=== PATIENT | female | born 1935 | race Two or more races ===

== ENCOUNTER 2019-09-11 13:28 | Outpatient (CLI) | payer OTHER, SELFPAY ==
--- NOTE | ~2019-09-11 | XR_ITS ---
XR ribs LT 2V DATE: 09/11/2019 15:04 INDICATION: Lateral left rib pain. History of left breast cancer. TECHNIQUE: 3 views of left ribs COMPARISON: None FINDINGS: Diffuse osteopenia. No rib fracture or bone destruction is noted on the left. No left pulmonary infiltrate or consolidation or pneumothorax or pleural effusion. There is aortic calcification, ectasia and tortuosity. There is scoliosis and degenerative change of the thoracic and lumbar spine. IMPRESSION: Osteopenia; no evidence of left rib fracture Reviewed, dictated and finalized at location A.
--- NOTE | ~2019-09-11 | MMUS_ITS ---
EXAMINATION: MM diagnostic javi LT w lamonte, US breast LT limited HISTORY: Patient with biopsy-proven left breast cancer undergoing chemotherapy only therapy. TECHNIQUE: Craniocaudal, mediolateral, and mediolateral oblique 3-D tomosynthesis images of the left breast were performed and synthetic 2-D images were generated. An exaggerated lateral left craniocaud al image is also obtained. CAD analysis was submitted and interpreted. High resolution limited left b reast ultrasound was performed. COMPARISON: 01/02/2018 BREAST PARENCHYMAL COMPOSITION: The breasts are heterogeneously dense, which may obscure small masses . FINDINGS: MAMMOGRAPHIC FINDINGS: A biopsy marker is present in the posterior third of the upper outer quadrant of the breast at the 1: 00 location 9 cm from the nipple. Just posterior to this, there is a 2.6 x 1.5 cm irregular high dens ity spiculated mass with associated architectural distortion 10 cm from the nipple. ULTRASOUND: There is an approximately 2.5 x 1.1 cm irregular, parallel, hypoechoic mass with microlobulated borde r, internal vascularity, and mixed posterior features at the 1:00 location 6 cm from the nipple corre sponding to the mammographic finding in question. The mass has not significantly changed since the pr ior comparison ultrasound examination. IMPRESSION: 1. Stable left breast mass apparently consistent with known malignancy. 2. Recommend imaging follow-up as directed by clinical findings and desire for treatment. BI-RADS category 6, known, biopsy-proven malignancy. Reviewed, dictated and finalized at location A. IMPRESSION: 1. Stable left breast mass apparently consistent with known malignancy. 2. Recommend imaging follow-up as directed by clinical findings and desire for treatment. BI-RADS category 6, known, biopsy-proven malignancy.
== END 2019-09-11 13:29 | disposition home or self-care (01) ==
PROVIDERS: PCP Internal Medicine Medical Oncology; Visit Provider Internal Medicine Medical Oncology
DX: C50.411 Malignant neoplasm of upper-outer quadrant of right female breast (principal); Z17.0 Estrogen receptor positive status [ER+]; M85.88 Other specified disorders of bone density and structure, other site
CPT/HCPCS: 71100; 76642; 77061; 77065; G0279

== ENCOUNTER 2023-09-23 10:24 | Outpatient (CLI) | payer OTHER, SELFPAY ==
--- NOTE | ~2023-09-23 | MR_ITS ---
EXAMINATION: MR brain/brain stem wo con DATE: 09/23/2023 11:44 INDICATION: Dizziness. TECHNIQUE: Magnetic resonance imaging (MRI) of the brain and brainstem was performed without intraven ous contrast. COMPARISON: Brain MRI 10/22/2018, head CT 07/17/2012 FINDINGS: There are scattered areas of nonspecific increased T2-weighted signal intensity in the cere bral white matter. There is no intracranial hemorrhage, acute infarction, or abnormal intracranial ma ss lesion. The ventricles are normal in size. There is mucosal thickening in the paranasal sinuses. T here are likely changes of ocular lens replacement surgeries. The mastoid air cells are normal. IMPRESSION: 1. Moderate nonspecific cerebral white matter disease, which likely represents chronic small vessel i schemic disease, stable from 10/22/2018. Reviewed, dictated and finalized at location E. IMPRESSION: 1. Moderate nonspecific cerebral white matter disease, which likely represents chronic small vessel ischemic disease, stable from 10/22/2018.
== END 2023-09-23 10:25 ==
LOC: MICIMG 10:25
PROVIDERS: PCP Nurse Practitioner Family; Visit Provider Nurse Practitioner Family
DX: R42 Dizziness and giddiness (principal); R29.90 Unspecified symptoms and signs involving the nervous system
CPT/HCPCS: 70551

== ENCOUNTER 2024-04-29 09:58 | Inpatient (IN) | payer OTHER, SELFPAY ==
[2024-04-29] VITALS (7 sets, daily range): BP systolic 113–162; BP diastolic 53–99; PULSE 98–108; RESP 18–20; TEMP 36.8–38.1; O2SAT 94–100; BMI 22.2
--- NOTE | ~2024-04-29 | XR_ITS ---
EXAMINATION: XR knee LT 3V DATE: 04/29/2024 14:08 INDICATION: Left knee pain TECHNIQUE: Anteroposterior, oblique and crosstable lateral views of the left knee were obtained COMPARISON: None. FINDINGS: Alignment is normal. No fracture. Chondral calcinosis in the medial lateral compartments of the knee s. Joint spaces appear normal in all 3 compartments although this could be underestimated on nonweigh tbearing imaging. There are small marginal osteophytes in all 3 compartments. There is also a central subchondral osteophyte at the apical ridge of the patella suggesting overlying high-grade chondromal acia. Moderate-sized left knee joint effusion without layering lipohemarthrosis. Soft tissues are oth erwise unremarkable. IMPRESSION: 1. Moderate-sized left knee joint effusion. No acute osseous abnormality. 2. Chondrocalcinosis and least mild tricompartmental osteoarthritis with likely high-grade chondromal acia along the patellar apical ridge. Reviewed, dictated and finalized at location B. H STRIPPER IMPRESSION: 1. Moderate-sized left knee joint effusion. No acute osseous abnormality. 2. Chondrocalcinosis and least mild tricompartmental osteoarthritis with likely high-grade chondromalacia along the patellar apical ridge.
--- NOTE | ~2024-04-29 | XR_ITS ---
XR chest 1V portable Ordering provider: Shirley Dumont MD History: 88 years Female with . WEAKNESS . Comparison: None. FINDINGS: MEDIASTINUM: The cardiac silhouette is not enlarged. LUNGS: No infiltrates, effusions or pneumothorax. OTHER: No free air under the diaphragm. Degenerative changes of the spine. IMPRESSION: No acute cardiopulmonary pathology. Reviewed, dictated and finalized at location A. NESS REPORTER
--- NOTE | ~2024-04-29 | MR_ITS ---
EXAMINATION: MR knee RT wo con DATE: 05/01/2024 12:39 INDICATION: Locked right knee TECHNIQUE: Magnetic resonance imaging (MRI) of the right knee was performed without intravenous contr ast. Sequences included coronal PD-weighted FSE, coronal PD-weighted FS FSE, sagittal T2-weighted FS E, sagittal PD-weighted FS FSE and axial PD weighted fat saturated FSE. COMPARISON: Right knee radiographs dated 04/29/2024 FINDINGS: Evaluation mild to moderately limited by motion artifact on the sagittal and coronal images. Medial compartment: Medial meniscus is normal. There are some partial-thickness chondral fissuring with tiny central subc hondral osteophytes at the posterior weightbearing medial femoral condyle. Small marginal osteophytes are present. Lateral compartment: Complex tear with macerated appearance of the body of the lateral meniscus. The anterior horn is not identified with either secondary degeneration or displacement of the meniscal tissue. Deep chondral ulceration without degenerative subchondral changes along the central to posterior weightbearing late ral femoral condyle. Additional deep chondral ulceration also without degenerative subchondral change s at the posterior aspect of the lateral tibial plateau. Moderate size marginal osteophytes are prese nt. Patellofemoral compartment: Deep chondral ulceration with underlying subarticular cystlike changes at the inferior third of the l ateral patellar facet. Less severe partial thickness chondral fissuring at the patellar apical ridge. There is deep chondral fissuring without degenerative subchondral changes at the inferior aspect of the trochlear groove. Full-thickness chondral ulceration with surface irregularity and small central subchondral osteophytes along the inferior aspect of the medial lateral trochlea. Ligaments and tendons: Anterior and posterior cruciate ligaments are normal. The medial collateral ligament is normal. There is thickening and mild increased signal without surrounding edema at the proximal fibular collateral ligament consistent with scarring related to chronic sprain. Mild tendinopathy without tear at the p opliteal tendon. Patellar tendon is normal. Mild distal quadriceps tendinopathy without discrete tear . The visualized medial and lateral hamstring tendons as well as the iliotibial band are normal. Fluid: Moderate-sized right knee joint effusion with mild sclerosis at the suprapatellar pouch. No loose ost eochondral bodies identified. Osseous/other: No fracture or pathologic marrow replacing process. Subcutaneous edema about the right knee. IMPRESSION: 1. Complex lateral meniscal tear with macerated appearance of the meniscal body and no discernible an terior horn suggesting significant secondary displacement or degeneration of the meniscal tissue. 2. 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 3. Scarring consistent with chronic sprain of the proximal fibular collateral ligament. 4. Mild tendinopathy without tears at the quadriceps and popliteal tendons. 5. Likely reactive moderate sized right knee joint effusion. Reviewed, dictated and finalized at location B. TATION MECHANIC IMPRESSION: 1. Complex lateral meniscal tear with macerated appearance of the meniscal body and no discernible anterior horn suggesting significant secondary displacement or degeneration of the meniscal tissue. 2. 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 3. Scarring consistent with chronic sprain of the proximal fibular collateral l igament. 4. Mild tendinopathy without tears at the quadriceps and popliteal tendons. 5. Likely reactive moderate sized right knee joint effusion.
--- NOTE | ~2024-04-29 | XR_ITS ---
EXAMINATION: XR hip LT 2V w AP pelvis DATE: 04/29/2024 14:08 INDICATION: Left hip pain. TECHNIQUE: An anteroposterior view of the pelvis and 3 views of left hip were obtained. COMPARISON: None. FINDINGS: There is thoracolumbar dextroscoliosis and mild spondylosis. No fracture. There is mild ost eoarthritis of the hips. IMPRESSION: 1. Mild osteoarthritis of the hips. Reviewed, dictated and finalized at location A. OR WEB DEVELOPER
--- NOTE | ~2024-04-29 | XR_ITS ---
XR knee RT 3V Ordering provider: Josh Mensah MD History: . pain . Comparison: None. FINDINGS: BONES: No acute fracture or dislocation. JOINT SPACES: Narrowing of the lateral compartment. Chondrocalcinosis. Marginal osteophytes in the pa tella. SOFT TISSUES: Fluid seen in the suprapatellar bursa. IMPRESSION: No acute osseous abnormality right knee. Chondrocalcinosis. Mild to moderate osteoarthritic changes. Reviewed, dictated and finalized at location A. FIRST
--- NOTE | ~2024-04-29 | XR_ITS ---
HISTORY: fall, pain COMPARISON: None TECHNIQUE: 3 views of the left ankle were performed FINDINGS: No acute fracture or dislocation. No significant soft tissue swelling. The ankle mortise is preserved. Diffuse bony demineralization. Moderate calcaneal spur is demonstrated. IMPRESSION: Trace degenerative disease and diffuse bony demineralization without acute fracture. Reviewed, dictated and finalized at location A. GY PROJECT ENGINEER IMPRESSION: Trace degenerative disease and diffuse bony demineralization witho ut acute fracture.
--- NOTE | ~2024-04-29 | XR_ITS ---
HISTORY: fall, pain COMPARISON: None TECHNIQUE: 3 views of the right ankle were performed FINDINGS: No acute fracture or dislocation. No significant soft tissue swelling. The ankle mortise is preserved. Diffuse bony demineralization. Prominent calcaneal spur. Significant medial tibiotalar joint space narrowing with osteophyte formation. IMPRESSION: Degenerative disease and diffuse bony demineralization without acute fracture. Reviewed, dictated and finalized at location A. HER OF THE DEAF IMPRESSION: Degenerative disease and diffuse bony demineralization without acu te fracture.
--- OUTSIDE RECORDS SUMMARY | 2024-04-29 11:04 | XMS_ITS | Clinical Summary ---
Author Organization [facility] Address [address] [place] [address] Phone Care Team Providers Care Baker Bread Name Role Phone Leora Bullock MD Unavailable [phone] Brigitte Michael MD PhD Unavaila ble Shira Gold NP Unavailable [phone] Allergies Active Allergy Reactions Criticality Noted Date Comments Lisinopril Swelling Medium 01/13/2020 Medications anastrozole (ARIMIDEX) 1 mg tabletIndications: Hormone Receptor Positive Breast Cancer Take 1 tablet (1 mg total) by mouth daily 30 tablet 3 Active pimecrolimus (ELIDEL) 1 % cream 4 Active ibandronate (BONIVA) 150 mg tablet Take 1 tablet (150 mg total) by mouth every 30 (thirty) days Take in AM with glass of water prior to food, don't lie down for 30 minutes. 1 tablet 11 4 01/03/20 25 Active levothyroxine (SYNTHROID) 50 mcg tabletIndications: Acquired hypothyroidism TAKE 1 TABLET BY MOUTH ONCE DAILY IN THE MORNING BEFORE BREAKFAST 30 tablet 5 Active Active Problems Problem Noted Date Diagnosed Date Medicare annual wellness visit, subsequent 03/21 Assessment & Plan (03/21/2023 1:02 PM BRANCH LENDING MANAGER): A yearly Medicare Annual Wellness Visit has been performed today. Liz Harp is up to date on screening tests. She is in need of None- no screening indicated at this time- these have been ordered. She is not up to date on needed preventative vaccinations; She is in need of Covid-19 (booster). These have been ordered/arranged unless otherwise indicated. Hair loss 05/18/2021 Assessment & Plan (05/18/2021 10:29 PM CDT): In talking with patient concern that she is losing a lot of hair all over her scalp. Note at this time she has her hair tightly pulled back into a bun. She is wearing her hair this way due to hair loss. Does not know that if it is from chemotherapy or other treatment that she had for her cancer in 2018. Note no new medication at this time. With evaluation of scalp it appears that she is breaking off her hair do to the hair style she is doing. Suggested she let her hair down while in house are where hair in a more relaxed style. Suggested using shampoo Nioxin #3 same livestock commission agent in his scalp treatment. Told her it would take about 3 months for this to start working and she should see new hair growth. Also suggested seen a mechanical operator in regards to this problem. History of breast cancer 01/19/2021 Personal history of radiation therapy 11/25/2020 History of 2019 novel coronavirus disease (COVID -19) 02/23/2020 Bilateral hearing loss 01/22/2020 Assessment & Plan (02/07/2021 5:21 PM BRANCH LENDING MANAGER): Monitor hearing for change. Let provider know if change. Assessment & Plan (01/22/2020 3:39 PM BRANCH LENDING MANAGER): Have Eye Evaluation Hearing test and [facility] BMI 21.0-21.9, adult 01/06/2020 Assessment & Plan (02/07/2021 5:20 PM BRANCH LENDING MANAGER): Watch diet, eat 3 meals a day or 6 small meals a day. Use fortified cereals or shakes. Weight weekly. Make sure you are drinking adequate fluids. Age-related osteoporosis wit hout current pathological fracture 01/06/2020 Assessment & Plan (01/06/2020 1:34 PM BRANCH LENDING MANAGER): On Fosamax, will refill. Patient due for another bone density study. Order placed. Arthralgia of multiple joints 01/06/2020 Assessment & Plan (03/21/2023 1:01 PM BRANCH LENDING MANAGER): Continues topical Voltaren prn. Discussed oral medications but want to check labs first. Also suggested Collagen Peptides. Assessment & Plan (02/07/2021 5:26 PM BRANCH LENDING MANAGER): Talked about bilateral knee pain and options to care. Encouraged not to do keep knee bends, squatting, kneeling on knees. Exercise gently not to injur knees more. Topical OTC meds discussed for joint pain. Also talked about shoes and avoiding wearing high heels. Assessment & Plan (01/06/2020 1:34 PM BRANCH LENDING MANAGER): [id number]-inx-sawomqx pain relievers or choice recommended. Lgdvp-lk-oczqky exercises encouraged. Essential hypertension 01/06/2020 Assessment & Plan (09/19/2023 1:44 PM CDT): BP in good shape. Updated labs ordered. Assessment & Plan (03/21/2023 1:01 PM BRANCH LENDING MANAGER): BP in good shape. Updated labs ordered. Assessment & Plan (05/18/2021 10:31 PM CDT): Continue with high blood pressure medication as ordered. Watch diet for added salt or salty food. Exercise for 30 minutes 3 times a week as tolerated Suggested doing some long bone exercises. Assessment & Plan (02/07/2021 5:19 PM BRANCH LENDING MANAGER): Continue medications as directed. Watch diet for salt, avoid adding salt. Monitor BP at home daily, minimum of 3 times a week. Exercise as tolerated 3 times a week. Assessment & Plan (01/06/2020 11:13 AM BRANCH LENDING MANAGER): Trial of lisinopril 2.5 mg once a day. Low-sodium diet recommended. Aromatase inhibitor use 05/24/2018 Malignant neoplasm of upper- outer quadrant of left breast in female, estrogen receptor positive 01/30/2018 Cancer Staging:Clinical stage from 03/01/2018:Stage IB(cT1c, cN1, cM0, G2, ER: Positive, AZ: Positive, HER2: Negative, Oncotype DX score: 6) - Unsigned Pathologic stage from 07/14/2020:No Stage Recommended(ypT2, pN1, cM0, G2, ER+, AZ+, HER2-) - Signed by Brigitte Michael MD PhD on 07/14/2020 Assessment & Plan (02/07/2021 5:23 PM BRANCH LENDING MANAGER): Continue with oncology as advised by specialty. Continue with meds as directed. Assessment & Plan (01/12/2020 7:59 PM BRANCH LENDING MANAGER): On Arimidex. Managed by oncology Resolved Problems Problem Noted Date Diagnosed Date Resolved Date Dizziness and giddiness 01/06/202007/29 Assessment & Plan (01/22/2020 3:39 PM BRANCH LENDING MANAGER): Have Eye Evaluation Hearing test and [facility] Assessment & Plan (01/06/2020 1:33 PM BRANCH LENDING MANAGER): No dizziness today. Referred to ENT for further evaluation and management. Encounters Date Type Department Care Team Description 02/05/2024 [facility] Medical Office Building 2 Radiation Oncology [address] [place] [id number] Indigo Patterson PA from Last 3 Months Immunizations Immunization Administration Dates Next Due Influenza, Quadrivalent, Delores l Culture-based MDCK, Preservative Free, Antibiotic Free, Intramuscular 01/14/2021,03/01/2018 Influenza, Quadrivalent, Hig h Dose, Preservative Free, Intrr 01/06/2020 Influenza, Trivalent, IM (MDV) 02/01/2012 Influenza, Unspecified 03/21/2023(Deferr ed: Patient Refused),02/27/2022(Deferred: Patient Refused) Alberto (J&J) SARS-CoV-2 Vaccination 05/07/2020 Surgical History Surgery Date Site/Laterality Comments COLONOSCOPY BREAST LUMPECTOMY 02/27/2017 - 02/26/2018 Left BREAST LUMPECTOMY 06/27/2020 - 07/27/2020 Left BREAST BIOPSY Medical History Medical History Date Comments Breast cancer (HCC) 2018 History of radiation therapy 09/2020 Family History Medical History Relation Name Comments Breast cancer Neg Hx Endometrial cancer Neg Hx Ovarian cancer Neg Hx Thyroid cancer Neg Hx Relation Name Status Comments Father Mother Social History Tobacco Use Types Packs/Day Years Used Date Smoking Tobacco: Never Smokeless Tobacco: Never Tobacco Cessation:Counseling Given: Not Answered Alcohol Use Standard Drinks/Week Comments No 0 (1 standard drink = 0.6 oz pur e alcohol) AUDIT-C Answer Date Recorded Frequency of Alcohol Consumption Not on file 08/15/2022 Q2: How many drinks containi ng alcohol do you have on a typical day when you are drinking? Patient does not drink Frequency of Binge Drinking Not on file 07/28 PHQ-2 Answer Date Recorded PHQ-2 Total Score (If total score is 3 or more points, staff should administer the PHQ-9) 0 09/19/2023 Comments No Sex and Gender Information Value Date Recorded Sex Assigned at Not on file Legal Sex Female 4:52 AM BRANCH LENDING MANAGER Gender Identity Not on file Sexual Orientation Not on file Obstetrics History Para Term AB IAB SAB Ectopic Multiple Livin g Live Births 1 1 Date Outcome GA Total Labor Labor/2nd/3rd Weight Sex Type Anes PTL Nicole A1 A5 Name Clin Term Last Filed Vital Signs Vital Sign Reading Time Taken Comments Blood Pressure 130/80 09/19/2023 12:33 PM CDT Pulse 74 09/19/2023 12:33 PM CDT Temperature 36.7 C (98.1 F) 09/19/2023 12:33 PM CDT Respiratory Rate 18 05/09/2023 6:50 PM CDT Oxygen Saturation 98% 09/19/2023 12:33 PM CDT Inhaled Oxygen Concentration - - Weight 53.1 kg (117 lb) 09/19/2023 12:33 PM CDT Height 157.5 cm (5' 2 ) 09/19/2023 12:33 PM CDT Body Mass Index 21.4 09/19/2023 12:33 PM CDT Plan of Treatment Health Maintenance Due Date Last Done Comments DTaP/Tdap/Td Vaccine (1 - Tdap) 06/02/1946 Hepatitis B Screening 1953 Pneumococcal vaccine 65+ (1 of 2 - PCV) 06/02/1955 Zoster Vaccine (1 of 2) 06/02/1954 Covid-19 Vaccine (2 - Jansse n risk series) 06/04/2020 05/07/2020 Influenza Vaccine (#1) 2023 , 01/06/2020, 03/01/2018, Additional history exists Well Visit 65+ 03/21/2024 03/21/2023 Depression Screening 09/18/2024 09/19/2023, 03/21/2023, 05/07/2021, Additional history exists Fall Risk Assessment 09/18/2024 09/19/2023, 03/21/2023, 02/05/2021, Additional history exists Insurance [facility] backstitch [facility] Care Teams Baker Bread Relationship Specialty Start Date End Date Leora Bullock MD Radiation Oncologist Radiation Oncology 08/25/20 Brigitte Michael MD PhD [address] [place] [address] [place] [address] Surgeon Surgical Oncology 08/27/20 Shira Gold NP [address] [place] [id number] Nurse Practitioner Medical Oncology 02/15/23
--- OUTSIDE RECORDS SUMMARY | 2024-04-29 11:04 | XMS_ITS | Patient Health Summary ---
Author Organization [facility] Address [address] [place] [address] Care Team Providers Care Hand Wood Sander Name Role Phone Germain Jewell MD Primary Care Provider [phone] Note from [facility],non-owned Affiliates and Associated Physician Practices is amultiple site organization consisting of ambulatory clinics and hospital sitesin [place], [place], [place] and [place]. This disclosure is being madepursuant to the Care Everywhere program and may not contain all information available regarding this patient. Last updated 17.[facility] Social History Tobacco Use Types Packs/Day Years Used Date Smoking Tobacco: Never Assessed Sex and Gender Information Value Date Recorded Sex Assigned at Not on file Gender Identity Not on file Sexual Orientation Not on file Procedures * MRI BREAST BILAT [facility]WO CONTRAST(Performed 02/13/2018) Performed for Malignant neoplasm of upper-outer quadrant of left breast in female, estrogen receptor positive (HCC), Estrogen receptor positive * CREATININE BLOOD - POCT (IP) [facility](Performed 02/13/2018) Performed for Estrogen receptor positive Results * (ABNORMAL) MRI BREAST BILAT WWO CONTRAST (02/13/2018 8:15 PM FRONT DESK AGENT) Anatomical Region Laterality Modality Breast Bilateral Magnetic Resonan ce 02/14/2018 9:57 AM FRONT DESK AGENT Impressions 02/14/2018 2:13 PM FRONT DESK AGENT IMPRESSION: Right breast: No MR evidence of malignancy. Left breast: Irregular enhancing mass in the upper-outer quadrant of the left breast measuring 3.3 cm, consistent with patient's biopsy-proven malignant neoplasm. Enlarged left axillary lymph node is concerning for henrik involvement disease. ASSESSMENT: BI-RADS category 6: Known biopsy-proven cancer. RECOMMENDATION: Management per the patient's breast surgeon is recommended. I, Dr. CJ SHARMA M.D. have personally reviewed and interpreted this examination/study. This report was electronically signed by CJ SHARMA M.D. on 02/14/2018 2:13 PM . Narrative 02/14/2018 2:13 PM FRONT DESK AGENT BILATERAL BREAST MRI HISTORY: 82-year-old female with malignant neoplasm of the upper outer quadrant of the left breast, evaluate extent of disease COMPARISON: Comparison was made to previous breast ultrasound dated 01/02/2018. No pre or post biopsy mammograms are available for review at this time. TECHNIQUE: Multiplanar multisequence MR imaging of both breasts before and following the administration of 5.5 cc of Gadavist. Dynamic phase imaging was performed in the axial plane. Exam was processed by and interpreted on a POI dining room server including 3-D volume rendering, subtraction image processing and contrast kinetic analysis. FINDINGS: Background tissue pattern: Heterogeneous fibroglandular tissue. Degree of background parenchymal enhancement: mild. RIGHT BREAST: There is no suspicious mass or area of abnormal enhancement in the left breast. There is no abnormality of the right axilla, chest wall, or nipple areolar complex. LEFT BREAST: There is an irregular, spiculated enhancing mass in the upper outer quadrant of the left breast measuring 3.3 x 1.6 cm (series 6, image 79), consistent with the patient's biopsy-proven malignant neoplasm. There is an enlarged left axillary lymph node measuring 1.8 cm short axis (series 5, image 52), concerning for henrik involvement of disease. Although this mass is in close proximity to the left chest wall, no abnormal enhancement of the left chest wall or nipple areolar complex is seen. Inna Block DO ORDERABLES * (ABNORMAL) CREATININE BLOOD - POCT (IP) [facility] (02/13/2018 7:17 PM FRONT DESK AGENT) Creatinine POCT 1.40(A) 0.3 - 1.3 mg/dL [facility] POCT TESTING eGFR POCT 43(A) 60 ml/min [facility] POCT TESTING Blood BLOOD SPECIMEN / Unknown 02/13/2018 7:17 PM FRONT DESK AGENT Inna Block DO LAB - POINT OF CARE ORDERABLES [facility] POCT TESTING [id number] [phone] Care Teams Hand Wood Sander Relationship Specialty Start Date End Date Germain Jewell MD [address] [place] [address] PCP - General Family Medicine 02/13/18
--- OUTSIDE RECORDS SUMMARY | 2024-04-29 11:04 | XMS_ITS | Clinical Summary ---
Author Organization [facility] Address [address] [place] [address] Care Team Providers Care Architecture Analyst Name Role Phone Tahmina Retana DO Primary Care Provider [phone] Allergies No known active allergies Medications anastrozole (ARIMIDEX) 1 mg tablet 03/01/2018 Active Active Problems Problem Noted Date Diagnosed Date Aromatase inhibitor use 05/24/2018 Malignant neoplasm of upper- outer quadrant of left breast in female, estrogen receptor positive 01/30/2018 Resolved Problems Problem Noted Date Diagnosed Date Resolved Date Abnormal MRI, breast 02/16/2018 019 Lump of left breast 01/17/2018 05/25/19 19 Abnormal ultrasound of breast 01/17/2018 05/24/2018 Family History Medical History Relation Name Comments Diabetes Daughter Healthy Daughter Relation Name Status Comments Brother Alive Daughter Alive Father Maternal Grandfather Maternal Grandmother Mother Paternal Grandfather Paternal Grandmother Social History Tobacco Use Types Packs/Day Years Used Date Smoking Tobacco: Former Cigarettes 2 50 0 [birth year]1945 - 07/29/1995 Smokeless Tobacco: Never Tobacco Cessation:Counseling Given: Yes Alcohol Use Standard Drinks/Week Comments No 0 (1 standard drink = 0.6 oz pur e alcohol) Comments No Sex and Gender Information Value Date Recorded Sex Assigned at Not on file Legal Sex Female 8:20 AM SALES AGENT PROTECTIVE SERVICE Gender Identity Not on file Sexual Orientation Not on file 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 Not on file Not on file Not on file Last Filed Vital Signs Vital Sign Reading Time Taken Comments Blood Pressure 118/70 10/02/2019 10:58 AM CDT Pulse 68 08/29/2018 1:37 PM CDT Temperature 36.4 C (97.6 F) 04/16/2019 12:24 PM SALES AGENT PROTECTIVE SERVICE Respiratory Rate - - Oxygen Saturation 99% 08/29/2018 1:37 PM CDT Inhaled Oxygen Concentration - - Weight 55.3 kg (122 lb) 10/02/2019 10:58 AM CDT Height 162.6 cm (5' 4 ) 10/02/2019 10:58 AM CDT Body Mass Index 20.94 10/02/2019 10:58 AM CDT Plan of Treatment Health Maintenance Due Date Last Done Comments DTAP/TDAP/TD VACCINES (1 - Tdap) 06/02/1954 PNEUMOCOCCAL VACCINE 50+ YEA RS (1 of 1 - PCV) 1986 ZOSTER VACCINE (1 of 2) 1986 OSTEOPOROSIS SCREENING 2001 RSV VACCINE (60+ or ) (1 - 1-dose 75+ series) 06/02/2011 INFLUENZA VACCINE (#1) 2023 03/01/2018, 2011 Insurance [facility] [employer] Care Teams Architecture Analyst Relationship Specialty Start Date End Date Tahmina Retana DO PCP - General Family Practice 05/12/20
--- OUTSIDE RECORDS SUMMARY | 2024-04-29 11:04 | XMS_ITS | Referral Summary ---
Author Organization [facility] Address [address] [place] [address] Care Team Providers Care Fur Feeder Name Role Phone Germain Jewell MD Primary Care Provider [phone] Source Comments [facility],non-owned Affiliates and Associated Physician Practices is amultiple site organization consisting of ambulatory clinics and hospital sitesin [place], [place], [place] and [place]. This disclosure is being madepursuant to the Care Everywhere program and may not contain all information available regarding this patient. Last updated 17.[facility] [employer] Social History Tobacco Use Types Packs/Day Years Used Date Smoking Tobacco: Never Assessed Sex and Gender Information Value Date Recorded Sex Assigned at Not on file Gender Identity Not on file Sexual Orientation Not on file Plan of Treatment Not on file Care Teams Fur Feeder Relationship Specialty Start Date End Date Germain Jewell MD [address] [place] [address] PCP - General Family Medicine 02/13/18
--- OUTSIDE RECORDS SUMMARY | 2024-04-29 11:04 | XMS_ITS | Referral Summary ---
Author Organization [facility] Address [address] [place] [address] Phone Care Team Providers Care Production Sound Mixer Name Role Phone Leora Bullock MD Unavailable [phone] Brigitte Michael MD PhD Unavaila ble Shira Gold NP Unavailable [phone] Encounters Date Type Department Care Team Description 02/05/2024 Telephone [facility] Medical Office Building 2 Radiation Oncology [address] [place] [id number] Indigo Patterson PA from Last 3 Months Allergies Active Allergy Reactions Criticality Noted Date [...] 03/21 Assessment & Plan (03/21/2023 1:02 PM COMPUTER SCIENCES PROFESSOR): A yearly Medicare Annual Wellness Visit has [...] style. Suggested using shampoo Nioxin #3 same nuclear fuels research engineer in his scalp treatment. Told her it would take about 3 months for this to start working and she should see new hair growth. Also suggested seen a clinical engineering manager in regards to this problem. History of breast cancer 01/19/2021 Personal history of radiation therapy 11/25/2020 History of 2019 novel coronavirus disease (COVID -19) 02/23/2020 Bilateral hearing loss 01/22/2020 Assessment & Plan (02/07/2021 5:21 PM COMPUTER SCIENCES PROFESSOR): Monitor hearing for change. Let provider know if change. Assessment & Plan (01/22/2020 3:39 PM COMPUTER SCIENCES PROFESSOR): Have Eye Evaluation Hearing test and [facility] - [facility] BMI 21.0-21.9, adult 01/06/2020 Assessment & Plan (02/07/2021 5:20 PM COMPUTER SCIENCES PROFESSOR): Watch diet, eat 3 meals a day or 6 small meals a day. Use fortified cereals or shakes. Weight weekly. Make sure you are drinking adequate fluids. Age-related osteoporosis wit hout current pathological fracture 01/06/2020 Assessment & Plan (01/06/2020 1:34 PM COMPUTER SCIENCES PROFESSOR): On Fosamax, will refill. Patient due for another bone density study. Order placed. Arthralgia of multiple joints 01/06/2020 Assessment & Plan (03/21/2023 1:01 PM COMPUTER SCIENCES PROFESSOR): Continues topical Voltaren prn. Discussed oral medications but want to check labs first. Also suggested Collagen Peptides. Assessment & Plan (02/07/2021 5:26 PM COMPUTER SCIENCES PROFESSOR): Talked about bilateral knee pain and options to care. Encouraged not to do keep knee bends, squatting, kneeling on knees. Exercise gently not to injur knees more. Topical OTC meds discussed for joint pain. Also talked about shoes and avoiding wearing high heels. Assessment & Plan (01/06/2020 1:34 PM COMPUTER SCIENCES PROFESSOR): Gwmt-ckh-kvqdwnr pain relievers or choice recommended. Usnui-tk-amwcvw exercises encouraged. Essential hypertension 01/06/2020 Assessment & Plan (09/19/2023 1:44 PM CDT): BP in good shape. Updated labs ordered. Assessment & Plan (03/21/2023 1:01 PM COMPUTER SCIENCES PROFESSOR): BP in good shape. Updated labs ordered. Assessment & Plan (05/18/2021 10:31 PM CDT): Continue with high blood pressure medication as ordered. Watch diet for added salt or salty food. Exercise for 30 minutes 3 times a week as tolerated Suggested doing some long bone exercises. Assessment & Plan (02/07/2021 5:19 PM COMPUTER SCIENCES PROFESSOR): Continue medications as directed. Watch diet for salt, avoid adding salt. Monitor BP at home daily, minimum of 3 times a week. Exercise as tolerated 3 times a week. Assessment & Plan (01/06/2020 11:13 AM COMPUTER SCIENCES PROFESSOR): Trial of lisinopril 2.5 mg once a day. Low-sodium diet recommended. Aromatase inhibitor use 05/24/2018 Malignant neoplasm of upper- outer quadrant of left breast in female, estrogen receptor positive 01/30/2018 Cancer Staging:Clinical stage from 03/01/2018:Stage IB(cT1c, cN1, cM0, G2, ER: Positive, KS: Positive, HER2: Negative, Oncotype DX score: 6) - Unsigned Pathologic stage from 07/14/2020:No Stage Recommended(ypT2, pN1, cM0, G2, ER+, KS+, HER2-) - Signed by Brigitte Michael MD PhD on 07/14/2020 Assessment & Plan (02/07/2021 5:23 PM COMPUTER SCIENCES PROFESSOR): Continue with oncology as advised by specialty. Continue with meds as directed. Assessment & Plan (01/12/2020 7:59 PM COMPUTER SCIENCES PROFESSOR): On Arimidex. Managed by oncology Resolved Problems Problem Noted Date Diagnosed Date Resolved Date Dizziness and giddiness 01/06/2020/03/2020 Assessment & Plan (01/22/2020 3:39 PM COMPUTER SCIENCES PROFESSOR): Have Eye Evaluation Hearing test and [facility] - [facility] Assessment & Plan (01/06/2020 1:33 PM COMPUTER SCIENCES PROFESSOR): No dizziness today. Referred to ENT for further evaluation and management. Immunizations Immunization Administration Dates Next Due Influenza, Quadrivalent, Delores l Culture-based MDCK, Preservative Free, Antibiotic Free, Intramuscular 01/14/2021,03/01/2018 Influenza, Quadrivalent, Hig h Dose, Preservative Free, Intrr 01/06/2020 Influenza, Trivalent, IM (MDV) 02/01/2012 Influenza, Unspecified 03/21/2023(Deferr ed: Patient Refused),02/27/2022(Deferred: Patient Refused) [employer] ([employer]) SARS-CoV-2 Vaccination 05/07/2020 Social History Tobacco Use Types Packs/Day Years [...] on file Legal Sex Female 4:52 AM COMPUTER SCIENCES PROFESSOR Gender Identity Not on file Sexual Orientation Not on file Last Filed Vital Signs [...] 09/19/2023 12:33 PM CDT Plan of Treatment Not on file Insurance [facility] Member Subscriber Plan / Payer (Ef fective 2017-Present) Name:Liz Harp Relation to Subscriber:Self Name:Liz Harp Payer ID:[id number] (NAIC) Type:MEDICARE RISK OTHER Address: [place] [id number] FOR LIFE [facility] FOR LIFE [facility]ALTH[facility]ARE [facility] Care Teams Production Sound Mixer Relationship Specialty Start Date End Date Leora Bullock MD Radiation Oncologist Radiation Oncology 08/25/20 Brigitte Michael MD PhD [address] [facility] [place] [address] Surgeon Surgical Oncology 08/27/20 Shira Gold NP [address] [address] Nurse Practitioner Medical Oncology 02/15/23
--- OUTSIDE RECORDS SUMMARY | 2024-04-29 11:04 | XMS_ITS ---
Author Organization [facility] Address [address] [place] [address] Phone Care Team Providers Care Account Officer Name Role Phone Leora Bullock MD Unavailable [phone] Brigitte Michael MD PhD Unavaila ble Shira Gold NP Unavailable [phone] Active Problems Problem Noted Date Diagnosed Date Medicare annual wellness visit, subsequent 03/21 Assessment & Plan (03/21/2023 1:02 PM KNOT TIER): A yearly Medicare Annual Wellness Visit has [...] style. Suggested using shampoo Nioxin #3 same payroll and benefits manager in his scalp treatment. Told her it would take about 3 months for this to start working and she should see new hair growth. Also suggested seen a benzene worker in regards to this problem. History of breast cancer 01/19/2021 Personal history of radiation therapy 11/25/2020 History of 2019 novel coronavirus disease (COVID -19) 02/23/2020 Bilateral hearing loss 01/22/2020 Assessment & Plan (02/07/2021 5:21 PM KNOT TIER): Monitor hearing for change. Let provider know if change. Assessment & Plan (01/22/2020 3:39 PM KNOT TIER): Have Eye Evaluation Hearing test and [facility] - [facility] BMI 21.0-21.9, adult 01/06/2020 Assessment & Plan (02/07/2021 5:20 PM KNOT TIER): Watch diet, eat 3 meals a day or 6 small meals a day. Use fortified cereals or shakes. Weight weekly. Make sure you are drinking adequate fluids. Age-related osteoporosis wit hout current pathological fracture 01/06/2020 Assessment & Plan (01/06/2020 1:34 PM KNOT TIER): On Fosamax, will refill. Patient due for another bone density study. Order placed. Arthralgia of multiple joints 01/06/2020 Assessment & Plan (03/21/2023 1:01 PM KNOT TIER): Continues topical Voltaren prn. Discussed oral medications but want to check labs first. Also suggested Collagen Peptides. Assessment & Plan (02/07/2021 5:26 PM KNOT TIER): Talked about bilateral knee pain and options to care. Encouraged not to do keep knee bends, squatting, kneeling on knees. Exercise gently not to injur knees more. Topical OTC meds discussed for joint pain. Also talked about shoes and avoiding wearing high heels. Assessment & Plan (01/06/2020 1:34 PM KNOT TIER): Qzwk-xpo-prgmddu pain relievers or choice recommended. Lsjtn-tq-xmaphb exercises encouraged. Essential hypertension 01/06/2020 Assessment & Plan (09/19/2023 1:44 PM CDT): BP in good shape. Updated labs ordered. Assessment & Plan (03/21/2023 1:01 PM KNOT TIER): BP in good shape. Updated labs ordered. Assessment & Plan (05/18/2021 10:31 PM CDT): Continue with high blood pressure medication as ordered. Watch diet for added salt or salty food. Exercise for 30 minutes 3 times a week as tolerated Suggested doing some long bone exercises. Assessment & Plan (02/07/2021 5:19 PM KNOT TIER): Continue medications as directed. Watch diet for salt, avoid adding salt. Monitor BP at home daily, minimum of 3 times a week. Exercise as tolerated 3 times a week. Assessment & Plan (01/06/2020 11:13 AM KNOT TIER): Trial of lisinopril 2.5 mg once a day. Low-sodium diet recommended. Aromatase inhibitor use 05/24/2018 Malignant neoplasm of upper- outer quadrant of left breast in female, estrogen receptor positive 01/30/2018 Cancer Staging:Clinical stage from 03/01/2018:Stage IB(cT1c, cN1, cM0, G2, ER: Positive, WI: Positive, HER2: Negative, Oncotype DX score: 6) - Unsigned Pathologic stage from 07/14/2020:No Stage Recommended(ypT2, pN1, cM0, G2, ER+, WI+, HER2-) - Signed by Brigitte Michael MD PhD on 07/14/2020 Assessment & Plan (02/07/2021 5:23 PM KNOT TIER): Continue with oncology as advised by specialty. Continue with meds as directed. Assessment & Plan (01/12/2020 7:59 PM KNOT TIER): On Arimidex. Managed by oncology Current Treatment and Therapy Plans No current plan information found. Past Treatment and Therapy Plans No past plan information found. Radiation Treatments * Course C1 LTMULBRS 202009/07/2020 - 10/16/2020 Treatment Period Energy Fraction Dose Fractions Total Dose Plans Planned LEFT BREAST 09/07/2020 - 10/16/2020 200 25 / 5,000 LEFT SCV 09/07/2020 - 10/16/2020 200 25 / 5,000 LT BRS BOOST 10/12/2020 - 10/16/2020 250 5 / 1,250 Reference Points Delivered LT BREAST 09/07/2020 - 10/16/2020 5,000 LT BREAST BST 10/12/2020 - 10/16/2020 1,250 LT SCV 09/07/2020 - 10/16/2020 5,000 Resolved Problems Problem Noted Date Diagnosed Date Resolved Date Dizziness and giddiness 01/06/2020 06/2 03/2020 Assessment & Plan (01/22/2020 3:39 PM KNOT TIER): Have Eye Evaluation Hearing test and [facility] - [facility] Assessment & Plan (01/06/2020 1:33 PM KNOT TIER): No dizziness today. Referred to ENT for further evaluation and management.
--- OUTSIDE RECORDS SUMMARY | 2024-04-29 11:04 | XMS_ITS | Continuity of Care Document ---
Author Name [facility] Organization [facility] Care Team Providers Care Roller Billet Mill Name Role Phone [facility] Unavailable Unavailable Problems Combined list of problems from Department of Defense and Veterans Affairs facilities. It does not include entries that were removed or entered in error. Problem Status Onset Date Problem Type Date of Resolution Comments Source visit for: administrative purpose Inactive Condition [facility] HEPATIC CYST Active Condition [facility] joint pain, localized in the knee Active Condition [facility] pain in the leg (below the knee) Active Condition [facility] Allergies, Adverse Reactions, Alerts Combined list of allergies from Department of Defense and Veterans Affairs facilities. It does not include entries that were removed or entered in error. Substance Category Reaction Severity Reaction type Status Date Reported Comments Source No Known Allergies Drug allergy (disorder) active [address] [place] [address] Fredo Alec [facility]) Encounters Combined list of: 1) Encounters from Department of Veterans Affairs facilities going backup to the last 18 months, not all [place] inpatient encounters are included; 2) Encounters from the Department of Defense facilities going backup to 280 months. Location Location Details Encounter Type Encounter Number Reason For Visit Attending Provider ADM Date DC Date Status Disposition Source [address] [place] [address] Fredo ALONZO [facility] Internal Medicine ) OUTPATIENT [id number] swollen knee INDIRA SADLER CIV 05/31 Released w/o Limitations [address] [place] [address] Fredo ALONZO [facility] [place])(S cott Interna l Medicin e Tm) [address] [place] [address] Fredo ALONZO [facility] Internal Medicine ) TELE CONSULT [id number] Normal Duplex study right leg St. [facility] 06/01/11 INDIRA SADLER CIV 06/[address] [place] [address] Fredo ALONZO [facility]S cott Interna l Medicin e Tm) [address] [place] [address] Fredo ALONZO [facility] [place])([facility] Internal Medicine ) TELE CONSULT [id number] pls call pt FINN ROBERTS 06/[address] [place] [address] Fredo ALONZO [facility] [place])(S cott Interna l Medicin e Tm) [address] [place] [address] Fredo ALONZO [facility] [place]Sco tt Internal Medicine Tm) TELE CONSULT [id number] hepatic cyst f/u INDIRA SADLER CIV 06/[address] [place] [address] Group Fredo [facility] cott Interna l Medicin e Tm) Procedures Combined list of: 1) Procedures from Department of Veterans Affairs facilities going back up to thelast 18 months, not all [place] non-surgical procedures are included; 2) All procedures from the Department of Defense facilities. Procedure Procedure Type Code Date Perfomer Comments Sourc e Non-Physician Phone Call To Patient/Provide r Brief (5-10min) Non-Physician Phone Call To Patient/Provide r Brief (5-10min) [id number] 06/09/2011 FINN ROBERTS [facility] TELE ASSESS & MGT SRV PROV QUAL NONPHYS HLTH CARE PRO TO EST PAT,PARENT,GUAR D NOT ORIG REL ASSESS & MGT SRV PROV W/IN PREV 7 DAYS NOR LEAD ASSESS & MGT SRV/PX W/IN NXT 24 HR/SOON APT;5-10 MIN MED DIS 06/08/2011 [facility]D No data available for this section Ambulatory Pharmacy Social History Combined list of available smoking, tobacco, and other social history from Department of Defense and Veterans Affairs facilities. Social History Type Response Date Comment Sourc e This section is an empty social history section. [facility] Assessment and Plan Combined list of future care activities from Department of Defense and Veterans Affairs facilities (e.g., assessment and plan notes, appointments, orders, and referrals). Additional future care activities may be listed in the Plan of Care section. Result Assessment and Plan Date Source Assessment and Plan No data available for this section 04/29/2024 Ambulatory Pharmacy Functional Status Combined list of recent functional and cognitive assessments recorded at Department of Defense and Veterans Affairs ([place] Functional [place] Measurement (FIM) Scale: 1 = Total Assistance (Subject = 0% +), 2 = Maximal Assistance (Subject = 25% +), 3 = Moderate Assistance (Subject = 50% +), 4 = Minimal Assistance (Subject = 75% +), 5 = Supervision, 6 = Modified [place] (Device), 7 = Complete [place] (Timely, Safely). Assessment Date/Time Source Assessment Type Assessment Skill Assessment Score Assessment Details No data available for this section
--- OUTSIDE RECORDS SUMMARY | 2024-04-29 11:04 | XMS_ITS | Clinical Summary ---
Author Organization [facility] Address [address] [place] [address] Care Team Providers Care Dog Track Kennel Manager Name Role Phone Bradford Alcantara MD Primary Care Provider Unavailabl e Social History Tobacco Use Types Packs/Day Years Used Date Smoking Tobacco: Never Assessed Comments Unknown Sex and Gender Information Value Date Recorded Sex Assigned at Not on file Legal Sex Female 5:44 PM CDT Gender Identity Not on file Sexual Orientation Not on file Plan of Treatment Health Maintenance Due Date Last Done Comments DTaP, Tdap and Td Vaccines ( 1 - Tdap) 06/02/1954 Zoster Vaccines (1 of 2) 1986 Pneumococcal Vaccine: 65+ Ye ars (1 of 1 - PCV) 2001 RSV Immunization or 60+ Years (1 - 1-dose 75+ series) 06/02/2011 COVID-19 Vaccine ( - 2023-2 5 season) 2023 Influenza Adult (#1) 2023 Meningococcal B Vaccine Aged Out No l onger eligible based on patient's age to complete this topic Meningococcal Vaccine Aged Out No eh alfa eligible based on patient's age to complete this topic RSV Immunizations Under 20 Months Aged Out No longer eligible based on patient's age to complete this topic Care Teams Dog Track Kennel Manager Relationship Specialty Start Date End Date Bradford Alcantara MD PCP - General 06/01/11
--- OUTSIDE RECORDS SUMMARY | 2024-04-29 11:04 | XMS_ITS | Clinical Summary ---
Author Organization [facility] Address [address] [place] [address] Care Team Providers Care Help Aid Name Role Phone Germain Jewell MD Primary Care Provider [phone] Source Comments [facility],non-owned Affiliates and Associated Physician Practices is amultiple site organization consisting of ambulatory clinics and hospital sitesin [place], [place], [place] and [place]. This disclosure is being madepursuant to the Care Everywhere program and may not contain all information available regarding this patient. Last updated 17.[facility] Social History Tobacco Use Types Packs/Day Years Used Date Smoking Tobacco: Never Assessed Sex and Gender Information Value Date Recorded Sex Assigned at Not on file Gender Identity Not on file Sexual Orientation Not on file Plan of Treatment Health Maintenance Due Date Last Done Comments BONE DENSITY TESTING 1936 DTAP/TDAP/TD VACCINES (1 - Tdap) 06/02/1955 PNEUMOCOCCAL VACCINE 50+ (1 of 1 - PCV) 1986 ZOSTER VACCINE (1 of 2) 1986 Respiratory Syncytial Virus (RSV) Vaccine Pt: or over 60 yrs (1 - 1-dose 75+ series) 06/02/2011 COVID-19 VACCINE ( - 2023-2 5 season) 2023 INFLUENZA VACCINE (#1) 2023 DEPRESSION SCREENING 02/28/2024 MEDICARE AWV CALENDAR YEAR 2024 HEPATITIS B VACCINE Aged Out No longe r eligible based on patient's age to complete this topic HIB VACCINE Aged Out No longer eligi ble based on patient's age to complete this topic HPV VACCINE Aged Out No longer eligi ble based on patient's age to complete this topic MENINGOCOCCAL (Group B) VACCINE Aged Out No longer eligible based on patient's age to complete this topic MENINGOCOCCAL VACCINE Aged Out No eh alfa eligible based on patient's age to complete this topic Care Teams Help Aid Relationship Specialty Start Date End Date Germain Jewell MD [address] [place] [address] PCP - General Family Medicine 02/13/18
--- NOTE | 2024-04-29 12:38 | ECG_ITS ---
Test Date: 2024-04-29 12:42:36 Measurements Intervals Waterfall Rate: 106 P: 65 RI: 178 QRS: 36 QRSD: 61 T: 44 QT: 328 QTc: 437 Interpretive Statements SINUS TACHYCARDIA MODERATE ST DEPRESSION [0.05+ mV ST DEPRESSION] No previous ECG available for comparison Electronically Signed On 04-30-2024 16:05:01 BEHAVIORAL SPECIALIST by Elise Jerry M.D.
[2024-04-29 13:03] LABS: Alanine Aminotransferase 29 U/L (6-35); Albumin Level 4.1 g/dL (3.5-5.1); Alkaline Phosphatase 85 U/L (38-126); Anion Gap 14 mmol/L (4-12); Aspartate Amino Transferase 57 U/L (14-36); Bilirubin,Total 1.5 mg/dL (0.2-1.3); Blood Urea Nitrogen 19 mg/dL (7-17); Calcium 9.2 mg/dL (8.4-10.2); Carbon Dioxide 24 mmol/L (22-30); Chloride 103 mmol/L (98-107); Estimated CRCL calculation 40 ml/min; Estimated Glomerular Filt Rate > 60; Glucose 139 mg/dL (65-110); Sodium 141 mmol/L (137-145)
[2024-04-29 13:27] LABS: Basophils Percent Auto 0.2 % (0.2-1.2); Hematocrit 41.9 % (37.0-47.0); Hemoglobin 13.8 g/dL (12.0-15.0); Immature Granulocyte Absolute 0.03 K/mm3 (0.00-0.031); Immature Granulocyte Percent A 0.3 % (0-0.5); Lymphocytes Absolute Auto 0.97 K/mm3 (0.9-3.2); Mean Corpuscular HGB Conc 32.9 g/dl (32-36); Mean Corpuscular Hemoglobin 32.5 pg (26-34); Mean Corpuscular Volume 98.8 fl (80-100); Mean Platelet Volume 9.1 fl (7.4-10.4); Monocytes Absolute Auto 0.9 K/mm3 (0.1-0.6); Monocytes Percent Auto 9.2 % (2.6-8.5); Neutrophils Absolute Auto 7.8 K/mm3 (1.3-6.7); Neutrophils Percent Auto 80.3 % (45.5-73.1); Platelet Count Result 279 k/mm3 (150-375); Red Blood Count 4.24 M/mm3 (4.2-5.4); Red Cell Distribution Width 12.1 % (11.5-14.5); White Blood Count 9.7 K/mm3 (4.5-10.0)
--- NOTE | 2024-04-29 13:27 | ED.GENADULT ---
HPI - General Adult General Chief complaint: Weakness Stated complaint: weakness Time Seen by Provider: 04/29/24 12:47 History of Present Illness HPI narrative: Patient is an 88-year-old female who presents ER with weakness. Chronic over last 18 months. Was last able to walk 1 week ago. Now she cannot bend her knees due to pain. She is being dragged around her home on a bed sheet because she cannot walk. No fevers or chills or sweats. Has been felt to right knee was more swollen red the other day. Related Data Allergies Allergy/AdvReac Type Severity Reaction Status Date / Time No Known Allergies Allergy Mild Verified 04/29/24 12:44 Review of Systems Review of Systems: All systems reviewed & are unremarkable except as noted in HPI and below Constitutional: Constitutional: Reports no additional constitutional complaints ENT: Reports system reviewed and no additional complaints, except as documented Cardiovascular: Cardiovascular: Reports no additional cardiovascular complaints Respiratory: Respiratory: Reports no additional respiratory complaints Genitourinary: Genitourinary: Reports no additional female genitourinary complaints [facility] Past Medical History Medical History (Updated 04/29/24 @ 18:58 by Josh Mensah MD) Osteoporosis Breast cancer Atopic dermatitis Family History Family History (Updated 09/25/15 @ 23:19 by DOCTOR UNKNOWN) Mother Family history of arthritis Sibling Family history of diabetes mellitus in first degree relative Social History Social History Smoking status: Former smoker Second hand tobacco smoke exposure: No Smoking end date: 02/28/96 Alcohol intake: never Exam Narrative: GENERAL: Well-appearing, well-nourished, and in no acute distress. HEAD: Normocephalic, atraumatic. ENT: Mucous membranes moist. CHEST: Clear to auscultation. No respiratory distress. HEART: Regular rate and rhythm. Normal peripheral pulses. ABDOMEN: Soft, nontender, nondistended. EXTREMITIES: Tender palpation to the knees bilaterally without significant effusion or erythema. Unable to bend the knees due to severe pain. No discomfort to the hips or ankles bilaterally. Normal upper extremities. SKIN: Warm, dry, no rash. NEURO: Alert and oriented x3. PSYCH: Normal mood and affect. Course Course Emergency Course: Orthopedic surgery consulted. They do not feel strongly that patient has septic arthritis at this time but will follow cultures and round on the patient. Patient was started on ceftriaxone for UTI. IV fluids for rhabdomyolysis. Accepted by the hospitalist service. Vital Signs Vital signs: Vital Signs Temperature 98.3 F 04/29/24 10:04 Pulse Rate 103 H 04/29/24 10:04 Respiratory Rate 18 04/29/24 10:04 Blood Pressure 147/63 H 04/29/24 10:04 Pulse Oximetry 100 04/29/24 10:04 Oxygen Delivery Room Air 04/29/24 10:04 Temperature 99.9 F H 04/29/24 15:47 Pulse Rate 105 H 04/29/24 18:17 Respiratory Rate 20 04/29/24 18:17 Blood Pressure 153/64 H 04/29/24 18:17 Pulse Oximetry 97 04/29/24 18:17 Oxygen Delivery Room Air 04/29/24 10:04 Procedures Joint Aspiration/Injection Joint Asp./Inject. 1: Time Out Performed: No Side of body: right Joint Aspirated: knee Ultrasound Guidance: No Skin Prep: Chlorhexidine Local Anesthetic: lidocaine 1% and with epi Amount of anesthesia used (mL): 3 Needle Size Used: 18G Fluid Obtained: turbid Total fluid obtained (mL): 50 Patient Tolerated Procedure: well Complications: none Medical Decision Making Vital Signs Vital Signs: Vital Signs Temperature 98.3 F 04/29/24 10:04 Pulse Rate 103 H 04/29/24 10:04 Respiratory Rate 18 04/29/24 10:04 Blood Pressure 147/63 H 04/29/24 10:04 Pulse Oximetry 100 04/29/24 10:04 Oxygen Delivery Room Air 04/29/24 10:04 Temperature 99.9 F H 04/29/24 15:47 Pulse Rate 105 H 04/29/24 18:17 Respiratory Rate 20 04/29/24 18:17 Blood Pressure 153/64 H 04/29/24 18:17 Pulse Oximetry 97 04/29/24 18:17 Oxygen Delivery Room Air 04/29/24 10:04 Lab Data 04/29/24 12:45 04/29/24 12:45 Labs: Lab Results 04/29/24 04/29/24 04/29/24 Range/Units 12:44 12:45 14:58 WBC 9.7 (4.5-10.0) K/mm3 RBC 4.24 (4.2-5.4) M/mm3 Hgb 13.8 (12.0-15.0) g/dL Hct 41.9 (37.0-47.0) % MCV 98.8 (80-100) fl MCH 32.5 (26-34) pg MCHC 32.9 (32-36) g/dl RDW 12.1 (11.5-14.5) % Plt Count 279 (150-375) k/mm3 MPV 9.1 (7.4-10.4) fl Immature Gran % (Auto) 0.3 (0-0.5) % Neut % (Auto) 80.3 H (45.5-73.1) % Lymph % (Auto) 10.0 L (18.3-44.2) % [place] % (Auto) 9.2 H (2.6-8.5) % Eos % (Auto) 0.0 (0-4.4) % Baso % (Auto) 0.2 (0.2-1.2) % Lymph # (Auto) 0.97 (0.9-3.2) K/mm3 [place] # (Auto) 0.9 H (0.1-0.6) K/mm3 Eos # (Auto) 0.0 (0-0.3) K/mm3 Baso # (Auto) 0.0 (0.0-0.1) K/mm3 Abs Immat Gran (auto) 0.03 (0.00-0.031) K/mm3 Absolute Neuts (auto) 7.8 H (1.3-6.7) K/mm3 Absolute Nucleated RBC 0.000 (0.0-0.012) K/mm3 Nucleated RBC % 0.0 (0.0-0.2) % ESR 77 H (0-20) mm/hr Sodium 141 (137-145) mmol/L Potassium 4.0 (3.4-5.0) mmol/L Chloride 103 (98-107) mmol/L Carbon Dioxide 24 (22-30) mmol/L Anion Gap 14 H (4-12) mmol/L BUN 19 H (7-17) mg/dL Creatinine 0.74 (0.7-1.0) mg/dL Estim Creat Clear Calc 40 ml/min Estimated GFR > 60 (59 - ) Glucose 139 H (65-110) mg/dL Calcium 9.2 (8.4-10.2) mg/dL Total Bilirubin 1.5 H (0.2-1.3) mg/dL AST 57 H (14-36) U/L ALT 29 (6-35) U/L Alkaline Phosphatase 85 (38-126) U/L Total Creatine Kinase 1052 H (30-135) U/L C-Reactive Protein 28.7 H (<1.0) mg/dL Total Protein 8.0 (6.3-8.2) g/dL Albumin 4.1 (3.5-5.1) g/dL Urine Color (Yellow) Urine Appearance (Clear) Urine pH (5.0-9.0) Ur Specific [place] (1.001-1.035) Urine Protein (Negative) mg/dL Urine Glucose (UA) (Negative) mg/dL Urine Ketones (Negative) mg/dL Ur Blood (Man) (Negative) Urine Nitrate (Negative) Urine Bilirubin (Negative) Urine Urobilinogen (<2.0) mg/dL Add Ur Microanalysis Leukocyte Esterase Rfl (Negative) LYRIC/UL Urine RBC (0-2) /hpf Urine WBC (0-3) /hpf Ur Squamous Epith Cells (Few) /hpf Urine Bacteria /hpf Urine Casts Urine Mucus /lpf Synovial Source Rt knee syn fluid Synovial Color Yellow (Colorless) Synovial Appearance Cloudy A (Clear) Synovial RBC 5000 H (0-0) /uL Synovial Nuc Cells 82109 H (0-200) /uL Synovial Neutrophils 88 H (0-25) % Synovial Lymphocytes 5 % Synovial Monocytes 7 % Synovial Crystals None seen (None Seen) Synovial Glucose Pending Synovial Total Protein Pending 04/29/24 Range/Units 15:44 WBC (4.5-10.0) K/mm3 RBC (4.2-5.4) M/mm3 Hgb (12.0-15.0) g/dL Hct (37.0-47.0) % MCV (80-100) fl MCH (26-34) pg MCHC (32-36) g/dl RDW (11.5-14.5) % Plt Count (150-375) k/mm3 MPV (7.4-10.4) fl Immature Gran % (Auto) (0-0.5) % Neut % (Auto) (45.5-73.1) % Lymph % (Auto) (18.3-44.2) % [place] % (Auto) (2.6-8.5) % Eos % (Auto) (0-4.4) % Baso % (Auto) (0.2-1.2) % Lymph # (Auto) (0.9-3.2) K/mm3 [place] # (Auto) (0.1-0.6) K/mm3 Eos # (Auto) (0-0.3) K/mm3 Baso # (Auto) (0.0-0.1) K/mm3 Abs Immat Gran (auto) (0.00-0.031) K/mm3 Absolute Neuts (auto) (1.3-6.7) K/mm3 Absolute Nucleated RBC (0.0-0.012) K/mm3 Nucleated RBC % (0.0-0.2) % ESR (0-20) mm/hr Sodium (137-145) mmol/L Potassium (3.4-5.0) mmol/L Chloride (98-107) mmol/L Carbon Dioxide (22-30) mmol/L Anion Gap (4-12) mmol/L BUN (7-17) mg/dL Creatinine (0.7-1.0) mg/dL Estim Creat Clear Calc ml/min Estimated GFR (59 - ) Glucose (65-110) mg/dL Calcium (8.4-10.2) mg/dL Total Bilirubin (0.2-1.3) mg/dL AST (14-36) U/L ALT (6-35) U/L Alkaline Phosphatase (38-126) U/L Total Creatine Kinase (30-135) U/L C-Reactive Protein (<1.0) mg/dL Total Protein (6.3-8.2) g/dL Albumin (3.5-5.1) g/dL Urine Color Dark yellow (Yellow) Urine Appearance Cloudy H (Clear) Urine pH 6.0 (5.0-9.0) Ur Specific [place] 1.027 (1.001-1.035) Urine Protein 2+ H (Negative) mg/dL Urine Glucose (UA) Negative (Negative) mg/dL Urine Ketones 3+ H (Negative) mg/dL Ur Blood (Man) 2+ H (Negative) Urine Nitrate Positive H (Negative) Urine Bilirubin 1+ H (Negative) Urine Urobilinogen 1.0 (<2.0) mg/dL Add Ur Microanalysis Reviewed Leukocyte Esterase Rfl Trace H (Negative) LYRIC/UL Urine RBC 3-5 H (0-2) /hpf Urine WBC 11-20 H (0-3) /hpf Ur Squamous Epith Cells None seen (Few) /hpf Urine Bacteria 4+ H /hpf Urine Casts 3-5 Urine Mucus Present /lpf Synovial Source Synovial Color (Colorless) Synovial Appearance (Clear) Synovial RBC (0-0) /uL Synovial Nuc Cells (0-200) /uL Synovial Neutrophils (0-25) % Synovial Lymphocytes % Synovial Monocytes % Synovial Crystals (None Seen) Synovial Glucose Synovial Total Protein Imaging Data Radiologist's impression: ITS Impressions Chest X-Ray 04/29/24 13:07 IMPRESSION: No acute cardiopulmonary pathology. Knee X-Ray 04/29/24 14:12 IMPRESSION: 1. Moderate-sized left knee joint effusion. No acute osseous abnormality. 2. Chondrocalcinosis and least mild tricompartmental osteoarthritis with likely high-grade chondromalacia along the patellar apical ridge. Hip/Pelvis X-Ray 04/29/24 14:13 IMPRESSION: 1. Mild osteoarthritis of the hips. Knee X-Ray 04/29/24 14:15 IMPRESSION: No acute osseous abnormality right knee. Chondrocalcinosis. Mild to moderate osteoarthritic changes. ECG Data EKG #1: ECG completion date: 04/29/24 ECG completion time: 12:42 EKG Interpretation: tachycardia (106), sinus rhythm, no ectopy, non-specific ST changes, normal QRS, normal QT and NL axis Critical Care Time Critical Care Time Critical Care Time: Yes Total Critical Care Time: 35 Discharge Plan Discharge Clinical Impression: Rhabdomyolysis, Acute UTI, Acute knee pain Patient Disposition: Still a Patient Condition: Stable Patient Language: Brazilian Prescriptions: No Action triamcinolone acetonide 0.025 % cream 1 applic TOPICAL BID Qty: 15 1RF Follow-up/Referrals: Frederic Regalado DO [Primary Care Provider] -
[2024-04-29] MEDS: MORPHINE SULFATE (*CRX) 4 MG/ML INJ 2 MG IV PUSH (13:37)
[2024-04-29] MEDS: SODIUM CHLORIDE 0.9% IV 1,000 ML 999 ML IV CONT (13:37)
--- OUTSIDE RECORDS SUMMARY | 2024-04-29 14:16 | XMS_ITS | Clinical Summary ---
Author Organization [facility] Address [address] [place] [address] Phone Care Team Providers Care Credit Review Officer Name Role Phone Leora Bullock MD Unavailable [phone] Brigitte Michael MD PhD Unavaila ble Shira Gold NP Unavailable [phone] Allergies Active Allergy Reactions Criticality Noted Date [...] 03/21 Assessment & Plan (03/21/2023 1:[address] PRODUCTION MANAGER): A yearly Medicare Annual Wellness Visit [...] style. Suggested using shampoo Nioxin #3 same patent prosecution attorney in his scalp treatment. Told her it would take about 3 months for this to start working and she should see new hair growth. Also suggested seen a tapping machine operator in regards to this problem. History of breast cancer 01/19/2021 Personal history of radiation therapy 11/25/2020 History of 2019 novel coronavirus disease (COVID -19) 02/23/2020 Bilateral hearing loss 01/22/2020 Assessment & Plan (02/07/2021 5:[address] PRODUCTION MANAGER): Monitor hearing for change. Let provider know if change. Assessment & Plan (01/22/2020 3:[address] PRODUCTION MANAGER): Have Eye Evaluation Hearing test and [facility] BMI 21.0-21.9, adult 01/06/2020 Assessment & Plan (02/07/2021 5:[address] PRODUCTION MANAGER): Watch diet, eat 3 meals a day or 6 small meals a day. Use fortified cereals or shakes. Weight weekly. Make sure you are drinking adequate fluids. Age-related osteoporosis wit hout current pathological fracture 01/06/2020 Assessment & Plan (01/06/2020 1:[address] PRODUCTION MANAGER): On Fosamax, will refill. Patient due for another bone density study. Order placed. Arthralgia of multiple joints 01/06/2020 Assessment & Plan (03/21/2023 1:[address] PRODUCTION MANAGER): Continues topical Voltaren prn. Discussed oral medications but want to check labs first. Also suggested Collagen Peptides. Assessment & Plan (02/07/2021 5:[address] PRODUCTION MANAGER): Talked about bilateral knee pain and options to care. Encouraged not to do keep knee bends, squatting, kneeling on knees. Exercise gently not to injur knees more. Topical OTC meds discussed for joint pain. Also talked about shoes and avoiding wearing high heels. Assessment & Plan (01/06/2020 1:[address] PRODUCTION MANAGER): [id number]-madvmad pain relievers or choice recommended. Dcxyd-ph-iotpqk exercises encouraged. Essential hypertension 01/06/2020 Assessment & Plan (09/19/2023 1:44 PM CDT): BP in good shape. Updated labs ordered. Assessment & Plan (03/21/2023 1:[address] PRODUCTION MANAGER): BP in good shape. Updated labs ordered. Assessment & Plan (05/18/2021 10:31 PM CDT): Continue with high blood pressure medication as ordered. Watch diet for added salt or salty food. Exercise for 30 minutes 3 times a week as tolerated Suggested doing some long bone exercises. Assessment & Plan (02/07/2021 5:[address] PRODUCTION MANAGER): Continue medications as directed. Watch diet for salt, avoid adding salt. Monitor BP at home daily, minimum of 3 times a week. Exercise as tolerated 3 times a week. Assessment & Plan (01/06/2020 11:[address] PRODUCTION MANAGER): Trial of lisinopril 2.5 mg once a day. Low-sodium diet recommended. Aromatase inhibitor use 05/24/2018 Malignant neoplasm of upper- outer quadrant of left breast in female, estrogen receptor positive 01/30/2018 Cancer Staging:Clinical stage from 03/01/2018:Stage IB(cT1c, cN1, cM0, G2, ER: Positive, NE: Positive, HER2: Negative, Oncotype DX score: 6) - Unsigned Pathologic stage from 07/14/2020:No Stage Recommended(ypT2, pN1, cM0, G2, ER+, NE+, HER2-) - Signed by Brigitte Michael MD PhD on 07/14/2020 Assessment & Plan (02/07/2021 5:[address] PRODUCTION MANAGER): Continue with oncology as advised by specialty. Continue with meds as directed. Assessment & Plan (01/12/2020 7:[address] PRODUCTION MANAGER): On Arimidex. Managed by oncology Resolved Problems Problem Noted Date Diagnosed Date Resolved Date Dizziness and giddiness 01/06/202007/29 Assessment & Plan (01/22/2020 3:[address] PRODUCTION MANAGER): Have Eye Evaluation Hearing test and [facility] Assessment & Plan (01/06/2020 1:[address] PRODUCTION MANAGER): No dizziness today. Referred to ENT for further evaluation and management. Encounters Date Type Department Care Team Description 02/05/2024 [facility] Medical Office Building 2 Radiation Oncology [address] [place] [id number] Indigo Patterson PA from Last 3 Months [...] on file Legal Sex Female 4:[address] PRODUCTION MANAGER Gender Identity Not on file Sexual [...] 09/19/2023, 03/21/2023, 02/05/2021, Additional history exists Insurance [facility] [employer] [facility] Care Teams Credit Review Officer Relationship Specialty Start Date End Date Leora Bullock MD Radiation Oncologist Radiation Oncology 08/25/20 Brigitte Michael MD PhD [address] [place] [address] [place] [address] Surgeon Surgical Oncology 08/27/20 Shira Gold NP [address] [place] [id number] Nurse Practitioner Medical Oncology 02/15/23
--- OUTSIDE RECORDS SUMMARY | 2024-04-29 14:16 | XMS_ITS | Referral Summary ---
Author Organization [facility] Address [address] [place] [address] Phone Care Team Providers Care Shooter'S Helper Name Role Phone Leora Bullock MD Unavailable [phone] Brigitte Michael MD PhD Unavaila ble Shira Gold NP Unavailable [phone] Encounters Date Type Department Care Team Description 02/05/2024 Telephone [facility] Medical Office Building 2 Radiation Oncology [address] [place] [phone] Indigo Patterson PA from Last 3 [...] 03/21 Assessment & Plan (03/21/2023 1:02 PM AIR TWIST OPERATOR): A yearly Medicare Annual Wellness Visit has [...] style. Suggested using shampoo Nioxin #3 same sequins winder in his scalp treatment. Told her it would take about 3 months for this to start working and she should see new hair growth. Also suggested seen a buffet attendant in regards to this problem. History of breast cancer 01/19/2021 Personal history of radiation therapy 11/25/2020 History of 2019 novel coronavirus disease (COVID -19) 02/23/2020 Bilateral hearing loss 01/22/2020 Assessment & Plan (02/07/2021 5:21 PM AIR TWIST OPERATOR): Monitor hearing for change. Let provider know if change. Assessment & Plan (01/22/2020 3:39 PM AIR TWIST OPERATOR): Have Eye Evaluation Hearing test and [facility] - [facility] BMI 21.0-21.9, adult 01/06/2020 Assessment & Plan (02/07/2021 5:20 PM AIR TWIST OPERATOR): Watch diet, eat 3 meals a day or 6 small meals a day. Use fortified cereals or shakes. Weight weekly. Make sure you are drinking adequate fluids. Age-related osteoporosis wit hout current pathological fracture 01/06/2020 Assessment & Plan (01/06/2020 1:34 PM AIR TWIST OPERATOR): On Fosamax, will refill. Patient due for another bone density study. Order placed. Arthralgia of multiple joints 01/06/2020 Assessment & Plan (03/21/2023 1:01 PM AIR TWIST OPERATOR): Continues topical Voltaren prn. Discussed oral medications but want to check labs first. Also suggested Collagen Peptides. Assessment & Plan (02/07/2021 5:26 PM AIR TWIST OPERATOR): Talked about bilateral knee pain and options to care. Encouraged not to do keep knee bends, squatting, kneeling on knees. Exercise gently not to injur knees more. Topical OTC meds discussed for joint pain. Also talked about shoes and avoiding wearing high heels. Assessment & Plan (01/06/2020 1:34 PM AIR TWIST OPERATOR): Ehtu-dks-gczwpqz pain relievers or choice recommended. Fyzan-rq-bpbezg exercises encouraged. Essential hypertension 01/06/2020 Assessment & Plan (09/19/2023 1:44 PM CDT): BP in good shape. Updated labs ordered. Assessment & Plan (03/21/2023 1:01 PM AIR TWIST OPERATOR): BP in good shape. Updated labs ordered. Assessment & Plan (05/18/2021 10:31 PM CDT): Continue with high blood pressure medication as ordered. Watch diet for added salt or salty food. Exercise for 30 minutes 3 times a week as tolerated Suggested doing some long bone exercises. Assessment & Plan (02/07/2021 5:19 PM AIR TWIST OPERATOR): Continue medications as directed. Watch diet for salt, avoid adding salt. Monitor BP at home daily, minimum of 3 times a week. Exercise as tolerated 3 times a week. Assessment & Plan (01/06/2020 11:13 AM AIR TWIST OPERATOR): Trial of lisinopril 2.5 mg once a day. Low-sodium diet recommended. Aromatase inhibitor use 05/24/2018 Malignant neoplasm of upper- outer quadrant of left breast in female, estrogen receptor positive 01/30/2018 Cancer Staging:Clinical stage from 03/01/2018:Stage IB(cT1c, cN1, cM0, G2, ER: Positive, OK: Positive, HER2: Negative, Oncotype DX score: 6) - Unsigned Pathologic stage from 07/14/2020:No Stage Recommended(ypT2, pN1, cM0, G2, ER+, OK+, HER2-) - Signed by Brigitte Michael MD PhD on 07/14/2020 Assessment & Plan (02/07/2021 5:23 PM AIR TWIST OPERATOR): Continue with oncology as advised by specialty. Continue with meds as directed. Assessment & Plan (01/12/2020 7:59 PM AIR TWIST OPERATOR): On Arimidex. Managed by oncology Resolved Problems Problem Noted Date Diagnosed Date Resolved Date Dizziness and giddiness 01/06/2020/03/2020 Assessment & Plan (01/22/2020 3:39 PM AIR TWIST OPERATOR): Have Eye Evaluation Hearing test and [facility] - [facility] Assessment & Plan (01/06/2020 1:33 PM AIR TWIST OPERATOR): No dizziness today. Referred to ENT for further evaluation and management. Immunizations Immunization Administration Dates Next Due Influenza, Quadrivalent, Delores l Culture-based MDCK, Preservative Free, Antibiotic Free, Intramuscular 01/14/2021,03/01/2018 Influenza, Quadrivalent, Hig h Dose, Preservative Free, Intrr 01/06/2020 Influenza, Trivalent, IM (MDV) 02/01/2012 Influenza, Unspecified 03/21/2023(Deferr ed: Patient Refused),02/27/2022(Deferred: Patient Refused) PhoneAndPhone (J&J) SARS-CoV-2 Vaccination 05/07/2020 Social History Tobacco [...] on file Legal Sex Female 4:52 AM AIR TWIST OPERATOR Gender Identity Not on file Sexual Orientation [...] Plan of Treatment Not on file Insurance [facility] Member Subscriber Plan / Payer (Ef fective 2017-Present) Name:Liz Harp Relation to Subscriber:Self Name:Liz Harp Payer ID:[id number] (NAIC) Type:MEDICARE RISK OTHER Address: [place] [id number] [facility] Address: [address] [place] [address] Care Teams Shooter'S Helper Relationship Specialty Start Date End Date Leora Bullock MD Radiation Oncologist Radiation Oncology 08/25/20 Brigitte Michael MD PhD [address] [facility] [place] [address] Surgeon Surgical Oncology 08/27/20 Shira Gold NP [address] [address] Nurse Practitioner Medical Oncology 02/15/23
--- OUTSIDE RECORDS SUMMARY | 2024-04-29 14:16 | XMS_ITS ---
Author Organization [facility] Address [address] [place] [address] Phone Care Team Providers Care Room Service Food Server Name Role Phone Leora Bullock MD Unavailable [phone] Brigitte Michael MD PhD Unavaila ble Shira Gold NP Unavailable [phone] Active Problems Problem Noted Date Diagnosed Date Medicare annual wellness visit, subsequent 03/21 Assessment & Plan (03/21/2023 1:02 PM BIOLOGICAL AIDE): A yearly Medicare Annual Wellness Visit has [...] style. Suggested using shampoo Nioxin #3 same anesthesiology teacher in his scalp treatment. Told her it would take about 3 months for this to start working and she should see new hair growth. Also suggested seen a textile artist in regards to this problem. History of breast cancer 01/19/2021 Personal history of radiation therapy 11/25/2020 History of 2019 novel coronavirus disease (COVID -19) 02/23/2020 Bilateral hearing loss 01/22/2020 Assessment & Plan (02/07/2021 5:21 PM BIOLOGICAL AIDE): Monitor hearing for change. Let provider know if change. Assessment & Plan (01/22/2020 3:39 PM BIOLOGICAL AIDE): Have Eye Evaluation Hearing test and [facility] - [facility] BMI 21.0-21.9, adult 01/06/2020 Assessment & Plan (02/07/2021 5:20 PM BIOLOGICAL AIDE): Watch diet, eat 3 meals a day or 6 small meals a day. Use fortified cereals or shakes. Weight weekly. Make sure you are drinking adequate fluids. Age-related osteoporosis wit hout current pathological fracture 01/06/2020 Assessment & Plan (01/06/2020 1:34 PM BIOLOGICAL AIDE): On Fosamax, will refill. Patient due for another bone density study. Order placed. Arthralgia of multiple joints 01/06/2020 Assessment & Plan (03/21/2023 1:01 PM BIOLOGICAL AIDE): Continues topical Voltaren prn. Discussed oral medications but want to check labs first. Also suggested Collagen Peptides. Assessment & Plan (02/07/2021 5:26 PM BIOLOGICAL AIDE): Talked about bilateral knee pain and options to care. Encouraged not to do keep knee bends, squatting, kneeling on knees. Exercise gently not to injur knees more. Topical OTC meds discussed for joint pain. Also talked about shoes and avoiding wearing high heels. Assessment & Plan (01/06/2020 1:34 PM BIOLOGICAL AIDE): Iwut-[id number]-[id number] pain relievers or choice recommended. Yevli-li-lbflcz exercises encouraged. Essential hypertension 01/06/2020 Assessment & Plan (09/19/2023 1:44 PM CDT): BP in good shape. Updated labs ordered. Assessment & Plan (03/21/2023 1:01 PM BIOLOGICAL AIDE): BP in good shape. Updated labs ordered. Assessment & Plan (05/18/2021 10:31 PM CDT): Continue with high blood pressure medication as ordered. Watch diet for added salt or salty food. Exercise for 30 minutes 3 times a week as tolerated Suggested doing some long bone exercises. Assessment & Plan (02/07/2021 5:19 PM BIOLOGICAL AIDE): Continue medications as directed. Watch diet for salt, avoid adding salt. Monitor BP at home daily, minimum of 3 times a week. Exercise as tolerated 3 times a week. Assessment & Plan (01/06/2020 11:13 AM BIOLOGICAL AIDE): Trial of lisinopril 2.5 mg once a day. Low-sodium diet recommended. Aromatase inhibitor use 05/24/2018 Malignant neoplasm of upper- outer quadrant of left breast in female, estrogen receptor positive 01/30/2018 Cancer Staging:Clinical stage from 03/01/2018:Stage IB(cT1c, cN1, cM0, G2, ER: Positive, UT: Positive, HER2: Negative, Oncotype DX score: 6) - Unsigned Pathologic stage from 07/14/2020:No Stage Recommended(ypT2, pN1, cM0, G2, ER+, UT+, HER2-) - Signed by Brigitte Michael MD PhD on 07/14/2020 Assessment & Plan (02/07/2021 5:23 PM BIOLOGICAL AIDE): Continue with oncology as advised by specialty. Continue with meds as directed. Assessment & Plan (01/12/2020 7:59 PM BIOLOGICAL AIDE): On Arimidex. Managed by oncology Current Treatment [...] 03/2020 Assessment & Plan (01/22/2020 3:39 PM BIOLOGICAL AIDE): Have Eye Evaluation Hearing test and [facility] - [facility] Assessment & Plan (01/06/2020 1:33 PM BIOLOGICAL AIDE): No dizziness today. Referred to ENT for further evaluation and management.
--- OUTSIDE RECORDS SUMMARY | 2024-04-29 14:16 | XMS_ITS | Clinical Summary ---
Author Organization [facility] Address [address] [place] [address] Care Team Providers Care Plastic Shaper Name Role Phone Bradford Alcantara MD Primary [...] age to complete this topic Care Teams Plastic Shaper Relationship Specialty Start Date End Date Bradford Alcantara MD PCP - General 06/01/11
--- OUTSIDE RECORDS SUMMARY | 2024-04-29 14:16 | XMS_ITS | Referral Summary ---
Author Organization [facility] Address [address] [place] [address] Care Team Providers Care Histology Assistant Name Role Phone Germain Jewell MD Primary Care Provider [phone] Source Comments [facility],non-owned Affiliates and Associated Physician Practices is amultiple site organization consisting of ambulatory clinics and hospital sitesin [place], [place], [place] and [place]. This disclosure is being madepursuant to the Care Everywhere program and may not contain all information available regarding this patient. Last updated 17.[facility] Social History Tobacco Use Types Packs/Day Years Used Date Smoking Tobacco: Never Assessed Sex and Gender Information Value Date Recorded Sex Assigned at Not on file Gender Identity Not on file Sexual Orientation Not on file Plan of Treatment Not on file Care Teams Histology Assistant Relationship Specialty Start Date End Date Germain Jewell MD [address] [place] [address] PCP - General Family Medicine 02/13/18
--- OUTSIDE RECORDS SUMMARY | 2024-04-29 14:16 | XMS_ITS | Patient Health Summary ---
Author Organization [facility] Address [address] [place] [address] Care Team Providers Care Sawmill Or Timber Yard Worker Name Role Phone Germain Jewell MD Primary Care Provider [phone] Note from [facility],non-owned Affiliates and Associated Physician Practices is amultiple site organization consisting of ambulatory clinics and hospital sitesin [place], [place], [place]. This disclosure is being madepursuant to the Care Everywhere program and may not contain all information available regarding this patient. Last updated 17.[facility] Social History Tobacco Use Types Packs/Day [...] BREAST BILAT WWO CONTRAST (02/13/2018 8:15 PM HEAD GOLF PROFESSIONAL) Anatomical Region Laterality Modality Breast Bilateral Magnetic Resonan ce 02/14/2018 9:57 AM HEAD GOLF PROFESSIONAL Impressions 02/14/2018 2:13 PM HEAD GOLF PROFESSIONAL IMPRESSION: Right breast: No MR evidence of [...] 2:13 PM . Narrative 02/14/2018 2:13 PM HEAD GOLF PROFESSIONAL BILATERAL BREAST MRI HISTORY: 82-year-old female with [...] was processed by and interpreted on a [employer] price accuracy supervisor including 3-D volume rendering, subtraction image processing [...] * (ABNORMAL) CREATININE BLOOD - POCT (IP) [facility] (02/13/2018 7:17 PM HEAD GOLF PROFESSIONAL) Creatinine POCT 1.40(A) 0.3 - 1.3 mg/dL [facility] POCT TESTING eGFR POCT 43(A) 60 ml/min [facility] Blood BLOOD SPECIMEN / Unknown 02/13/2018 7:17 PM HEAD GOLF PROFESSIONAL Inna Block DO LAB - POINT OF CARE ORDERABLES [facility] POCT TESTING [address] [phone] Care Teams Sawmill Or Timber Yard Worker Relationship Specialty Start Date End Date Germain Jewell MD [address] [place] [address] PCP - General Family Medicine 02/13/18
--- OUTSIDE RECORDS SUMMARY | 2024-04-29 14:16 | XMS_ITS | Clinical Summary ---
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
--- OUTSIDE RECORDS SUMMARY | 2024-04-29 14:16 | XMS_ITS | Clinical Summary ---
Author Organization [facility] Address [address] [place] [address] Care Team Providers Care Scrap Picker Name Role Phone Germain Jewell MD Primary Care Provider [phone] Source Comments [facility],non-owned Affiliates and Associated Physician Practices is amultiple site organization consisting of ambulatory clinics and hospital sitesin [place], [place], [place] and [place]. This disclosure is being madepursuant to the Care Everywhere program and may not contain all information available regarding this patient. Last updated 17.[facility] Social History Tobacco Use Types [...] age to complete this topic Care Teams Scrap Picker Relationship Specialty Start Date End Date Germain Jewell MD [address] [place] [address] PCP - General Family Medicine 02/13/18
[2024-04-29 15:17] LABS: Creatine Kinase 1052 U/L (30-135)
[2024-04-29 15:56] LABS: CRP 28.7 mg/dL (<1.0)
[2024-04-29 16:15] LABS: Source Synovial Fluid Rt Knee Syn Fluid
[2024-04-29 16:16] LABS: Appearance Synovial Fluid Cloudy (Clear); Color Synovial Fluid Yellow (Colorless); Lymphocytes Synovial Fluid 5 %; Monocytes Synovial Fluid 7 %; Neutrophils Synovial Fluid 88 % (0-25); Nucleated Cell Synovial Fluid 15745 /uL (0-200); RBC Synovial Fluid 5000 /uL (0-0)
[2024-04-29 16:17] LABS: Crystals Synovial Fluid None Seen (None Seen)
[2024-04-29 16:19] LABS: Add Urine Microscopic? YES; Appearance Urine Cloudy (Clear); Bacteria Urine 4+ /hpf; Bilirubin Urine 1+ (Negative); Blood Urine 2+ (Negative); Color Urine Dark Yellow (Yellow); Glucose Urine UA Negative (Negative); Ketones Urine 3+ mg/dL (Negative); Leukocyte Esterase Ur Trace LEU/UL (Negative); Mucus Urine Present /lpf; Need Manual Microscopic Reviewed; Nitrate Urine Positive (Negative); Protein Urine 2+ mg/dL (Negative); Specific Grav Ur 1.027 (1.001-1.035); Squamous Epithelial Cell Urine None Seen /hpf (Few)
[2024-04-29 16:35] LABS: Erythrocyte Sedimentation Rate 77 mm/hr (0-20)
[2024-04-29] MEDS: ACETAMINOPHEN 325 MG TABLET 650 MG PO (19:35)
[2024-04-29] MEDS: SODIUM CHLORIDE 0.9% IV 1,000 ML 150 ML IV CONT (19:35)
--- NOTE | 2024-04-29 20:34 | P.HP_ITS ---
H&P: HPI History of Present Illness Date/Time: 04/29/24 23:34 Chief Complaint: Fell last night was unable to get up Narrative: 88-year-old female with a past medical history of 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 The patient is alert orient to person, place and year. She is confused as to the month and thinks that it is June. She reports that she does have some memory difficulties that her mild. She has difficulty communicating her symptoms and is unclear if this is due to some of her confusion verses mild language barrier. The patient is originally from the [facility] nursing staff stated the patient's provided all significant information P The patient was so weak that the family had been moving the patient around the house by dragging her on a sheet. Patient has been having weakness for 18 months but has been unable to walk for 1 week. She tells me that she has intermittent upper abdominal pain that is severe when it occurs. She cannot provide any eliciting or relieving factors. He states last week or so. Still had a bowel movement. She denies any dysuria or increased urinary frequency or hematuria. She denies Melena or hematochezia. The reported the patient had been having left hip pain for 1 week but had not had a fall prior to yesterday. The patient states that she has been so weak she has not been able to remove around for the last week. She reports generalized muscle pains of her legs. She reports to me that her feet and ankles hurt. Initially she stated the pain was on the top of her foot but on exam patient has significant pain with dorsiflexion and worsened pain with active plantar flexion of bilateral feet. Pain is in the ball of the feet bilaterally. She denied any fevers or chills but in the ER was noted to have a fever of 100.5. She denies any respiratory symptoms. She reports she significant fatigue. Review of Systems 2 Review of Systems: 12 systems were reviewed with pertinent positives and negatives per HPI. Except as documented in the HPI, all other systems were reviewed and are negative. However, the patient is not the best historian [facility] Past Medical History Medical History (Updated 04/30/24 @ 01:03 by Sarika Sarmiento DO) Hyperlipidemia Vertigo Peptic ulcer disease Lumbar back pain with radiculopathy affecting left lower extremity Osteoporosis Breast cancer Diagnosed in 2019 left infiltrating ductal breast cancer T2 N1 ER positive [place] positive HER2 negative. The patient had delayed follow-up and initially had refused lumpectomy but eventually underwent lumpectomy. She did not receive chemotherapy or radiation therapy. Atopic dermatitis Surgical History Surgical History (Updated 04/30/24 @ 00:53 by Sarika Sarmiento DO) Status post left breast lumpectomy History of breast biopsy Family History Family History Mother Family history of arthritis Sibling Family history of diabetes mellitus in first degree relative Social History Social History (Updated 04/30/24 @ 00:56 by Sarika Sarmiento DO) Social History: She lives with her they were in 1968. She raised 4 children. She used to occasionally drink alcohol in moderation but has not done so in many years. She smoked 1 pack of cigarettes per day for about 25 years but quit at age 43. She denies illicit substance use. 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: Full code Surrogate decision maker: Smoking packs per day: 1 Smoking cigarettes per day: 20.0 Years smoked: 25 Smoking pack-years: 25.00 Smoking status: Former smoker Second hand tobacco smoke exposure: No Smoking end date: 02/28/96 Alcohol intake: former Substance use: never Do You Feel Safe in your Home?: Yes Lack of Transportation: No Lack of Food: Never True Current Housing: I Have Housing Concerned About Future Housing: No Difficulty Paying Gas/Electric Bills: No Difficulty Paying for Meds: No Currently Unemployed: No Education: Decline to Answer Difficulty w/ Childcare or Family Care: No Spiritual care concerns: No Meds Home Medications and Allergies Home Medications ?Medication ?Instructions ?Recorded ?Confirmed ?Type ibandronate 150 mg tablet 150 mg PO MONTHLY 04/29/24 04/29/24 History levothyroxine 50 mcg tablet 50 mcg PO DAILY 04/29/24 04/29/24 History Allergies Allergy/AdvReac Type Severity Reaction Status Date / Time No Known Allergies Allergy Mild Verified 04/29/24 12:44 Vital Signs Vital Signs - 24 hr 04/29/24 10:04 04/29/24 12:33 04/29/24 12:42 Temperature 98.3 F 98.2 F Pulse Rate 103 H 107 H 105 H Respiratory Rate 18 18 Blood Pressure 147/63 H 162/99 H Pulse Oximetry 100 99 Oxygen Delivery Room Air 04/29/24 15:47 04/29/24 18:17 04/29/24 19:34 Temperature 99.9 F H 100.5 F H Pulse Rate 108 H 105 H 102 H Respiratory Rate 19 20 18 Blood Pressure 150/69 H 153/64 H 129/53 L Pulse Oximetry 97 97 95 Oxygen Delivery Exam 2 Narrative: Weight 55.2 kg BMI 22.3 Const: Other: No acute distress, well-developed well-nourished, appears stated age HENMT: Other: Mucous membranes are tacky, no oral pharyngeal erythema, multiple missing teeth remainder of dentition in fair condition, head is normocephalic atraumatic Eyes: Other: Pupils are equal and reactive, no scleral icterus, no conjunctival pallor Neck: Other: No JVD, no lymphadenopathy, irregular thyroid Resp: Other: Clear to auscultation bilaterally, no increased work of breathing Cardio: Other: Sinus tachycardia, no murmur, no JVD GI: Other: Soft, tender in the epigastric region, the normoactive bowel sounds, nondistended, no organomegaly Skin: Other: No jaundice, no pallor, mild erythema over the bunion of the left foot but no increased warmth Neuro: Other: Alert oriented to person, place, year and current event, no facial asymmetry, extraocular movements intact, the patient generally weak but has no localizing neurologic deficits Extrem: Other: No clubbing, cyanosis edema, bandage over the right knee aspiration, arthritic changes noted to bilateral knees right greater than left, no increased warmth of either knee, mild increased erythema to the left bunion, bunion noted to the right foot as well but no associated erythema, pain on palpation bilateral balls of the foot, 1/5 strength on straight leg raise bilateral, no pain or limited range of motion of either shoulder Psych: Other: Appropriate mood and affect, pleasant and cooperative H&P: Results Labs Labs: Laboratory Tests 04/29/24 12:45 04/29/24 12:45 04/29/24 04/29/24 04/29/24 12:44 12:45 14:58 WBC 9.7 RBC 4.24 Hgb 13.8 Hct 41.9 MCV 98.8 MCH 32.5 MCHC 32.9 RDW 12.1 Plt Count 279 MPV 9.1 Immature Gran % (Auto) 0.3 Neut % (Auto) 80.3 H Lymph % (Auto) 10.0 L [place] % (Auto) 9.2 H Eos % (Auto) 0.0 Baso % (Auto) 0.2 Lymph # (Auto) 0.97 [place] # (Auto) 0.9 H Eos # (Auto) 0.0 Baso # (Auto) 0.0 Abs Immat Gran (auto) 0.03 Absolute Neuts (auto) 7.8 H Absolute Nucleated RBC 0.000 Nucleated RBC % 0.0 ESR 77 H Sodium 141 Potassium 4.0 Chloride 103 Carbon Dioxide 24 Anion Gap 14 H BUN 19 H Creatinine 0.74 Estim Creat Clear Calc 40 Estimated GFR > 60 Glucose 139 H Calcium 9.2 Total Bilirubin 1.5 H AST 57 H ALT 29 Alkaline Phosphatase 85 Total Creatine Kinase 1052 H Troponin I Pending C-Reactive Protein 28.7 H Total Protein 8.0 Albumin 4.1 Procalcitonin Pending Urine Color Urine Appearance Urine pH Ur Specific [place] Urine Protein Urine Glucose (UA) Urine Ketones Ur Blood (Man) Urine Nitrate Urine Bilirubin Urine Urobilinogen Add Ur Microanalysis Leukocyte Esterase Rfl Urine RBC Urine WBC Ur Squamous Epith Cells Urine Bacteria Urine Casts Urine Mucus Synovial Source Rt knee syn fluid Synovial Color Yellow Synovial Appearance Cloudy A Synovial RBC 5000 H Synovial Nuc Cells 01932 H Synovial Neutrophils 88 H Synovial Lymphocytes 5 Synovial Monocytes 7 Synovial Crystals None seen Synovial Glucose Pending Synovial Total Protein Pending 04/29/24 15:44 WBC RBC Hgb Hct MCV MCH MCHC RDW Plt Count MPV Immature Gran % (Auto) Neut % (Auto) Lymph % (Auto) [place] % (Auto) Eos % (Auto) Baso % (Auto) Lymph # (Auto) [place] # (Auto) Eos # (Auto) Baso # (Auto) Abs Immat Gran (auto) Absolute Neuts (auto) Absolute Nucleated RBC Nucleated RBC % ESR Sodium Potassium Chloride Carbon Dioxide Anion Gap BUN Creatinine Estim Creat Clear Calc Estimated GFR Glucose Calcium Total Bilirubin AST ALT Alkaline Phosphatase Total Creatine Kinase Troponin I C-Reactive Protein Total Protein Albumin Procalcitonin Urine Color Dark yellow Urine Appearance Cloudy H Urine pH 6.0 Ur Specific [place] 1.027 Urine Protein 2+ H Urine Glucose (UA) Negative Urine Ketones 3+ H Ur Blood (Man) 2+ H Urine Nitrate Positive H Urine Bilirubin 1+ H Urine Urobilinogen 1.0 Add Ur Microanalysis Reviewed Leukocyte Esterase Rfl Trace H Urine RBC 3-5 H Urine WBC 11-20 H Ur Squamous Epith Cells None seen Urine Bacteria 4+ H Urine Casts 3-5 Urine Mucus Present Synovial Source Synovial Color Synovial Appearance Synovial RBC Synovial Nuc Cells Synovial Neutrophils Synovial Lymphocytes Synovial Monocytes Synovial Crystals Synovial Glucose Synovial Total Protein Microbiology 04/29/24 14:58 Synovial Fluid Right Knee Gram Stain - Final Many white cells no organisms Impressions Chest X-Ray 04/29/24 13:07 IMPRESSION: No acute cardiopulmonary pathology. Knee X-Ray 04/29/24 14:12 IMPRESSION: 1. Moderate-sized left knee joint effusion. No acute osseous abnormality. 2. Chondrocalcinosis and least mild tricompartmental osteoarthritis with likely high-grade chondromalacia along the patellar apical ridge. Hip/Pelvis X-Ray 04/29/24 14:13 IMPRESSION: 1. Mild osteoarthritis of the hips. Knee X-Ray 04/29/24 14:15 IMPRESSION: No acute osseous abnormality right knee. Chondrocalcinosis. Mild to moderate osteoarthritic changes. Assessment and Plan Assessment and plan (1) Rhabdomyolysis: Qualifiers: Rhabdomyolysis type: non-traumatic Qualified Code(s): M62.82 - Rhabdomyolysis Code(s): M62.82 - Rhabdomyolysis Status: Acute (2) Effusion of right knee: Code(s): M25.461 - Effusion, right knee Status: Acute (3) Acute knee pain: Qualifiers: Laterality: right Qualified Code(s): M25.561 - Pain in right knee Code(s): M25.569 - Pain in unspecified knee Status: Acute (4) Abnormal urinalysis: Code(s): R82.90 - Unspecified abnormal findings in urine Status: Acute (5) Fever: Qualifiers: Fever type: due to other condition Qualified Code(s): R50.81 - Fever presenting with conditions classified elsewhere Code(s): R50.9 - Fever, unspecified Status: Acute Plan The patient has fever and tachycardia with multiple possible sources of infection with the UA concerning for UTI and possible infected joint effusion. However patient's fevers not high enough to qualify for sepsis and procalcitonin normal. Patient's tachycardia is resolved after IV fluid hydration of certainly a component of hypovolemia and dehydration given patient's decreased oral intake. X-rays did not demonstrate any localizing source of infection (chest x- ray knee and limb imaging). Blood cultures and urine culture have been obtained and are pending. The patient is having generalized lower extremity pain which could in part be due to her rhabdomyolysis. Will continue IV fluid hydration and repeat CK and CMP in a.m.. Repeat CBC in a.m. to monitor status of infection. And patient's joint aspiration did not demonstrate any evidence of organisms but many white cells can not elevated white cell ratio compared to RBC. Orthopedic surgery has been consulted and according there was no recommendation to start antibiotics for joint infection at this time. Will defer joint effusion to orthopedic surgery. However will check uric acid level although no crystals noted in patient's joint effusion so gouty cause for effusion less likely. The patient is having some moderate epigastric pain. Will start patient on Pepcid. If persistent symptoms/may need to consider more imaging. Will monitor total bili in and AST which were mildly elevated. The patient did have evidence of significant dehydration the +ketones in her urine. She received 1 L fluid bolus and has been continued on normal saline at 150 mL an hour. She does have a history of hypothyroidism and given her profound weakness will check TSH to ensure adequate response to therapy. Will provide the and will consult PT and OT for evaluation Patient has been admitted as observation status. Quality VTE Prophylaxis VTE prophylaxis: mechanical ordered (SCDs) Hospitalist [facility] Advance Care Plan I have confirmed that the patient's Advanced Care Plan is present, code status is documented, or surrogate decision maker is listed in patient medical record.: Yes Medication Reconciliation I have utilized all available resources to obtain, update and review the patients current medications (includes all prescriptions, OTC, herbals, cannabis, and nutritional supplements).: Yes
[2024-04-29 20:44] LABS: Troponin I 0.013 ng/mL (0.000-0.034)
[2024-04-29 20:50] LABS: Procalcitonin 0.4 ng/mL
--- NOTE | 2024-04-29 22:11 | ADMGEN ---
This patient, Liz Harp, was admitted to [address] [place] [address] Room 324-02. Patient/family oriented to hospital policies and general routines including ID bracelet, bed and alarms, visiting hours, pain management, procedures, bathroom and other care routines, personal items, smoking policy, room service/diet, and visiting hours. Information on how to activate the Rapid Response Team has been discussed. Patient/Family are encouraged to report perceived risks to care and to ask questions if they do not understand what they are told or what they should do.
[2024-04-30 01:58] LABS: Influenza A QL RT-PCR Negative (Negative); Influenza B QL RT-PCR Negative (Negative); RSV RNA, RT-PCR Negative (Negative); SARS-CoV-2 RNA PCR Negative (Negative)
[2024-04-30] MEDS: SODIUM CHLORIDE 0.9% IV 1,000 ML 150 ML IV CONT ×2 (04:45→12:52)
[2024-04-30] MEDS: LEVOTHYROXINE SODIUM 50 MCG TABLET PO (05:47)
[2024-04-30 06:00] VITALS: BP 166/76; PULSE 83; RESP 18; TEMP 36.6; O2SAT 98
--- NOTE | 2024-04-30 06:46 | PM.IMPN ---
Progress Note: A&P Assessment and Plan (1) Rhabdomyolysis: Qualifiers: Rhabdomyolysis type: non-traumatic Qualified Code(s): M62.82 - Rhabdomyolysis Code(s): M62.82 - Rhabdomyolysis Status: Acute Assessment and Plan: Patient with diffuse lower extremity bilateral pain. She was found to have a right knee effusion which was tapped. She denies back pain. She has low-grade fever and was mildly tachycardic but no elevated white count. Total CK is 1052 consistent with mild rhabdomyolysis. Repeat level trending downward. Decrease IV fluid rate. Start PT OT. (2) Acute knee pain: Qualifiers: Laterality: right Qualified Code(s): M25.561 - Pain in right knee Code(s): M25.569 - Pain in unspecified knee Status: Acute Assessment and Plan: Patient with right knee pain with imaging showing effusion. She had 5000 red cells and 15,000 white cells that were 88% neutrophils. No crystals. Gram stain showing many WBC but no MO. She is with diffuse LE symptoms but doubt disseminated gonococcal WBC <20K and no trauma so will add Vanco for MRSA coverage. Ortho consulted and appreciate their input. Narrow abx when able. Follow up on culture results. (3) Acute UTI: Code(s): N39.0 - Urinary tract infection, site not specified Status: Acute Assessment and Plan: UA is consistent with UTI. UCx collected. Rocephin started. UCx growing EColi. Follow up on UCx results. (4) Effusion of right knee: Code(s): M25.461 - Effusion, right knee Status: Acute Assessment and Plan: As above (5) Fever: Qualifiers: Fever type: due to other condition Qualified Code(s): R50.81 - Fever presenting with conditions classified elsewhere Code(s): R50.9 - Fever, unspecified Status: Acute Assessment and Plan: Related to above. Plan Hypothyroidism - TSH Normal. Macrocytosis - Check b12/folate Code status - full DVT prophylaxis - Lovenox Subjective Date/time seen: 04/30/24 06:46 Interval history: 88yo female with hx of breast CA, PUD and HLD here for a fall and knee pain. Patient developed diffuse pain with inability to move. She was very sensitive even to touch. No fall at home. She was having trouble moving her legs due to pain. She does state that the EMS dropped her in the cab and that she also fell in the ED. She had head injury and possibly LOC. No CP or SOB Exam Narrative: Tm 100.5 97.8 166/76 83 18 98% ra Gen - NARD Chest - CTA bilaterally, nml RR CV - RRR S1/S2 Abd - Soft, NT/ND, Positive BS Ext - No pedal edema. Bilateral UE strength and ROM normal without pain. 2/6 left anf 3/6 right hip flexors. Pain with passive ROM to the lower extremities. Good ROm to the ankles. Can not bend either knee. Psych - Nml mood but odd affect Skin - Warm and dry Objective Data Vital Signs Vital Signs: Vital Signs - 24 hr 04/29/24 10:04 04/29/24 12:33 04/29/24 12:42 Temperature 98.3 F 98.2 F Pulse Rate 103 H 107 H 105 H Respiratory Rate 18 18 Blood Pressure 147/63 H 162/99 H Pulse Oximetry 100 99 Oxygen Delivery Room Air 04/29/24 15:47 04/29/24 18:17 04/29/24 19:34 Temperature 99.9 F H 100.5 F H Pulse Rate 108 H 105 H 102 H Respiratory Rate 19 20 18 Blood Pressure 150/69 H 153/64 H 129/53 L Pulse Oximetry 97 97 95 Oxygen Delivery 04/29/24 22:00 04/29/24 22:25 04/30/24 06:00 Temperature 99.7 F H 97.8 F Pulse Rate 98 83 Respiratory Rate 18 18 Blood Pressure 113/86 166/76 H Pulse Oximetry 94 98 Oxygen Delivery Room Air Intake/Output Intake/Output: Intake & Output 04/27/24 04/28/24 04/29/24 04/30/24 23:59 23:59 23:59 23:59 Intake Total 1050 1200 Output Total 75 Balance 975 1200 Meds/Results Medications: Active Medications Generic Name Dose Route Start Last Admin Trade Name Freq PRN Reason Stop Dose Admin Acetaminophen 650 mg 04/29/24 18:53 04/29/24 19:35 Acetaminophen 325 Mg Tablet PO 650 mg Q4H PRN Administration Mild Pain (1-3) or Fever Hydrocodone Bitart/Acetaminophen 1 tab 04/29/24 18:53 Hydrocodone/Acetaminophen (*Crx) 5-325 Mg Tablet PO Q4H PRN Pain Rated 4-10 Famotidine 20 mg 04/30/24 09:00 Famotidine 20 Mg Tablet PO Q12HR [facility] Ceftriaxone Sodium 1 gm in 50 mls @ 100 mls/hr 04/30/24 12:00 Rocephin 1 Gm/Ns 50 Ml IVPB Q24H [facility] Sodium Chloride 1,000 mls @ 150 mls/hr 04/29/24 18:55 04/30/24 04:45 Normal Saline Iv IV CONT 150 mls/hr .[id number] MANJU Administration Levothyroxine Sodium 50 mcg 04/30/24 06:30 04/30/24 05:47 Levothyroxine Sodium 50 Mcg Tablet PO 50 mcg DAILY@0630 [facility] Administration Ondansetron HCl 4 mg 04/29/24 18:53 Ondansetron Inj 4 Mg/2 Ml Vial IV PUSH Q4H PRN Nausea Radiology Results: ITS Impressions Chest X-Ray 04/29/24 13:07 IMPRESSION: No acute cardiopulmonary pathology. Hip/Pelvis X-Ray 04/29/24 14:13 IMPRESSION: 1. Mild osteoarthritis of the hips. Knee X-Ray 04/29/24 14:15 IMPRESSION: No acute osseous abnormality right knee. Chondrocalcinosis. Mild to moderate osteoarthritic changes. Labs Labs: Laboratory Results - last 24 hr 04/29/24 04/29/24 04/29/24 12:44 12:45 14:58 WBC 9.7 RBC 4.24 Hgb 13.8 Hct 41.9 MCV 98.8 MCH 32.5 MCHC 32.9 RDW 12.1 Plt Count 279 MPV 9.1 Immature Gran % (Auto) 0.3 Neut % (Auto) 80.3 H Lymph % (Auto) 10.0 L [place] % (Auto) 9.2 H Eos % (Auto) 0.0 Baso % (Auto) 0.2 Lymph # (Auto) 0.97 [place] # (Auto) 0.9 H Eos # (Auto) 0.0 Baso # (Auto) 0.0 Abs Immat Gran (auto) 0.03 Absolute Neuts (auto) 7.8 H Absolute Nucleated RBC 0.000 Nucleated RBC % 0.0 ESR 77 H Sodium 141 Potassium 4.0 Chloride 103 Carbon Dioxide 24 Anion Gap 14 H BUN 19 H Creatinine 0.74 Estim Creat Clear Calc 40 Estimated GFR > 60 Glucose 139 H Calcium 9.2 Total Bilirubin 1.5 H AST 57 H ALT 29 Alkaline Phosphatase 85 Total Creatine Kinase 1052 H Troponin I 0.013 C-Reactive Protein 28.7 H Total Protein 8.0 Albumin 4.1 Procalcitonin 0.4 Urine Color Urine Appearance Urine pH Ur Specific [place] Urine Protein Urine Glucose (UA) Urine Ketones Ur Blood (Man) Urine Nitrate Urine Bilirubin Urine Urobilinogen Add Ur Microanalysis Leukocyte Esterase Rfl Urine RBC Urine WBC Ur Squamous Epith Cells Urine Bacteria Urine Casts Urine Mucus Synovial Source Rt knee syn fluid Synovial Color Yellow Synovial Appearance Cloudy A Synovial RBC 5000 H Synovial Nuc Cells 79668 H Synovial Neutrophils 88 H Synovial Lymphocytes 5 Synovial Monocytes 7 Synovial Crystals None seen Influenza A (RT-PCR) Influenza B (RT-PCR) RSV (RT-PCR) SARS-CoV-2 RNA (RT-PCR) 04/29/24 04/30/24 15:44 01:14 WBC RBC Hgb Hct MCV MCH MCHC RDW Plt Count MPV Immature Gran % (Auto) Neut % (Auto) Lymph % (Auto) [place] % (Auto) Eos % (Auto) Baso % (Auto) Lymph # (Auto) [place] # (Auto) Eos # (Auto) Baso # (Auto) Abs Immat Gran (auto) Absolute Neuts (auto) Absolute Nucleated RBC Nucleated RBC % ESR Sodium Potassium Chloride Carbon Dioxide Anion Gap BUN Creatinine Estim Creat Clear Calc Estimated GFR Glucose Calcium Total Bilirubin AST ALT Alkaline Phosphatase Total Creatine Kinase Troponin I C-Reactive Protein Total Protein Albumin Procalcitonin Urine Color Dark yellow Urine Appearance Cloudy H Urine pH 6.0 Ur Specific [place] 1.027 Urine Protein 2+ H Urine Glucose (UA) Negative Urine Ketones 3+ H Ur Blood (Man) 2+ H Urine Nitrate Positive H Urine Bilirubin 1+ H Urine Urobilinogen 1.0 Add Ur Microanalysis Reviewed Leukocyte Esterase Rfl Trace H Urine RBC 3-5 H Urine WBC 11-20 H Ur Squamous Epith Cells None seen Urine Bacteria 4+ H Urine Casts 3-5 Urine Mucus Present Synovial Source Synovial Color Synovial Appearance Synovial RBC Synovial Nuc Cells Synovial Neutrophils Synovial Lymphocytes Synovial Monocytes Synovial Crystals Influenza A (RT-PCR) Negative Influenza B (RT-PCR) Negative RSV (RT-PCR) Negative SARS-CoV-2 RNA (RT-PCR) Negative
[2024-04-30 07:09] LABS: Basophils Percent Auto 0.4 % (0.2-1.2); Eosinophils Percent Auto 0.3 % (0-4.4); Hematocrit 36.4 % (37.0-47.0); Hemoglobin 11.9 g/dL (12.0-15.0); Immature Granulocyte Absolute 0.02 K/mm3 (0.00-0.031); Immature Granulocyte Percent A 0.3 % (0-0.5); Lymphocytes Absolute Auto 0.68 K/mm3 (0.9-3.2); Lymphocytes Percent Auto 9.5 % (18.3-44.2); Mean Corpuscular HGB Conc 32.7 g/dl (32-36); Mean Corpuscular Hemoglobin 32.9 pg (26-34); Mean Corpuscular Volume 100.6 fl (80-100); Mean Platelet Volume 8.8 fl (7.4-10.4); Monocytes Absolute Auto 0.7 K/mm3 (0.1-0.6); Monocytes Percent Auto 9.1 % (2.6-8.5); Neutrophils Absolute Auto 5.8 K/mm3 (1.3-6.7); Neutrophils Percent Auto 80.4 % (45.5-73.1); Platelet Count Result 254 k/mm3 (150-375); Red Blood Count 3.62 M/mm3 (4.2-5.4); Red Cell Distribution Width 12.1 % (11.5-14.5); White Blood Count 7.2 K/mm3 (4.5-10.0)
--- NOTE | 2024-04-30 07:18 | P.CONOP_ITS ---
Assessment and Plan Assessment and plan (1) Knee pain, right: Code(s): M25.561 - Pain in right knee Status: Acute Assessment and Plan: Patient is knee pain right. She does have difficulty moving at all. She will need bend her knee much nor she able to bear weight on it. There has been for the last several days. Neurologically she appears to be grossly intact. Her x- rays shows degenerative change but not severe. She has had an aspiration and waiting for that. If infected she will need a washout. If not we will continue to treat symptomatic LEEP. Will begin therapy. If the cultures are negative can consider a cortisone injection later. I have discussed this with the patient in detail risks benefits limitations and alternatives. History of Present Illness HPI Consult date: 04/30/24 Chief complaint: Rhabdomyolysis, UTI, Knee pain Narrative: Patient is unable to bear weight move her knees well particularly the right knee for the last several days. No history of trauma. She does have a UTI. 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 The patient had delayed follow-up and initially had refused lumpectomy but eventually underwent lumpectomy. She did not receive chemotherapy or radiation therapy. Atopic dermatitis Surgical History Surgical History (Updated 04/30/24 @ 00:53 by Sarika Sarmiento DO) Status post left breast lumpectomy History of breast biopsy Family History Family History Mother Family history of arthritis Sibling Family history of diabetes mellitus in first degree relative Social History Social History (Updated 04/30/24 @ 00:56 by Sarika Sarmiento DO) Social History: She lives with her they were in 1968. She raised 4 children. She used to occasionally drink alcohol in moderation but has not done so in many years. She smoked 1 pack of cigarettes per day for about 25 years but quit at age 43. She denies illicit substance use. 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: Full code Surrogate decision maker: Smoking packs per day: 1 Smoking cigarettes per day: 20.0 Years smoked: 25 Smoking pack-years: 25.00 Smoking status: Former smoker Second hand tobacco smoke exposure: No Smoking end date: 02/28/96 Alcohol intake: former Substance use: never Do You Feel Safe in your Home?: Yes Lack of Transportation: No Lack of Food: Never True Current Housing: I Have Housing Concerned About Future Housing: No Difficulty Paying Gas/Electric Bills: No Difficulty Paying for Meds: No Currently Unemployed: No Education: Decline to Answer Difficulty w/ Childcare or Family Care: No Spiritual care concerns: No Meds Home Medications and Allergies Home Medications ?Medication ?Instructions ?Recorded ?Confirmed ?Type ibandronate 150 mg tablet 150 mg PO MONTHLY 04/29/24 04/29/24 History levothyroxine 50 mcg tablet 50 mcg PO DAILY 04/29/24 04/29/24 History Allergies Allergy/AdvReac Type Severity Reaction Status Date / Time No Known Allergies Allergy Mild Verified 04/29/24 12:44 Vital Signs Vital Signs - 24 hr 04/29/24 10:04 04/29/24 12:33 04/29/24 12:42 Temperature 98.3 F 98.2 F Pulse Rate 103 H 107 H 105 H Respiratory Rate 18 18 Blood Pressure 147/63 H 162/99 H Pulse Oximetry 100 99 Oxygen Delivery Room Air 04/29/24 15:47 04/29/24 18:17 04/29/24 19:34 Temperature 99.9 F H 100.5 F H Pulse Rate 108 H 105 H 102 H Respiratory Rate 19 20 18 Blood Pressure 150/69 H 153/64 H 129/53 L Pulse Oximetry 97 97 95 Oxygen Delivery 04/29/24 22:00 04/29/24 22:25 04/30/24 06:00 Temperature 99.7 F H 97.8 F Pulse Rate 98 83 Respiratory Rate 18 18 Blood Pressure 113/86 166/76 H Pulse Oximetry 94 98 Oxygen Delivery Room Air Exam 2 Narrative: Patient has painful motion of her right knee she would over left knee a bit. Neurologically she appears to be intact. She has mild swelling and erythema about the right knee. Radiology Reports: Comments: XRay Report Signed Patient: Liz Harp XR knee RT 3V Ordering provider: Josh Mensah MD History: . pain . Comparison: None. FINDINGS: BONES: No acute fracture or dislocation. JOINT SPACES: Narrowing of the lateral compartment. Chondrocalcinosis. Marginal osteophytes in the patella. SOFT TISSUES: Fluid seen in the suprapatellar bursa. IMPRESSION: No acute osseous abnormality right knee. Chondrocalcinosis. Mild to moderate osteoarthritic changes. Reviewed, dictated and finalized at location A. NGED INSTRUMENT REPAIRER Please be advised this is a medical document. It is intended for [id number] communication. It is written in medical language and may contain unfamiliar abbreviations or verbiage. Medical documents are intended to carry relevant information, facts as evident, and the clinical opinion of the practitioner at the time of the encounter. This report may have been done utilizing a voice recognition system. Attempts have been made to correct errors. However, there may be uncorrected grammatical, spelling, and recognition errors present. The file time of this note does not necessarily represent the time of service. Dictated By: Agustin Strong MD 04/29/24 1415 Signed By: <Electronically signed by Agustin Strong MD in OV> 2 Hip/Pelvis X-Ray 04/29/24 Knee X-Ray 04/29/24 Results Labs 04/29/24 12:45 04/29/24 12:45 Labs: Abnormal lab results 04/29/24 04/29/24 04/29/24 Range/Units 12:44 12:45 14:58 Neut % (Auto) 80.3 H (45.5-73.1) % Lymph % (Auto) 10.0 L (18.3-44.2) % [place] % (Auto) 9.2 H (2.6-8.5) % [place] # (Auto) 0.9 H (0.1-0.6) K/mm3 Absolute Neuts (auto) 7.8 H (1.3-6.7) K/mm3 ESR 77 H (0-20) mm/hr Anion Gap 14 H (4-12) mmol/L BUN 19 H (7-17) mg/dL Glucose 139 H (65-110) mg/dL Total Bilirubin 1.5 H (0.2-1.3) mg/dL AST 57 H (14-36) U/L Total Creatine Kinase 1052 H (30-135) U/L C-Reactive Protein 28.7 H (<1.0) mg/dL Urine Appearance (Clear) Urine Protein (Negative) mg/dL Urine Ketones (Negative) mg/dL Ur Blood (Man) (Negative) Urine Nitrate (Negative) Urine Bilirubin (Negative) Leukocyte Esterase Rfl (Negative) LYRIC/UL Urine RBC (0-2) /hpf Urine WBC (0-3) /hpf Urine Bacteria /hpf Synovial Appearance Cloudy A (Clear) Synovial RBC 5000 H (0-0) /uL Synovial Nuc Cells 30868 H (0-200) /uL Synovial Neutrophils 88 H (0-25) % 03/03/25 Range/Units 15:44 Neut % (Auto) (45.5-73.1) % Lymph % (Auto) (18.3-44.2) % [place] % (Auto) (2.6-8.5) % [place] # (Auto) (0.1-0.6) K/mm3 Absolute Neuts (auto) (1.3-6.7) K/mm3 ESR (0-20) mm/hr Anion Gap (4-12) mmol/L BUN (7-17) mg/dL Glucose (65-110) mg/dL Total Bilirubin (0.2-1.3) mg/dL AST (14-36) U/L Total Creatine Kinase (30-135) U/L C-Reactive Protein (<1.0) mg/dL Urine Appearance Cloudy H (Clear) Urine Protein 2+ H (Negative) mg/dL Urine Ketones 3+ H (Negative) mg/dL Ur Blood (Man) 2+ H (Negative) Urine Nitrate Positive H (Negative) Urine Bilirubin 1+ H (Negative) Leukocyte Esterase Rfl Trace H (Negative) LYRIC/UL Urine RBC 3-5 H (0-2) /hpf Urine WBC 11-20 H (0-3) /hpf Urine Bacteria 4+ H /hpf Synovial Appearance (Clear) Synovial RBC (0-0) /uL Synovial Nuc Cells (0-200) /uL Synovial Neutrophils (0-25) % H & H 03/05/21 Range/Units 12:45 Hgb 13.8 (12.0-15.0) g/dL Hct 41.9 (37.0-47.0) % All other labs normal.
[2024-04-30 07:28] LABS: Alanine Aminotransferase 30 U/L (6-35); Albumin Level 3.2 g/dL (3.5-5.1); Alkaline Phosphatase 73 U/L (38-126); Anion Gap 9 mmol/L (4-12); Aspartate Amino Transferase 53 U/L (14-36); Blood Urea Nitrogen 14 mg/dL (7-17); Calcium 7.9 mg/dL (8.4-10.2); Carbon Dioxide 21 mmol/L (22-30); Chloride 109 mmol/L (98-107); Creatine Kinase 634 U/L (30-135); Estimated CRCL calculation 44 ml/min; Estimated Glomerular Filt Rate > 60; Glucose 112 mg/dL (65-110); Potassium 3.7 mmol/L (3.4-5.0); Sodium 139 mmol/L (137-145); Uric Acid 3.8 mg/dL (2.5-7.5)
[2024-04-30 08:26] LABS: Thyroid Stimulating Hormone Reflex 0.555 uIU/mL (0.465-4.68)
[2024-04-30] MEDS: FAMOTIDINE 20 MG TABLET PO ×2 (08:47→21:44)
[2024-04-30] MEDS: HYDROcodone/acetaminophen (*CRX) 5-325 MG TABLET 1 TAB PO ×2 (08:53→15:42)
[2024-04-30 14:00] VITALS: BP 130/75; PULSE 86; RESP 18; TEMP 36.3; O2SAT 100
[2024-04-30 15:20] VITALS: BMI 10.0
[2024-04-30] MEDS: VANCOMYCIN 1,500 MG/NS 500 ML 1,500 MG/500 ML BAG 250 MG IVPB (21:43)
[2024-04-30] MEDS: ENOXAPARIN 40 MG/0.4 ML SYRINGE SUB-Q (21:44)
[2024-04-30 22:00] VITALS: BP 130/70; PULSE 81; RESP 18; TEMP 36.9; O2SAT 95
[2024-05-01] MEDS: SODIUM CHLORIDE 0.9% IV 1,000 ML 70 ML IV CONT (05:30)
[2024-05-01] MEDS: LEVOTHYROXINE SODIUM 50 MCG TABLET PO (05:37)
[2024-05-01 05:44] VITALS: BP 150/87; PULSE 76; RESP 18; TEMP 37.5; O2SAT 95
[2024-05-01 06:29] LABS: Hematocrit 32.8 % (37.0-47.0); Hemoglobin 10.6 g/dL (12.0-15.0); Mean Corpuscular HGB Conc 32.3 g/dl (32-36); Mean Corpuscular Hemoglobin 32.5 pg (26-34); Mean Corpuscular Volume 100.6 fl (80-100); Mean Platelet Volume 8.9 fl (7.4-10.4); Platelet Count Result 249 k/mm3 (150-375); Red Blood Count 3.26 M/mm3 (4.2-5.4); Red Cell Distribution Width 12.1 % (11.5-14.5); White Blood Count 6.2 K/mm3 (4.5-10.0)
--- NOTE | 2024-05-01 06:46 | P.PNOP_ITS ---
Progress Note: A&P Assessment and Plan (1) Knee pain, right: Code(s): M25.561 - Pain in right knee Status: Acute Assessment and Plan: White blood cells noted. No bacteria. Following. Subjective Subjective Date/Time Seen: 05/01/24 06:46 Post Op day: 2 Principal diagnosis: Knee pain. R/O sepsis Review of Systems Musculoskeletal: Musculoskeletal: Reports arthralgias, Reports joint swelling and Reports stiffness Neurologic: Reports abnormal gait Exam Narrative: Pain with any motion. Wiggles toes. Objective Data Vital Signs Vital Signs: Vital Signs - 24 hr 04/30/24 08:00 04/30/24 14:00 04/30/24 20:00 Temperature 97.4 F L Pulse Rate 86 Respiratory Rate 18 Blood Pressure 130/75 Pulse Oximetry 100 Oxygen Delivery Room Air Room Air 04/30/24 22:00 05/01/24 05:44 Temperature 98.5 F 99.5 F Pulse Rate 81 76 Respiratory Rate 18 18 Blood Pressure 130/70 150/87 H Pulse Oximetry 95 95 Oxygen Delivery Intake/Output Intake/Output: Intake & Output 04/28/24 04/29/24 04/30/24 05/01/24 23:59 23:59 23:59 23:59 Intake Total 1050 4910 100 Output Total 75 300 Balance 975 4610 100 Meds/Results Medications: Active Medications Generic Name Dose Route Start Last Admin Trade Name Freq PRN Reason Stop Dose Admin Acetaminophen 650 mg 04/29/24 18:53 04/29/24 19:35 Acetaminophen 325 Mg Tablet PO 650 mg Q4H PRN Administration Mild Pain (1-3) or Fever Hydrocodone Bitart/Acetaminophen 1 tab 04/29/24 18:53 04/30/24 15:42 Hydrocodone/Acetaminophen (*Crx) 5-325 Mg Tablet PO 1 tab Q4H PRN Administration Pain Rated 4-10 Enoxaparin Sodium 40 mg 05/01/24 18:00 Enoxaparin 40 Mg/0.4 Ml Syringe SUB-Q QPM MANJU Famotidine 20 mg 04/30/24 09:00 04/30/24 21:44 Famotidine 20 Mg Tablet PO 20 mg Q12HR MANJU Administration Ceftriaxone Sodium 1 gm in 50 mls @ 100 mls/hr 04/30/24 12:00 04/30/24 12:54 Rocephin 1 Gm/Ns 50 Ml IVPB 100 mls/hr Q24H MANJU Administration Sodium Chloride 1,000 mls @ 70 mls/hr 04/29/24 18:55 05/01/24 05:30 Normal Saline Iv IV CONT 70 mls/hr .[id number] MANJU Administration Vancomycin HCl 750 mg in 250 mls @ 250 mls/hr 05/01/24 22:00 Vancomycin 750 Mg/Ns 250 Ml IVPB Q24H MANJU Levothyroxine Sodium 50 mcg 04/30/24 06:30 05/01/24 05:37 Levothyroxine Sodium 50 Mcg Tablet PO 50 mcg DAILY@0630 MANJU Administration Ondansetron HCl 4 mg 04/29/24 18:53 Ondansetron Inj 4 Mg/2 Ml Vial IV PUSH Q4H PRN Nausea Radiology Results: ITS Impressions Chest X-Ray 04/29/24 13:07 IMPRESSION: No acute cardiopulmonary pathology. Hip/Pelvis X-Ray 04/29/24 14:13 IMPRESSION: 1. Mild osteoarthritis of the hips. Knee X-Ray 04/29/24 14:15 IMPRESSION: No acute osseous abnormality right knee. Chondrocalcinosis. Mild to moderate osteoarthritic changes. Ankle X-Ray 04/30/24 20:28 IMPRESSION: Degenerative disease and diffuse bony demineralization without acu te fracture. Labs Labs: Laboratory Results - last 24 hr 04/30/24 05/01/24 06:42 05:54 WBC 7.2 6.2 RBC 3.62 L 3.26 L Hgb 11.9 L 10.6 L Hct 36.4 L 32.8 L MCV 100.6 H 100.6 H MCH 32.9 32.5 MCHC 32.7 32.3 RDW 12.1 12.1 Plt Count 254 249 MPV 8.8 8.9 Immature Gran % (Auto) 0.3 Neut % (Auto) 80.4 H Lymph % (Auto) 9.5 L [place] % (Auto) 9.1 H Eos % (Auto) 0.3 Baso % (Auto) 0.4 Lymph # (Auto) 0.68 L [place] # (Auto) 0.7 H Eos # (Auto) 0.0 Baso # (Auto) 0.0 Abs Immat Gran (auto) 0.02 Absolute Neuts (auto) 5.8 Absolute Nucleated RBC 0.000 Nucleated RBC % 0.0 Sodium 139 Potassium 3.7 Chloride 109 H Carbon Dioxide 21 L Anion Gap 9 BUN 14 D Creatinine 0.60 L Estim Creat Clear Calc 44 Estimated GFR > 60 Glucose 112 H Uric Acid 3.8 Calcium 7.9 L Total Bilirubin 1.0 AST 53 H ALT 30 Alkaline Phosphatase 73 Total Creatine Kinase 634 H Total Protein 7.0 Albumin 3.2 L TSH (Reflex) 0.555
[2024-05-01 06:51] LABS: Anion Gap 7 mmol/L (4-12); Blood Urea Nitrogen 10 mg/dL (7-17); Calcium 7.6 mg/dL (8.4-10.2); Carbon Dioxide 23 mmol/L (22-30); Chloride 107 mmol/L (98-107); Estimated CRCL calculation 46 ml/min; Estimated Glomerular Filt Rate > 60; Glucose 108 mg/dL (65-110); Potassium 3.8 mmol/L (3.4-5.0); Sodium 137 mmol/L (137-145)
[2024-05-01 07:02] LABS: CRP 22.6 mg/dL (<1.0)
[2024-05-01 07:15] LABS: Vitamin B12 > 1000.0 pg/mL (239-931)
[2024-05-01 08:27] LABS: Folic Acid 15.4 ng/mL (2.76->20)
[2024-05-01] MEDS: HYDROcodone/acetaminophen (*CRX) 5-325 MG TABLET 1 TAB PO ×2 (09:26→13:47)
[2024-05-01] MEDS: FAMOTIDINE 20 MG TABLET PO ×2 (09:27→21:16)
--- NOTE | 2024-05-01 10:29 | P.PNIM_ITS ---
Progress Note: A&P Assessment and Plan (1) Osteoporosis: Code(s): M81.0 - Age-related osteoporosis without current pathological fracture Status: Acute (2) Abnormal urinalysis: Code(s): R82.90 - Unspecified abnormal findings in urine Status: Acute (3) Acute UTI: Code(s): N39.0 - Urinary tract infection, site not specified Status: Acute (4) Sepsis: Qualifiers: Sepsis acute organ dysfunction status: without acute organ dysfunction Sepsis type: sepsis due to unspecified organism Qualified Code(s): A41.9 - Sepsis, unspecified organism Code(s): A41.9 - Sepsis, unspecified organism Status: Acute Plan (1) Rhabdomyolysis: Qualifiers: Rhabdomyolysis type: non-traumatic Qualified Code(s): M62.82 - Rhabdomyolysis Code(s): M62.82 - Rhabdomyolysis Status: Acute Assessment and Plan: Patient with diffuse lower extremity bilateral pain. She was found to have a right knee effusion which was tapped. She denies back pain. She has low-grade fever and was mildly tachycardic but no elevated white count. Total CK is 1052 consistent with mild rhabdomyolysis. Repeat level trending downward. dc IV fluid today 3/5 Start PT OT. (2) Acute knee pain: Qualifiers: Laterality: right Qualified Code(s): M25.561 - Pain in right knee Code(s): M25.569 - Pain in unspecified knee Status: Acute Assessment and Plan: Patient with right knee pain with imaging showing effusion. She had 5000 red cells and 15,000 white cells that were 88% neutrophils. No crystals. Gram stain showing many WBC but no MO. She is with diffuse LE symptoms but doubt disseminated gonococcal WBC <20K and no trauma so will add Vanco for MRSA coverage. Ortho consulted and appreciate their input. Narrow abx when able. Follow up on culture results. Orthopedic surgeon plans arthroscopic I & D tomorrow. (3) Acute UTI: Code(s): N39.0 - Urinary tract infection, site not specified Status: Acute Assessment and Plan: UA is consistent with UTI. UCx collected. Rocephin started. UCx growing EColi. Follow up on UCx results. (4) Effusion of right knee: Code(s): M25.461 - Effusion, right knee Status: Acute Assessment and Plan: As above sepsis Fever: Qualifiers: Fever type: due to other condition Qualified Code(s): R50.81 - Fever presenting with conditions classified elsewhere Code(s): R50.9 - Fever, unspecified Status: Acute Assessment and Plan: Related to above. Plan Hypothyroidism - TSH Normal. Macrocytosis - Check b12/folate Code status - full DVT prophylaxis - Lovenox Subjective Date/time seen: 05/01/24 10:29 Interval history: I saw exam patient today, patient still has right knee pain worse with movement, no focal weakness. Feel weak, denies chest pain, shortness of breath Patient has low-grade fever 99.5 over the night lab showed no leukocytosis, hemoglobin 10.6 stable, chemistry unremarkable, CRP 22.6 Exam Narrative: GENERAL: Pleasant, in no acute distress. Well-nourished. - EYES: EOMI. Anicteric. - HENT: Moist mucous membranes. - LUNGS: Clear to auscultation bilateral ly, no wheezing, rhonchi, or rales. - CARDIOVASCULAR: Regular rate and rhyth m. No murmur. No JVD. - ABDOMEN: Soft, non-tender and non-dist ended. No palpable masses. - EXTREMITIES: Pain with passive ROM t o the lower extremities. Bilateral knee pain with passive movement. - NEUROLOGIC: No focal neurological defi cits. CN II-XII grossly intact. - PSYCHIATRIC: Awake, Alert and oriented x 3. Appropriate mood and affect. - SKIN: No rashes or lesions. Warm. - LYMPH: No cervical lymphadenopathy. Objective Data Vital Signs Vital Signs: Vital Signs - 24 hr 04/30/24 14:00 04/30/24 20:00 04/30/24 22:00 Temperature 97.4 F L 98.5 F Pulse Rate 86 81 Respiratory Rate 18 18 Blood Pressure 130/75 130/70 Pulse Oximetry 100 95 Oxygen Delivery Room Air 05/01/24 05:44 Temperature 99.5 F Pulse Rate 76 Respiratory Rate 18 Blood Pressure 150/87 H Pulse Oximetry 95 Oxygen Delivery Intake/Output Intake/Output: Intake & Output 04/28/24 04/29/24 04/30/24 05/01/24 23:59 23:59 23:59 23:59 Intake Total 1050 4910 340 Output Total 75 300 Balance 975 4610 340 Meds/Results Medications: Active Medications Generic Name Dose Route Start Last Admin Trade Name Freq PRN Reason Stop Dose Admin Acetaminophen 650 mg 04/29/24 18:53 04/29/24 19:35 Acetaminophen 325 Mg Tablet PO 650 mg Q4H PRN Administration Mild Pain (1-3) or Fever Hydrocodone Bitart/Acetaminophen 1 tab 04/29/24 18:53 05/01/24 09:26 Hydrocodone/Acetaminophen (*Crx) 5-325 Mg Tablet PO 1 tab Q4H PRN Administration Pain Rated 4-10 Enoxaparin Sodium 40 mg 05/01/24 18:00 Enoxaparin 40 Mg/0.4 Ml Syringe SUB-Q QPM MANJU Famotidine 20 mg 04/30/24 09:00 05/01/24 09:27 Famotidine 20 Mg Tablet PO 20 mg Q12HR MANJU Administration Ceftriaxone Sodium 1 gm in 50 mls @ 100 mls/hr 04/30/24 12:00 04/30/24 12:54 Rocephin 1 Gm/Ns 50 Ml IVPB 100 mls/hr Q24H MANJU Administration Sodium Chloride 1,000 mls @ 70 mls/hr 04/29/24 18:55 05/01/24 05:30 Normal Saline Iv IV CONT 70 mls/hr .[id number] MANJU Administration Vancomycin HCl 750 mg in 250 mls @ 250 mls/hr 05/01/24 22:00 Vancomycin 750 Mg/Ns 250 Ml IVPB Q24H MANJU Levothyroxine Sodium 50 mcg 04/30/24 06:30 05/01/24 05:37 Levothyroxine Sodium 50 Mcg Tablet PO 50 mcg DAILY@0630 MANJU Administration Ondansetron HCl 4 mg 04/29/24 18:53 Ondansetron Inj 4 Mg/2 Ml Vial IV PUSH Q4H PRN Nausea Radiology Results: ITS Impressions Chest X-Ray 04/29/24 13:07 IMPRESSION: No acute cardiopulmonary pathology. Hip/Pelvis X-Ray 04/29/24 14:13 IMPRESSION: 1. Mild osteoarthritis of the hips. Knee X-Ray 04/29/24 14:15 IMPRESSION: No acute osseous abnormality right knee. Chondrocalcinosis. Mild to moderate osteoarthritic changes. Ankle X-Ray 04/30/24 20:28 IMPRESSION: Degenerative disease and diffuse bony demineralization without acute fracture. Labs Labs: Laboratory Results - last 24 hr 05/01/24 05:54 WBC 6.2 RBC 3.26 L Hgb 10.6 L Hct 32.8 L MCV 100.6 H MCH 32.5 MCHC 32.3 RDW 12.1 Plt Count 249 MPV 8.9 Sodium 137 Potassium 3.8 Chloride 107 Carbon Dioxide 23 Anion Gap 7 BUN 10 Creatinine 0.58 L Estim Creat Clear Calc 46 Estimated GFR > 60 Glucose 108 Calcium 7.6 L C-Reactive Protein 22.6 H Vitamin B12 > 1000.0 H Folate 15.4
[2024-05-01 13:38] VITALS: BP 129/57; PULSE 73; RESP 16; TEMP 36.3; O2SAT 97
[2024-05-01] MEDS: ENOXAPARIN 40 MG/0.4 ML SYRINGE SUB-Q (17:52)
[2024-05-01 20:02] VITALS: BP 142/74; PULSE 64; RESP 16; TEMP 36.8; O2SAT 99
[2024-05-01] MEDS: VANCOMYCIN 750 MG/NS 250 ML 750 MG/250 ML BAG 250 MG IVPB (21:58)
[2024-05-02] VITALS (13 sets, daily range): BP systolic 134–202; BP diastolic 66–98; PULSE 64–96; RESP 10–16; TEMP 36.1–36.9; O2SAT 95–100
[2024-05-02] MEDS: SODIUM CHLORIDE 0.9% IV 1,000 ML 70 ML IV CONT (05:58)
[2024-05-02 08:02] LABS: Estimated CRCL calculation 52 ml/min; Estimated Glomerular Filt Rate > 60
--- NOTE | 2024-05-02 08:51 | PC.NURSE ---
To pre-op per [bed] at 0820. IV [22 g R FA]. Report given to [Nagi].
--- NOTE | 2024-05-02 09:13 | PCPTNOTE ---
The patient treatment was not able to be completed at this time due to patient out of room for arthroscopic washout of the R knee. Will plan to continue treatment per plan of care.
--- NOTE | 2024-05-02 09:16 | P.PNIM_ITS ---
Progress Note: A&P Assessment and Plan (1) Osteoporosis: Code(s): M81.0 - Age-related osteoporosis without current pathological fracture Status: Acute (2) Abnormal urinalysis: Code(s): R82.90 - Unspecified abnormal findings in urine Status: Acute (3) Acute UTI: Code(s): N39.0 - Urinary tract infection, site not specified Status: Acute (4) Sepsis: Qualifiers: Sepsis acute organ dysfunction status: without acute organ dysfunction Sepsis type: sepsis due to unspecified organism Qualified Code(s): A41.9 - Sepsis, unspecified organism Code(s): A41.9 - Sepsis, unspecified organism Status: Acute Plan (1) Rhabdomyolysis: Qualifiers: Rhabdomyolysis type: non-traumatic Qualified Code(s): M62.82 - Rhabdomyolysis Code(s): M62.82 - Rhabdomyolysis Status: Acute Assessment and Plan: Patient with diffuse lower extremity bilateral pain. She was found to have a right knee effusion which was tapped. She denies back pain. She has low-grade fever and was mildly tachycardic but no elevated white count. Total CK is 1052 consistent with mild rhabdomyolysis. Repeat level trending downward. dc IV fluid today 3/5 Start PT OT. (2) Acute knee pain: Qualifiers: Laterality: right Qualified Code(s): M25.561 - Pain in right knee Code(s): M25.569 - Pain in unspecified knee Status: Acute Assessment and Plan: Patient with right knee pain with imaging showing effusion. She had 5000 red cells and 15,000 white cells that were 88% neutrophils. No crystals. Gram stain showing many WBC but no MO. She is with diffuse LE symptoms but doubt disseminated gonococcal WBC <20K and no trauma so will add Vanco for MRSA coverage. Ortho consulted and appreciate their input. Narrow abx when able. Follow up on culture results. Orthopedic surgeon perform arthroscopic today (3) Acute UTI: Code(s): N39.0 - Urinary tract infection, site not specified Status: Acute Assessment and Plan: UA is consistent with UTI. UCx collected. Rocephin started. UCx growing EColi. Follow up on UCx results. Will change to oral antibiotics tomorrow per ID pharmacist recommendation (4) Effusion of right knee: Code(s): M25.461 - Effusion, right knee Status: Acute Assessment and Plan: As above sepsis Fever: Qualifiers: Fever type: due to other condition Qualified Code(s): R50.81 - Fever presenting with conditions classified elsewhere Code(s): R50.9 - Fever, unspecified Status: Acute Assessment and Plan: Related to above. Plan Hypothyroidism - TSH Normal. Macrocytosis - Check b12/folate Code status - full DVT prophylaxis - Lovenox Subjective Date/time seen: 05/02/24 09:16 Interval history: I saw exam patient today, patient is somnolent, patient underwent arthroscope today. Denies knee pain pain, chest pain abdomen pain nausea vomiting Patient afebrile blood pressure stable Exam Narrative: GENERAL: Pleasant, in no acute distress. Well-nourished. - EYES: EOMI. Anicteric. - HENT: Moist mucous membranes. - LUNGS: Clear to auscultation bilateral ly, no wheezing, rhonchi, or rales. - CARDIOVASCULAR: Regular rate and rhyth m. No murmur. No JVD. - ABDOMEN: Soft, non-tender and non-dist ended. No palpable masses. - EXTREMITIES: Pain with passive ROM t o the lower extremities. Bilateral knee pain with passive movement. - NEUROLOGIC: No focal neurological defi cits. CN II-XII grossly intact. - PSYCHIATRIC: Awake, Alert and oriented x 3. Appropriate mood and affect. - SKIN: No rashes or lesions. Warm. - LYMPH: No cervical lymphadenopathy. Objective Data Vital Signs Vital Signs: Vital Signs - 24 hr 05/01/24 13:38 05/01/24 14:15 05/01/24 20:02 Temperature 97.4 F L 98.2 F Pulse Rate 73 64 Respiratory Rate 16 16 Blood Pressure 129/57 L 142/74 H Pulse Oximetry 97 99 Oxygen Delivery Room Air 05/02/24 05:49 05/02/24 08:00 Temperature 97.5 F L Pulse Rate 76 Respiratory Rate 16 Blood Pressure 134/98 H Pulse Oximetry 97 Oxygen Delivery Room Air Intake/Output Intake/Output: Intake & Output 04/29/24 04/30/24 05/01/24 05/02/24 23:59 23:59 23:59 23:59 Intake Total 1050 4960 2060 Output Total 75 300 350 675 Balance 975 6360 1710 -675 Meds/Results Medications: Active Medications Generic Name Dose Route Start Last Admin Trade Name Freq PRN Reason Stop Dose Admin Acetaminophen 650 mg 04/29/24 18:53 04/29/24 19:35 Acetaminophen 325 Mg Tablet PO 650 mg Q4H PRN Administration Mild Pain (1-3) or Fever Hydrocodone Bitart/Acetaminophen 1 tab 04/29/24 18:53 05/01/24 13:47 Hydrocodone/Acetaminophen (*Crx) 5-325 Mg Tablet PO 1 tab Q4H PRN Administration Pain Rated 4-10 Enoxaparin Sodium 40 mg 05/01/24 18:00 05/01/24 17:52 Enoxaparin 40 Mg/0.4 Ml Syringe SUB-Q 40 mg QPM MANJU Administration Famotidine 20 mg 04/30/24 09:00 05/02/24 08:17 Famotidine 20 Mg Tablet PO Not Given Q12HR MANJU Ceftriaxone Sodium 1 gm in 50 mls @ 100 mls/hr 04/30/24 12:00 05/01/24 12:42 Rocephin 1 Gm/Ns 50 Ml IVPB 100 mls/hr Q24H MANJU Administration Sodium Chloride 1,000 mls @ 70 mls/hr 04/29/24 18:55 05/02/24 05:58 Normal Saline Iv IV CONT 70 mls/hr .[id number] MANJU Administration Vancomycin HCl 750 mg in 250 mls @ 250 mls/hr 05/01/24 22:00 05/01/24 21:58 Vancomycin 750 Mg/Ns 250 Ml IVPB 250 mls/hr Q24H MANJU Administration Levothyroxine Sodium 50 mcg 04/30/24 06:30 05/02/24 05:59 Levothyroxine Sodium 50 Mcg Tablet PO Not Given DAILY@0630 MANJU Ondansetron HCl 4 mg 04/29/24 18:53 Ondansetron Inj 4 Mg/2 Ml Vial IV PUSH Q4H PRN Nausea Radiology Results: ITS Impressions Chest X-Ray 04/29/24 13:07 IMPRESSION: No acute cardiopulmonary pathology. Hip/Pelvis X-Ray 04/29/24 14:13 IMPRESSION: 1. Mild osteoarthritis of the hips. Knee X-Ray 04/29/24 14:15 IMPRESSION: No acute osseous abnormality right knee. Chondrocalcinosis. Mild to moderate osteoarthritic changes. Ankle X-Ray 04/30/24 20:28 IMPRESSION: Degenerative disease and diffuse bony demineralization without acute fracture. Knee MRI 05/01/24 12:59 IMPRESSION: 1. Complex lateral meniscal tear with macerated appearance of the meniscal body and no discernible anterior horn suggesting significant secondary displacement or degeneration of the meniscal tissue. 2. 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 3. Scarring consistent with chronic sprain of the proximal fibular collateral ligament. 4. Mild tendinopathy without tears at the quadriceps and popliteal tendons. 5. Likely reactive moderate sized right knee joint effusion. Labs Labs: Laboratory Results - last 24 hr 05/02/24 07:28 Creatinine 0.50 L Estim Creat Clear Calc 52 Estimated GFR > 60
--- NOTE | 2024-05-02 09:53 | P.PNAN_ITS ---
Anes - Initial Pre Proc Eval Procedure: Operation Date: 05/02/24 10:00 Proposed Procedures p Arthroscopic Washout Right Knee - John Flores MD Date/Time: 05/02/24 09:53 Surgeon: Sam Jaquez MD Pre Op Diagnosis: Rhabdomyolysis, UTI, Knee pain Patient Data Age: 88 Gender: F Height: 1.57 m Weight: 56.2 kg Last Vital Signs Temp 36.9 C 05/02/24 09:14 Pulse 67 05/02/24 09:14 Resp 14 05/02/24 09:14 BP 182/70 H 05/02/24 09:14 Pulse Ox 99 05/02/24 09:14 O2 Del Method Room Air 05/02/24 09:14 Allergies Allergy/AdvReac Type Severity Reaction Status Date / Time No Known Allergies Allergy Mild Verified 05/02/24 09:24 Home Medications ?Medication ?Instructions ?Recorded ?Confirmed ?Type ibandronate 150 mg tablet 150 mg PO MONTHLY 04/29/24 04/29/24 History levothyroxine 50 mcg tablet 50 mcg PO DAILY 04/29/24 04/29/24 History Laboratory Tests 05/02/24 07:28 Creatinine 0.50 L mg/dL (0.7-1.0) Estim Creat Clear Calc 52 ml/min Estimated GFR > 60 (59 - ) Patient hx anesthesia problems: none Family hx anesthesia problems: none Results Review: All pre-operative results and documents have been reviewed as part of the pre- operative evaluation. 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 The patient had delayed follow-up and initially had refused lumpectomy but eventually underwent lumpectomy. She did not receive chemotherapy or radiation therapy. Atopic dermatitis Surgical History Surgical History Status post left breast lumpectomy History of breast biopsy Family History Family History Mother Family history of arthritis Sibling Family history of diabetes mellitus in first degree relative Social History Social History Social History: She lives with her they were in 1968. She raised 4 children. She used to occasionally drink alcohol in moderation but has not done so in many years. She smoked 1 pack of cigarettes per day for about 25 years but quit at age 43. She denies illicit substance use. 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: Full code Surrogate decision maker: Smoking packs per day: 1 Smoking cigarettes per day: 20.0 Years smoked: 25 Smoking pack-years: 25.00 Smoking status: Former smoker Second hand tobacco smoke exposure: No Smoking end date: 02/28/96 Alcohol intake: former Substance use: never Do You Feel Safe in your Home?: Yes Lack of Transportation: No Lack of Food: Never True Current Housing: I Have Housing Concerned About Future Housing: No Difficulty Paying Gas/Electric Bills: No Difficulty Paying for Meds: No Currently Unemployed: No Education: Decline to Answer Difficulty w/ Childcare or Family Care: No Spiritual care concerns: No Anes - Eval Final PreProcedure Day of Procedure 05/02/24 09:53 Patient weight: normal Lungs: clear to auscultation Airway: Mallampati scale class 1 and special considerations poor dentition (several missing teeth upper and lower. Patient states nothing is loose. ) Neurological: alert and oriented Last oral intake: >/= 8 hours ASA classification: II Emergent: no Anesthetic plan: proceed Anesthesia type and monitoring: general LMA and standard monitoring Results Review: All pre-operative results and documents have been reviewed as part of the pre- operative evaluation. Informed Consent: The patient's anesthetic plan and its attendant risks and benefits were discus sed with the patient/family/POA. Questions were solicited and answers provided to the satisfaction of the patient/family/POA.
[2024-05-02] MEDS: LACTATED RINGERS 1,000 ML 30 ML IV CONT (10:00)
--- NOTE | 2024-05-02 10:01 | WPDHPUPDATE1 ---
History and Physical Update Update Date/Time: 05/02/24 10:01 History and Physical has been reviewed, including an updated exam of the patient. There are NO changes in the patient's condition. Risks, benefits, and alternatives have been discussed and questions answered. Patient agrees to proceed with procedure.
[2024-05-02 10:55] LABS: Glucose Synovial Fluid 102 mg/dL; Total Protein Synovial Fluid 2.8 g/dL (1.0-3.0)
--- NOTE | 2024-05-02 11:12 | W.PM.PROC2 ---
Procedure Note - Detailed Date of Procedure 05/02/24 Pre-op Diagnosis Lateral meniscal tear right knee. Post-op Diagnosis Same Procedure Performed Arthroscopy, partial meniscectomy, and debridement RIGHT knee Surgeon John Flores MD Anesthesia General Description of Procedure Patient brought to operating room #3. A general anesthetic was administered. She was sterilely prepped and draped in usual manner. Superomedial portal used with the outflow cannula inferolateral portal for the scope inferomedial port for the instruments diagnostic arthroscopy performed patellofemoral joint showed grade 3 changes she had a lot of synovitis in the knee medial compartment showed fraying. Lateral compartment showed a complex tear with the grade 3 and grade 4 changes. Using baskets and Hugo the meniscal tear was trimmed back to a stable base the chin nothing further could be pulled in the joint any loose delaminated fragments of chondromalacia was gently trimmed as well. At this point the instruments removed 3 sutures placed lidocaine injected patient tolerated procedure well left the operating room satisfactory condition. Urine Output 675 Complications No immediate complications Condition Stable Disposition PACU [facility] Billing Surgery - Charge Forward: Surgery Billing ([id number] Arthroscopy, partial menisectomy)
[2024-05-02] MEDS: hydrALAZINE HCL 20 MG/ML VIAL 10 MG IV PUSH (11:36)
[2024-05-02] MEDS: ONDANSETRON INJ 4 MG/2 ML VIAL IV PUSH (11:42)
--- NOTE | 2024-05-02 11:51 | PC.NURSE ---
Surgery director recovered a [employer] card during patient surgery with around $300. Card and money given to patient's .
--- NOTE | 2024-05-02 12:14 | PC.NURSE ---
Returned from OR per [bed].
--- NOTE | 2024-05-02 12:25 | PCOTNOTE ---
Patient had a procedure performed this A.M. Patient just returned to the room recently and feeling drowsy. Therapy services will try back tomorrow
[2024-05-02] MEDS: HYDROcodone/acetaminophen (*CRX) 5-325 MG TABLET 1 TAB PO (13:35)
--- NOTE | 2024-05-02 14:14 | PC.NURSE ---
Prior to be taken to pre-op for surgery, patient was very untrustful of this RN and refusing care. Patient refusing surgery unless she could talk to the surgeon. This RN called pre-op and spoke to Nagi about patient wanting to speak to surgeon and patient refusing care from this RN at this time. Patient was assured surgeon will speak to her down in pre-op prior to surgery. At this point, patient crying in bed and calling for who was not present in the room. This RN offered to call but patient stated I do not trust you, do not call him.
[2024-05-02] MEDS: FAMOTIDINE 20 MG TABLET PO (21:31)
[2024-05-03 01:02] VITALS: BP 159/69; RESP 18; TEMP 36.4
[2024-05-03 06:02] VITALS: BP 167/81; PULSE 76; RESP 18; TEMP 36.3; O2SAT 100
--- NOTE | 2024-05-03 08:09 | PM.PNORT ---
Progress Note: A&P Assessment and Plan (1) Effusion of right knee: Code(s): M25.461 - Effusion, right knee Status: Acute Assessment and Plan: S/P knee scope. Up today. Therapy to see Subjective Subjective Date/Time Seen: 05/03/24 08:09 Post Op day: 1 Principal diagnosis: Meniscal tear, I & D Review of Systems Musculoskeletal: Musculoskeletal: Reports arthralgias, Reports joint swelling and Reports stiffness Neurologic: Reports abnormal gait Exam Narrative: wiggles toes pain with motion Objective Data Vital Signs Vital Signs: Vital Signs - 24 hr 05/02/24 09:14 05/02/24 11:00 05/02/24 11:15 Temperature 98.5 F 98.5 F Pulse Rate 67 76 74 Respiratory Rate 14 10 L 14 Blood Pressure 182/70 H 146/76 H 178/72 H Pulse Oximetry 99 98 100 Oxygen Delivery Room Air Simple Face Mask Simple Face Mask Oxygen Flow Rate 6 6 05/02/24 11:20 05/02/24 11:30 05/02/24 11:45 Temperature Pulse Rate 74 84 Respiratory Rate 14 16 Blood Pressure 190/98 H 202/92 H Pulse Oximetry 100 100 Oxygen Delivery Room Air Room Air Room Air Oxygen Flow Rate 05/02/24 12:00 05/02/24 12:15 05/02/24 12:30 Temperature 97.1 F L 97.4 F L Pulse Rate 74 84 85 Respiratory Rate 16 16 16 Blood Pressure 163/72 H 144/66 H 140/78 Pulse Oximetry 100 98 99 Oxygen Delivery Room Air Oxygen Flow Rate 05/02/24 13:00 05/02/24 13:52 05/02/24 20:56 Temperature 97.6 F 97.0 F L 98.0 F Pulse Rate 85 96 64 Respiratory Rate 16 16 16 Blood Pressure 155/72 H 138/70 151/71 H Pulse Oximetry 100 100 95 Oxygen Delivery Oxygen Flow Rate 05/02/24 21:44 05/03/24 01:02 05/03/24 06:02 Temperature 97.6 F 97.4 F L Pulse Rate 76 Respiratory Rate 18 18 Blood Pressure 159/69 H 167/81 H Pulse Oximetry 95 100 Oxygen Delivery Room Air Oxygen Flow Rate Intake/Output Intake/Output: Intake & Output 03/04/25 03/05/25 03/06/25 03/07/25 23:59 23:59 23:59 23:59 Intake Total 4960 2110 400 550 Output Total 601 771 1508 800 Balance 4660 9710 1600 -250 Meds/Results Medications: Active Medications Generic Name Dose Route Start Last Admin Trade Name Freq PRN Reason Stop Dose Admin Acetaminophen 650 mg 04/29/24 18:53 04/29/24 19:35 Acetaminophen 325 Mg Tablet PO 650 mg Q4H PRN Administration Mild Pain (1-3) or Fever Hydrocodone Bitart/Acetaminophen 1 tab 04/29/24 18:53 05/02/24 13:35 Hydrocodone/Acetaminophen (*Crx) 5-325 Mg Tablet PO 1 tab Q4H PRN Administration Pain Rated 4-10 Amoxicillin/Clavulanate Potassium 1 tablet 05/03/24 09:00 Amoxicillin/Clavulanate K 875-125 Mg Tab PO 05/05/24 21:01 Q12HR MANJU Enoxaparin Sodium 40 mg 05/01/24 18:00 05/02/24 16:59 Enoxaparin 40 Mg/0.4 Ml Syringe SUB-Q Not Given QPM MANJU Famotidine 20 mg 04/30/24 09:00 05/02/24 21:31 Famotidine 20 Mg Tablet PO 20 mg Q12HR MANJU Administration Levothyroxine Sodium 50 mcg 04/30/24 06:30 05/03/24 06:05 Levothyroxine Sodium 50 Mcg Tablet PO Not Given DAILY@0630 [facility] Ondansetron HCl 4 mg 04/29/24 18:53 Ondansetron Inj 4 Mg/2 Ml Vial IV PUSH Q4H PRN Nausea Radiology Results: ITS Impressions Chest X-Ray 04/29/24 13:07 IMPRESSION: No acute cardiopulmonary pathology. Hip/Pelvis X-Ray 04/29/24 14:13 IMPRESSION: 1. Mild osteoarthritis of the hips. Knee X-Ray 04/29/24 14:15 IMPRESSION: No acute osseous abnormality right knee. Chondrocalcinosis. Mild to moderate osteoarthritic changes. Ankle X-Ray 04/30/24 20:28 IMPRESSION: Degenerative disease and diffuse bony demineralization without acute fracture. Knee MRI 05/01/24 12:59 IMPRESSION: 1. Complex lateral meniscal tear with macerated appearance of the meniscal body and no discernible anterior horn suggesting significant secondary displacement or degeneration of the meniscal tissue. 2. 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 3. Scarring consistent with chronic sprain of the proximal fibular collateral ligament. 4. Mild tendinopathy without tears at the quadriceps and popliteal tendons. 5. Likely reactive moderate sized right knee joint effusion. Labs Labs: Laboratory Results - last 24 hr 04/29/24 14:58 Synovial Glucose 102 Synovial Total Protein 2.8
--- NOTE | 2024-05-03 08:50 | P.PNIM_ITS ---
Progress Note: A&P Assessment and Plan (1) Osteoporosis: Code(s): M81.0 - Age-related osteoporosis without current pathological fracture Status: Acute (2) Abnormal urinalysis: Code(s): R82.90 - Unspecified abnormal findings in urine Status: Acute (3) Acute UTI: Code(s): N39.0 - Urinary tract infection, site not specified Status: Acute (4) Sepsis: Qualifiers: Sepsis acute organ dysfunction status: without acute organ dysfunction Sepsis type: sepsis due to unspecified organism Qualified Code(s): A41.9 - Sepsis, unspecified organism Code(s): A41.9 - Sepsis, unspecified organism Status: Acute Plan (1) Rhabdomyolysis: Qualifiers: Rhabdomyolysis type: non-traumatic Qualified Code(s): M62.82 - Rhabdomyolysis Code(s): M62.82 - Rhabdomyolysis Status: Acute Assessment and Plan: Patient with diffuse lower extremity bilateral pain. She was found to have a right knee effusion which was tapped. She denies back pain. She has low-grade fever and was mildly tachycardic but no elevated white count. Total CK is 1052 consistent with mild rhabdomyolysis. Repeat level trending downward. dc IV fluid today 05/01 Start PT OT. (2) Acute knee pain: Qualifiers: Laterality: right Qualified Code(s): M25.561 - Pain in right knee Code(s): M25.569 - Pain in unspecified knee Status: Acute Assessment and Plan: Patient with right knee pain with imaging showing effusion. She had 5000 red cells and 15,000 white cells that were 88% neutrophils. No crystals. Gram stain showing many WBC but no MO. She is with diffuse LE symptoms but doubt disseminated gonococcal WBC <20K and no trauma so will add Vanco for MRSA coverage. Ortho consulted and appreciate their input. Follow up on culture results: No growth Orthopedic surgeon performed arthroscopic, patient found having Meniscal tear, I and D was performed on 05/03 Continue PT OT (3) Acute UTI: Code(s): N39.0 - Urinary tract infection, site not specified Status: Acute Assessment and Plan: UA is consistent with UTI. UCx collected. Rocephin started. UCx growing EColi. Follow up on UCx results. change to oral antibiotic Augmentin today till May 05 per ID pharmacist recommendation 3/7 (4) Effusion of right knee: Code(s): M25.461 - Effusion, right knee Status: Acute Assessment and Plan: As above sepsis Fever: Qualifiers: Fever type: due to other condition Qualified Code(s): R50.81 - Fever presenting with conditions classified elsewhere Code(s): R50.9 - Fever, unspecified Status: Acute Assessment and Plan: Related to above. Lightheadedness Blood pressure on the lower side today Start normal saline IV 100 mL/hour Order orthostatic test Plan Hypothyroidism - TSH Normal. Macrocytosis - Check b12/folate Code status - full DVT prophylaxis - Lovenox Consult PT OT, youth career specialist for evaluation and assisting placement Subjective Date/time seen: 05/03/24 08:50 Interval history: I saw exam patient in presents of patient's daughter today. Patient feels knee pain is tolerable, patient has intermittent lightheadedness. Patient has good appetite today, denies chest pain, focal weakness, palpitation abdomen pain nausea vomiting. Blood pressure low today. Not on blood pressure medication Exam Narrative: GENERAL: Pleasant, in no acute distress. Well-nourished. - EYES: EOMI. Anicteric. - HENT: Moist mucous membranes. - LUNGS: Clear to auscultation bilateral ly, no wheezing, rhonchi, or rales. - CARDIOVASCULAR: Regular rate and rhyth m. No murmur. No JVD. - ABDOMEN: Soft, non-tender and non-dist ended. No palpable masses. - EXTREMITIES: Pain with passive ROM t o the lower extremities. Bilateral knee pain with passive movement. Right knee surgical wound is well dressed, - NEUROLOGIC: No focal neurological defi cits. CN II-XII grossly intact. - PSYCHIATRIC: Awake, Alert and oriented x 3. Appropriate mood and affect. - SKIN: No rashes or lesions. Warm. - LYMPH: No cervical lymphadenopathy. Objective Data Vital Signs Vital Signs: Vital Signs - 24 hr 05/02/24 09:14 05/02/24 11:00 05/02/24 11:15 Temperature 98.5 F 98.5 F Pulse Rate 67 76 74 Respiratory Rate 14 10 L 14 Blood Pressure 182/70 H 146/76 H 178/72 H Pulse Oximetry 99 98 100 Oxygen Delivery Room Air Simple Face Mask Simple Face Mask Oxygen Flow Rate 6 6 05/02/24 11:20 05/02/24 11:30 05/02/24 11:45 Temperature Pulse Rate 74 84 Respiratory Rate 14 16 Blood Pressure 190/98 H 202/92 H Pulse Oximetry 100 100 Oxygen Delivery Room Air Room Air Room Air Oxygen Flow Rate 05/02/24 12:00 05/02/24 12:15 05/02/24 12:30 Temperature 97.1 F L 97.4 F L Pulse Rate 74 84 85 Respiratory Rate 16 16 16 Blood Pressure 163/72 H 144/66 H 140/78 Pulse Oximetry 100 98 99 Oxygen Delivery Room Air Oxygen Flow Rate 05/02/24 13:00 05/02/24 13:52 05/02/24 20:56 Temperature 97.6 F 97.0 F L 98.0 F Pulse Rate 85 96 64 Respiratory Rate 16 16 16 Blood Pressure 155/72 H 138/70 151/71 H Pulse Oximetry 100 100 95 Oxygen Delivery Oxygen Flow Rate 05/02/24 21:44 05/03/24 01:02 05/03/24 06:02 Temperature 97.6 F 97.4 F L Pulse Rate 76 Respiratory Rate 18 18 Blood Pressure 159/69 H 167/81 H Pulse Oximetry 95 100 Oxygen Delivery Room Air Oxygen Flow Rate Intake/Output Intake/Output: Intake & Output 04/30/24 05/01/24 05/02/24 05/03/24 23:59 23:59 23:59 23:59 Intake Total 4960 2110 400 550 Output Total 457 016 7061 800 Balance 4660 1760 -1600 -250 Meds/Results Medications: Active Medications Generic Name Dose Route Start Last Admin Trade Name Freq PRN Reason Stop Dose Admin Acetaminophen 650 mg 04/29/24 18:53 04/29/24 19:35 Acetaminophen 325 Mg Tablet PO 650 mg Q4H PRN Administration Mild Pain (1-3) or Fever Hydrocodone Bitart/Acetaminophen 1 tab 04/29/24 18:53 05/02/24 13:35 Hydrocodone/Acetaminophen (*Crx) 5-325 Mg Tablet PO 1 tab Q4H PRN Administration Pain Rated 4-10 Amoxicillin/Clavulanate Potassium 1 tablet 05/03/24 09:00 Amoxicillin/Clavulanate K 875-125 Mg Tab PO 05/05/24 21:01 Q12HR MANJU Enoxaparin Sodium 40 mg 05/01/24 18:00 05/02/24 16:59 Enoxaparin 40 Mg/0.4 Ml Syringe SUB-Q Not Given QPM MANJU Famotidine 20 mg 04/30/24 09:00 05/02/24 21:31 Famotidine 20 Mg Tablet PO 20 mg Q12HR MANJU Administration Levothyroxine Sodium 50 mcg 04/30/24 06:30 05/03/24 06:05 Levothyroxine Sodium 50 Mcg Tablet PO Not Given DAILY@0630 [facility] Ondansetron HCl 4 mg 04/29/24 18:53 Ondansetron Inj 4 Mg/2 Ml Vial IV PUSH Q4H PRN Nausea Radiology Results: ITS Impressions Chest X-Ray 04/29/24 13:07 IMPRESSION: No acute cardiopulmonary pathology. Hip/Pelvis X-Ray 04/29/24 14:13 IMPRESSION: 1. Mild osteoarthritis of the hips. Knee X-Ray 04/29/24 14:15 IMPRESSION: No acute osseous abnormality right knee. Chondrocalcinosis. Mild to moderate osteoarthritic changes. Ankle X-Ray 04/30/24 20:28 IMPRESSION: Degenerative disease and diffuse bony demineralization without acute fracture. Knee MRI 05/01/24 12:59 IMPRESSION: 1. Complex lateral meniscal tear with macerated appearance of the meniscal body and no discernible anterior horn suggesting significant secondary displacement or degeneration of the meniscal tissue. 2. 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 3. Scarring consistent with chronic sprain of the proximal fibular collateral ligament. 4. Mild tendinopathy without tears at the quadriceps and popliteal tendons. 5. Likely reactive moderate sized right knee joint effusion. Labs Labs: Laboratory Results - last 24 hr 04/29/24 14:58 Synovial Glucose 102 Synovial Total Protein 2.8
[2024-05-03] MEDS: FAMOTIDINE 20 MG TABLET PO ×2 (08:58→20:20)
[2024-05-03] MEDS: AMOXICILLIN/CLAVULANATE K 875-125 MG TAB 1 TABLET PO ×2 (08:58→20:19)
[2024-05-03] MEDS: ACETAMINOPHEN 325 MG TABLET 650 MG PO (08:58)
[2024-05-03 10:31] VITALS: BP 89/53; PULSE 80; RESP 18; TEMP 36.4; O2SAT 99
[2024-05-03 12:29] LABS: Basophils Percent Auto 0.2 % (0.2-1.2); Eosinophils Absolute Auto 0.1 K/mm3 (0-0.3); Eosinophils Percent Auto 0.7 % (0-4.4); Hematocrit 35.1 % (37.0-47.0); Hemoglobin 11.5 g/dL (12.0-15.0); Immature Granulocyte Absolute 0.04 K/mm3 (0.00-0.031); Immature Granulocyte Percent A 0.5 % (0-0.5); Lymphocytes Absolute Auto 1.01 K/mm3 (0.9-3.2); Lymphocytes Percent Auto 12.3 % (18.3-44.2); Mean Corpuscular HGB Conc 32.8 g/dl (32-36); Mean Corpuscular Hemoglobin 32.7 pg (26-34); Mean Corpuscular Volume 99.7 fl (80-100); Mean Platelet Volume 8.7 fl (7.4-10.4); Monocytes Absolute Auto 0.5 K/mm3 (0.1-0.6); Monocytes Percent Auto 6.6 % (2.6-8.5); Neutrophils Absolute Auto 6.5 K/mm3 (1.3-6.7); Neutrophils Percent Auto 79.7 % (45.5-73.1); Platelet Count Result 377 k/mm3 (150-375); Red Blood Count 3.52 M/mm3 (4.2-5.4); Red Cell Distribution Width 12.3 % (11.5-14.5); White Blood Count 8.2 K/mm3 (4.5-10.0)
[2024-05-03 12:41] LABS: Anion Gap 11 mmol/L (4-12); Blood Urea Nitrogen 16 mg/dL (7-17); Calcium 8.6 mg/dL (8.4-10.2); Carbon Dioxide 24 mmol/L (22-30); Chloride 107 mmol/L (98-107); Estimated CRCL calculation 29 ml/min; Estimated Glomerular Filt Rate 56; Glucose 126 mg/dL (65-110); Potassium 3.6 mmol/L (3.4-5.0); Sodium 142 mmol/L (137-145)
[2024-05-03 14:00] VITALS: BP 109/44; PULSE 81; RESP 18; TEMP 36.7; O2SAT 97
[2024-05-03] MEDS: ENOXAPARIN 40 MG/0.4 ML SYRINGE SUB-Q (17:35)
[2024-05-03 20:56] VITALS: BP 166/70; PULSE 74; RESP 16; TEMP 36.8; O2SAT 97
[2024-05-04 05:49] VITALS: BP 169/75; PULSE 73; RESP 16; TEMP 36.4; O2SAT 99
[2024-05-04] MEDS: LEVOTHYROXINE SODIUM 50 MCG TABLET PO (05:53)
[2024-05-04] MEDS: FAMOTIDINE 20 MG TABLET PO (08:43)
[2024-05-04] MEDS: AMOXICILLIN/CLAVULANATE K 875-125 MG TAB 1 TABLET PO (08:43)
--- NOTE | 2024-05-04 09:35 | P.PNIM_ITS ---
Progress Note: A&P Assessment and Plan (1) Osteoporosis: Code(s): M81.0 - Age-related osteoporosis without current pathological fracture Status: Acute (2) Abnormal urinalysis: Code(s): R82.90 - Unspecified abnormal findings in urine Status: Acute (3) Acute UTI: Code(s): N39.0 - Urinary tract infection, site not specified Status: Acute (4) Sepsis: Qualifiers: Sepsis acute organ dysfunction status: without acute organ dysfunction Sepsis type: sepsis due to unspecified organism Qualified Code(s): A41.9 - Sepsis, unspecified organism Code(s): A41.9 - Sepsis, unspecified organism Status: Acute Plan Rhabdomyolysis: Qualifiers: Rhabdomyolysis type: non-traumatic Qualified Code(s): M62.82 - Rhabdomyolysis Code(s): M62.82 - Rhabdomyolysis Status: Acute Assessment and Plan: Patient with diffuse lower extremity bilateral pain. She was found to have a right knee effusion which was tapped. She denies back pain. She has low-grade fever and was mildly tachycardic but no elevated white count. Total CK is 1052 consistent with mild rhabdomyolysis. Repeat level trending downward. dc IV fluid today 05/01 Start PT OT. Acute knee pain: Qualifiers: Laterality: right Qualified Code(s): M25.561 - Pain in right knee Code(s): M25.569 - Pain in unspecified knee Status: Acute Assessment and Plan: Patient with right knee pain with imaging showing effusion. She had 5000 red cells and 15,000 white cells that were 88% neutrophils. No crystals. Gram stain showing many WBC but no MO. She is with diffuse LE symptoms but doubt disseminated gonococcal WBC <20K and no trauma so will add Vanco for MRSA coverage. Ortho consulted and appreciate their input. Follow up on culture results: No growth Orthopedic surgeon performed arthroscopic, patient found having Meniscal tear, I and D was performed on 05/03 Continue PT OT Acute UTI: Code(s): N39.0 - Urinary tract infection, site not specified Status: Acute Assessment and Plan: UA is consistent with UTI. UCx collected. Rocephin started. UCx growing EColi. Follow up on UCx results. change to oral antibiotic Augmentin today till May 05 per ID pharmacist recommendation 05/03 (4) Effusion of right knee: Code(s): M25.461 - Effusion, right knee Status: Acute Assessment and Plan: As above sepsis Fever: Qualifiers: Fever type: due to other condition Qualified Code(s): R50.81 - Fever presenting with conditions classified elsewhere Code(s): R50.9 - Fever, unspecified Status: Acute Assessment and Plan: Related to above. Lightheadedness Blood pressure on the lower side today Start normal saline IV 100 mL/hour 05/04 Order orthostatic test: Positive orthostatic hypotension Start midodrine 2.5 mg t.i.d. p.o. apply compression socks, discontinue normal saline Plan Hypothyroidism - TSH Normal. Macrocytosis - Check b12/folate Code status - full DVT prophylaxis - Lovenox Consult PT OT, career resource specialist for evaluation and assisting placement Subjective Date/time seen: 05/04/24 09:35 Interval history: I saw exam patient in presents of patient's daughter today. Patient feels knee pain is tolerable. Patient has good appetite today, denies chest pain, focal weakness, palpitation abdomen pain nausea vomiting. Orthostatic blood pressure test is positive Exam Narrative: GENERAL: Pleasant, in no acute distress. Well-nourished. - EYES: EOMI. Anicteric. - HENT: Moist mucous membranes. - LUNGS: Clear to auscultation bilateral ly, no wheezing, rhonchi, or rales. - CARDIOVASCULAR: Regular rate and rhyth m. No murmur. No JVD. - ABDOMEN: Soft, non-tender and non-dist ended. No palpable masses. - EXTREMITIES: Pain with passive ROM t o the lower extremities. Bilateral knee pain with passive movement. Right knee surgical wound is well dressed, - NEUROLOGIC: No focal neurological defi cits. CN II-XII grossly intact. - PSYCHIATRIC: Awake, Alert and oriented x 3. Appropriate mood and affect. - SKIN: No rashes or lesions. Warm. - LYMPH: No cervical lymphadenopathy. Objective Data Vital Signs Vital Signs: Vital Signs - 24 hr 05/03/24 10:31 05/03/24 14:00 05/03/24 20:56 Temperature 97.6 F 98.0 F 98.2 F Pulse Rate 80 81 74 Respiratory Rate 18 18 16 Blood Pressure 89/53 L 109/44 L 166/70 H Pulse Oximetry 99 97 97 05/04/24 05:49 Temperature 97.5 F L Pulse Rate 73 Respiratory Rate 16 Blood Pressure 169/75 H Pulse Oximetry 99 Intake/Output Intake/Output: Intake & Output 05/01/24 05/02/24 05/03/24 05/04/24 23:59 23:59 23:59 23:59 Intake Total 2110 400 1270 550 Output Total 350 2000 800 1200 Balance 1760 -1600 470 -650 Meds/Results Medications: Active Medications Generic Name Dose Route Start Last Admin Trade Name Freq PRN Reason Stop Dose Admin Acetaminophen 650 mg 04/29/24 18:53 05/03/24 08:58 Acetaminophen 325 Mg Tablet PO 650 mg Q4H PRN Administration Mild Pain (1-3) or Fever Hydrocodone Bitart/Acetaminophen 1 tab 04/29/24 18:53 05/02/24 13:35 Hydrocodone/Acetaminophen (*Crx) 5-325 Mg Tablet PO 1 tab Q4H PRN Administration Pain Rated 4-10 Amoxicillin/Clavulanate Potassium 1 tablet 05/03/24 09:00 05/04/24 08:43 Amoxicillin/Clavulanate K 875-125 Mg Tab PO 05/05/24 21:01 1 tablet Q12HR MANJU Administration Enoxaparin Sodium 40 mg 05/01/24 18:00 05/03/24 17:35 Enoxaparin 40 Mg/0.4 Ml Syringe SUB-Q 40 mg QPM MANJU Administration Famotidine 20 mg 04/30/24 09:00 05/04/24 08:43 Famotidine 20 Mg Tablet PO 20 mg Q12HR MANJU Administration Levothyroxine Sodium 50 mcg 04/30/24 06:30 05/04/24 05:53 Levothyroxine Sodium 50 Mcg Tablet PO 50 mcg DAILY@0630 MANJU Administration Ondansetron HCl 4 mg 04/29/24 18:53 Ondansetron Inj 4 Mg/2 Ml Vial IV PUSH Q4H PRN Nausea Radiology Results: ITS Impressions Chest X-Ray 04/29/24 13:07 IMPRESSION: No acute cardiopulmonary pathology. Hip/Pelvis X-Ray 04/29/24 14:13 IMPRESSION: 1. Mild osteoarthritis of the hips. Knee X-Ray 04/29/24 14:15 IMPRESSION: No acute osseous abnormality right knee. Chondrocalcinosis. Mild to moderate osteoarthritic changes. Ankle X-Ray 04/30/24 20:28 IMPRESSION: Degenerative disease and diffuse bony demineralization without acute fracture. Knee MRI 05/01/24 12:59 IMPRESSION: 1. Complex lateral meniscal tear with macerated appearance of the meniscal body and no discernible anterior horn suggesting significant secondary displacement or degeneration of the meniscal tissue. 2. 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 3. Scarring consistent with chronic sprain of the proximal fibular collateral ligament. 4. Mild tendinopathy without tears at the quadriceps and popliteal tendons. 5. Likely reactive moderate sized right knee joint effusion. Labs Labs: Laboratory Results - last 24 hr 05/03/24 12:23 WBC 8.2 RBC 3.52 L Hgb 11.5 L Hct 35.1 L MCV 99.7 MCH 32.7 MCHC 32.8 RDW 12.3 Plt Count 377 H D MPV 8.7 Immature Gran % (Auto) 0.5 Neut % (Auto) 79.7 H Lymph % (Auto) 12.3 L Fleming % (Auto) 6.6 Eos % (Auto) 0.7 Baso % (Auto) 0.2 Lymph # (Auto) 1.01 Fleming # (Auto) 0.5 Eos # (Auto) 0.1 Baso # (Auto) 0.0 Abs Immat Gran (auto) 0.04 H Absolute Neuts (auto) 6.5 Absolute Nucleated RBC 0.000 Nucleated RBC % 0.0 Sodium 142 Potassium 3.6 Chloride 107 Carbon Dioxide 24 Anion Gap 11 BUN 16 Creatinine 0.94 Estim Creat Clear Calc 29 Estimated GFR 56 L Glucose 126 H Calcium 8.6
[2024-05-04 12:35] LABS: Basophils Percent Auto 0.6 % (0.2-1.2); Eosinophils Absolute Auto 0.2 K/mm3 (0-0.3); Hematocrit 34.9 % (37.0-47.0); Hemoglobin 11.1 g/dL (12.0-15.0); Immature Granulocyte Absolute 0.06 K/mm3 (0.00-0.031); Immature Granulocyte Percent A 1.1 % (0-0.5); Lymphocytes Absolute Auto 0.93 K/mm3 (0.9-3.2); Lymphocytes Percent Auto 17.6 % (18.3-44.2); Mean Corpuscular HGB Conc 31.8 g/dl (32-36); Mean Corpuscular Volume 100.6 fl (80-100); Mean Platelet Volume 8.3 fl (7.4-10.4); Monocytes Absolute Auto 0.4 K/mm3 (0.1-0.6); Monocytes Percent Auto 7.8 % (2.6-8.5); Neutrophils Absolute Auto 3.7 K/mm3 (1.3-6.7); Neutrophils Percent Auto 68.9 % (45.5-73.1); Platelet Count Result 371 k/mm3 (150-375); Red Blood Count 3.47 M/mm3 (4.2-5.4); Red Cell Distribution Width 12.4 % (11.5-14.5); White Blood Count 5.3 K/mm3 (4.5-10.0)
[2024-05-04] MEDS: MIDODRINE HCL 2.5 MG TABLET PO ×2 (12:35→18:20)
[2024-05-04 12:51] LABS: Anion Gap 7 mmol/L (4-12); Blood Urea Nitrogen 9 mg/dL (7-17); Calcium 8.4 mg/dL (8.4-10.2); Carbon Dioxide 29 mmol/L (22-30); Chloride 104 mmol/L (98-107); Estimated CRCL calculation 41 ml/min; Estimated Glomerular Filt Rate > 60; Glucose 130 mg/dL (65-110); Potassium 3.9 mmol/L (3.4-5.0); Sodium 140 mmol/L (137-145)
[2024-05-04 14:00] VITALS: BP 101/59; PULSE 75; RESP 18; O2SAT 100
[2024-05-04] MEDS: polyethylene glycoL 3350 17 GM POWD.PACK PO (15:15)
[2024-05-04] MEDS: ENOXAPARIN 40 MG/0.4 ML SYRINGE SUB-Q (18:20)
[2024-05-04 21:13] VITALS: BP 153/55; PULSE 72; RESP 12; TEMP 36.3; O2SAT 95
--- NOTE | 2024-05-04 23:51 | PC.NURSE ---
Patient refused 2100 medications: Augmentin 875-125 mg, Colace 100 mg, Pepcid 50 mg. Stated medicine not doing any good. Educated pt benefits, risk of taking vs not taking medications. Attempted to administer medications on three more occasions but still refused. Pt stable, no distress nor expressed need for pain medications. Will continue to monitor progress throughout night.
--- NOTE | 2024-05-05 03:02 | PC.NURSE ---
Daylight Savings Time For Daylight Savings Time Ending in the Fall - Clocks are moved back. For Daylight Savings Time Beginning in the Spring - Clocks are moved ahead. For [facility], the time of change occurs at 0200 hrs. Time is taken from the counter server. This entry on the patient's chart recognizes the change in time reflected during documentation. Example: 2 entries for vital signs may be charted for 0200 hrs.
[2024-05-05] MEDS: LEVOTHYROXINE SODIUM 50 MCG TABLET PO (05:44)
[2024-05-05 05:48] VITALS: BP 150/77; PULSE 67; RESP 14; TEMP 36.2; O2SAT 98
[2024-05-05 08:00] VITALS: PULSE 67; RESP 14; O2SAT 98
[2024-05-05] MEDS: MIDODRINE HCL 2.5 MG TABLET PO ×2 (08:49→13:09)
[2024-05-05] MEDS: DOCUSATE SODIUM 100 MG CAPSULE PO ×2 (08:49→20:42)
[2024-05-05] MEDS: AMOXICILLIN/CLAVULANATE K 875-125 MG TAB 1 TABLET PO ×2 (08:49→20:43)
[2024-05-05] MEDS: FAMOTIDINE 20 MG TABLET PO ×2 (08:49→20:42)
[2024-05-05] MEDS: HYDROcodone/acetaminophen (*CRX) 5-325 MG TABLET 1 TAB PO ×2 (08:52→17:49)
--- NOTE | 2024-05-05 10:18 | P.PNIM_ITS ---
Progress Note: A&P Assessment and Plan (1) Osteoporosis: Code(s): M81.0 - Age-related osteoporosis without current pathological fracture Status: Acute (2) Abnormal urinalysis: Code(s): R82.90 - Unspecified abnormal findings in urine Status: Acute (3) Acute UTI: Code(s): N39.0 - Urinary tract infection, site not specified Status: Acute (4) Sepsis: Qualifiers: Sepsis acute organ dysfunction status: without acute organ dysfunction Sepsis type: sepsis due to unspecified organism Qualified Code(s): A41.9 - Sepsis, unspecified organism Code(s): A41.9 - Sepsis, unspecified organism Status: Acute Plan Rhabdomyolysis: Qualifiers: Rhabdomyolysis type: non-traumatic Qualified Code(s): M62.82 - Rhabdomyolysis Code(s): M62.82 - Rhabdomyolysis Status: Acute Assessment and Plan: Patient with diffuse lower extremity bilateral pain. She was found to have a right knee effusion which was tapped. She denies back pain. She has low-grade fever and was mildly tachycardic but no elevated white count. Total CK is 1052 consistent with mild rhabdomyolysis. Repeat level trending downward. dc IV fluid today 05/01 Start PT OT. Acute knee pain: Qualifiers: Laterality: right Qualified Code(s): M25.561 - Pain in right knee Code(s): M25.569 - Pain in unspecified knee Status: Acute Assessment and Plan: Patient with right knee pain with imaging showing effusion. She had 5000 red cells and 15,000 white cells that were 88% neutrophils. No crystals. Gram stain showing many WBC but no MO. She is with diffuse LE symptoms but doubt disseminated gonococcal WBC <20K and no trauma so will add Vanco for MRSA coverage. Ortho consulted and appreciate their input. Follow up on culture results: No growth Orthopedic surgeon performed arthroscopic, patient found having Meniscal tear, I and D was performed on 05/03 Continue PT OT Acute UTI: Code(s): N39.0 - Urinary tract infection, site not specified Status: Acute Assessment and Plan: UA is consistent with UTI. UCx collected. Rocephin started. UCx growing EColi. Follow up on UCx results. change to oral antibiotic Augmentin today till May 05 per ID pharmacist recommendation 05/03 (4) Effusion of right knee: Code(s): M25.461 - Effusion, right knee Status: Acute Assessment and Plan: As above sepsis Fever: Qualifiers: Fever type: due to other condition Qualified Code(s): R50.81 - Fever presenting with conditions classified elsewhere Code(s): R50.9 - Fever, unspecified Status: Acute Assessment and Plan: Related to above. Lightheadedness Blood pressure on the lower side today Start normal saline IV 100 mL/hour 05/04 Order orthostatic test: Positive orthostatic hypotension Start midodrine 2.5 mg t.i.d. p.o. apply compression socks, discontinue normal saline 05/04 Increase midodrine 5 mg t.i.d. p.o. 05/05 Plan Hypothyroidism - TSH Normal. Macrocytosis - Check b12/folate Code status - full DVT prophylaxis - Lovenox Consult PT OT, client care coordinator for evaluation and assisting placement Subjective Date/time seen: 05/05/24 10:18 Interval history: I saw exam patient in presents of patient's daughter today. Patient feels knee pain is tolerable. Patient has good appetite today, denies chest pain, focal weakness, palpitation abdomen pain nausea vomiting. Patient still feels lightheaded when patient stood up and denies focal weakness Exam Narrative: GENERAL: Pleasant, in no acute distress. Well-nourished. - EYES: EOMI. Anicteric. - HENT: Moist mucous membranes. - LUNGS: Clear to auscultation bilateral ly, no wheezing, rhonchi, or rales. - CARDIOVASCULAR: Regular rate and rhyth m. No murmur. No JVD. - ABDOMEN: Soft, non-tender and non-dist ended. No palpable masses. - EXTREMITIES: Pain with passive ROM t o the lower extremities. Bilateral knee pain with passive movement. Right knee surgical wound is well dressed, - NEUROLOGIC: No focal neurological defi cits. CN II-XII grossly intact. - PSYCHIATRIC: Awake, Alert and oriented x 3. Appropriate mood and affect. - SKIN: No rashes or lesions. Warm. - LYMPH: No cervical lymphadenopathy. Objective Data Vital Signs Vital Signs: Vital Signs - 24 hr 05/04/24 14:00 05/04/24 21:13 05/04/24 21:25 Temperature 97.3 F L Pulse Rate 75 72 Respiratory Rate 18 12 Blood Pressure 101/59 L 153/55 H Pulse Oximetry 100 95 Oxygen Delivery Room Air 05/05/24 05:48 Temperature 97.1 F L Pulse Rate 67 Respiratory Rate 14 Blood Pressure 150/77 H Pulse Oximetry 98 Oxygen Delivery Intake/Output Intake/Output: Intake & Output 05/02/24 05/03/24 05/04/24 05/06/24 23:59 23:59 23:59 00:59 Intake Total 400 1270 1270 250 Output Total 2000 800 1200 700 Balance -1600 470 70 -450 Meds/Results Medications: Active Medications Generic Name Dose Route Start Last Admin Trade Name Freq PRN Reason Stop Dose Admin Acetaminophen 650 mg 04/29/24 18:53 05/03/24 08:58 Acetaminophen 325 Mg Tablet PO 650 mg Q4H PRN Administration Mild Pain (1-3) or Fever Hydrocodone Bitart/Acetaminophen 1 tab 04/29/24 18:53 05/05/24 08:52 Hydrocodone/Acetaminophen (*Crx) 5-325 Mg Tablet PO 1 tab Q4H PRN Administration Pain Rated 4-10 Amoxicillin/Clavulanate Potassium 1 tablet 05/03/24 09:00 05/05/24 08:49 Amoxicillin/Clavulanate K 875-125 Mg Tab PO 05/05/24 21:01 1 tablet Q12HR MANJU Administration Docusate Sodium 100 mg 05/04/24 21:00 05/05/24 08:49 Docusate Sodium 100 Mg Capsule PO 100 mg Q12HR MANJU Administration Enoxaparin Sodium 40 mg 05/01/24 18:00 05/04/24 18:20 Enoxaparin 40 Mg/0.4 Ml Syringe SUB-Q 40 mg QPM MANJU Administration Famotidine 20 mg 04/30/24 09:00 05/05/24 08:49 Famotidine 20 Mg Tablet PO 20 mg Q12HR MANJU Administration Levothyroxine Sodium 50 mcg 04/30/24 06:30 05/05/24 05:44 Levothyroxine Sodium 50 Mcg Tablet PO 50 mcg DAILY@0630 MANJU Administration Midodrine 2.5 mg 05/04/24 13:00 05/05/24 08:49 Midodrine Hcl 2.5 Mg Tablet PO 2.5 mg TID MANJU Administration Ondansetron HCl 4 mg 04/29/24 18:53 Ondansetron Inj 4 Mg/2 Ml Vial IV PUSH Q4H PRN Nausea Polyethylene Glycol 17 gm 05/04/24 15:09 05/04/24 15:15 Polyethylene Glycol 3350 17 Gm Powd.Pack PO 17 gm DAILY PRN Administration Constipation Radiology Results: ITS Impressions Chest X-Ray 04/29/24 13:07 IMPRESSION: No acute cardiopulmonary pathology. Hip/Pelvis X-Ray 04/29/24 14:13 IMPRESSION: 1. Mild osteoarthritis of the hips. Knee X-Ray 04/29/24 14:15 IMPRESSION: No acute osseous abnormality right knee. Chondrocalcinosis. Mild to moderate osteoarthritic changes. Ankle X-Ray 04/30/24 20:28 IMPRESSION: Degenerative disease and diffuse bony demineralization without acute fracture. Knee MRI 05/01/24 12:59 IMPRESSION: 1. Complex lateral meniscal tear with macerated appearance of the meniscal body and no discernible anterior horn suggesting significant secondary displacement or degeneration of the meniscal tissue. 2. 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 3. Scarring consistent with chronic sprain of the proximal fibular collateral ligament. 4. Mild tendinopathy without tears at the quadriceps and popliteal tendons. 5. Likely reactive moderate sized right knee joint effusion. Labs Labs: Laboratory Results - last 24 hr 05/04/24 12:30 WBC 5.3 RBC 3.47 L Hgb 11.1 L Hct 34.9 L MCV 100.6 H MCH 32.0 MCHC 31.8 L RDW 12.4 Plt Count 371 MPV 8.3 Immature Gran % (Auto) 1.1 H Neut % (Auto) 68.9 Lymph % (Auto) 17.6 L [place] % (Auto) 7.8 Eos % (Auto) 4.0 Baso % (Auto) 0.6 Lymph # (Auto) 0.93 [place] # (Auto) 0.4 Eos # (Auto) 0.2 Baso # (Auto) 0.0 Abs Immat Gran (auto) 0.06 H Absolute Neuts (auto) 3.7 Absolute Nucleated RBC 0.000 Nucleated RBC % 0.0 Sodium 140 Potassium 3.9 Chloride 104 Carbon Dioxide 29 Anion Gap 7 BUN 9 D Creatinine 0.65 L Estim Creat Clear Calc 41 Estimated GFR > 60 Glucose 130 H Calcium 8.4
[2024-05-05 12:22] LABS: Basophils Percent Auto 0.4 % (0.2-1.2); Eosinophils Absolute Auto 0.2 K/mm3 (0-0.3); Hematocrit 33.6 % (37.0-47.0); Immature Granulocyte Absolute 0.08 K/mm3 (0.00-0.031); Immature Granulocyte Percent A 1.1 % (0-0.5); Lymphocytes Absolute Auto 1.35 K/mm3 (0.9-3.2); Mean Corpuscular HGB Conc 32.7 g/dl (32-36); Mean Corpuscular Hemoglobin 32.9 pg (26-34); Mean Corpuscular Volume 100.6 fl (80-100); Mean Platelet Volume 8.6 fl (7.4-10.4); Monocytes Absolute Auto 0.6 K/mm3 (0.1-0.6); Monocytes Percent Auto 7.9 % (2.6-8.5); Neutrophils Absolute Auto 4.9 K/mm3 (1.3-6.7); Neutrophils Percent Auto 68.6 % (45.5-73.1); Platelet Count Result 445 k/mm3 (150-375); Red Blood Count 3.34 M/mm3 (4.2-5.4); Red Cell Distribution Width 12.6 % (11.5-14.5); White Blood Count 7.1 K/mm3 (4.5-10.0)
[2024-05-05 12:37] LABS: Anion Gap 9 mmol/L (4-12); Blood Urea Nitrogen 13 mg/dL (7-17); Calcium 8.8 mg/dL (8.4-10.2); Carbon Dioxide 26 mmol/L (22-30); Chloride 102 mmol/L (98-107); Estimated CRCL calculation 28 ml/min; Estimated Glomerular Filt Rate 53; Glucose 158 mg/dL (65-110); Potassium 3.9 mmol/L (3.4-5.0); Sodium 137 mmol/L (137-145)
[2024-05-05 14:00] VITALS: BP 105/40; PULSE 65; RESP 18; TEMP 36.5; O2SAT 100
[2024-05-05] MEDS: polyethylene glycoL 3350 17 GM POWD.PACK PO (15:52)
[2024-05-05] MEDS: MIDODRINE HCL 2.5 MG TABLET 5 MG PO (17:49)
[2024-05-05 21:56] VITALS: BP 159/59; PULSE 71; RESP 14; TEMP 36.3; O2SAT 96
[2024-05-06 06:00] VITALS: BP 169/66; PULSE 67; RESP 12; TEMP 36.2; O2SAT 99
[2024-05-06] MEDS: LEVOTHYROXINE SODIUM 50 MCG TABLET PO (06:08)
[2024-05-06 08:00] VITALS: BP 120/43; O2SAT 98
[2024-05-06 08:30] VITALS: BP 109/42
[2024-05-06] MEDS: DOCUSATE SODIUM 100 MG CAPSULE PO (09:01)
[2024-05-06] MEDS: MIDODRINE HCL 2.5 MG TABLET 5 MG PO ×3 (09:01→17:24)
[2024-05-06] MEDS: FAMOTIDINE 20 MG TABLET PO ×2 (09:02→20:13)
[2024-05-06 14:00] VITALS: BP 154/49; PULSE 75; RESP 18; TEMP 37; O2SAT 98
--- NOTE | 2024-05-06 14:28 | P.PNIM_ITS ---
Progress Note: A&P Assessment and Plan (1) Osteoporosis: Code(s): M81.0 - Age-related osteoporosis without current pathological fracture Status: Acute (2) Abnormal urinalysis: Code(s): R82.90 - Unspecified abnormal findings in urine Status: Acute (3) Acute UTI: Code(s): N39.0 - Urinary tract infection, site not specified Status: Acute (4) Sepsis: Qualifiers: Sepsis type: sepsis due to unspecified organism Sepsis acute organ dysfunction status: without acute organ dysfunction Qualified Code(s): A41.9 - Sepsis, unspecified organism Code(s): A41.9 - Sepsis, unspecified organism Status: Acute Plan Rhabdomyolysis: Qualifiers: Rhabdomyolysis type: non-traumatic Qualified Code(s): M62.82 - Rhabdomyolysis Code(s): M62.82 - Rhabdomyolysis Status: Acute Assessment and Plan: Patient with diffuse lower extremity bilateral pain. She was found to have a right knee effusion which was tapped. She denies back pain. She has low-grade fever and was mildly tachycardic but no elevated white count. Total CK is 1052 consistent with mild rhabdomyolysis. Repeat level trending downward. dc IV fluid today 05/01 Resolved Acute knee pain: Qualifiers: Laterality: right Qualified Code(s): M25.561 - Pain in right knee Code(s): M25.569 - Pain in unspecified knee Status: Acute Assessment and Plan: Patient with right knee pain with imaging showing effusion. She had 5000 red cells and 15,000 white cells that were 88% neutrophils. No crystals. Gram stain showing many WBC but no MO. She is with diffuse LE symptoms but doubt disseminated gonococcal WBC <20K and no trauma so will add Vanco for MRSA coverage. Ortho consulted and appreciate their input. Follow up on culture results: No growth Orthopedic surgeon performed arthroscopic, patient found having Meniscal tear, I and D was performed on 05/03 Continue PT OT and medicare contact specialist for evaluation and assisting placement Constipation Likely secondary to immobility and narcotic medication Start Senokot S 2 tablets b.i.d. p.o., MiraLax 1 packet daily Acute UTI: Code(s): N39.0 - Urinary tract infection, site not specified Status: Acute Assessment and Plan: UA is consistent with UTI. UCx collected. Rocephin started. UCx growing EColi. Follow up on UCx results. change to oral antibiotic Augmentin today till May 05 per ID pharmacist recommendation 05/03 Completed the antibiotics treatment Asymptomatic now (4) Effusion of right knee: Code(s): M25.461 - Effusion, right knee Status: Acute Assessment and Plan: As above sepsis Fever: Qualifiers: Fever type: due to other condition Qualified Code(s): R50.81 - Fever presenting with conditions classified elsewhere Code(s): R50.9 - Fever, unspecified Status: Acute Assessment and Plan: Related to above. Lightheadedness Blood pressure on the lower side today Start normal saline IV 100 mL/hour 05/04 Order orthostatic test: Positive orthostatic hypotension Start midodrine 2.5 mg t.i.d. p.o. apply compression socks, discontinue normal saline 05/04 Increase midodrine 5 mg t.i.d. p.o. 05/05 Plan Hypothyroidism - TSH Normal. Macrocytosis - Check b12/folate Code status - full DVT prophylaxis - Lovenox Consult PT OT, medicare contact specialist for evaluation and assisting placement Subjective Date/time seen: 05/06/24 14:28 Interval history: Patient feels better today, patient did not have lightheadedness when patient wa s walking. Still has severe right knee pain able, cannot ambulate without help. Patient has constipation, had a small bowel movement yesterday. Denies chest pain abdomen pain nausea vomiting. Patient is afebrile blood pressure stable Exam Narrative: GENERAL: Pleasant, in no acute distress. Well-nourished. - EYES: EOMI. Anicteric. - HENT: Moist mucous membranes. - LUNGS: Clear to auscultation bilateral ly, no wheezing, rhonchi, or rales. - CARDIOVASCULAR: Regular rate and rhyth m. No murmur. No JVD. - ABDOMEN: Soft, non-tender and non-dist ended. No palpable masses. - EXTREMITIES: Pain with passive ROM t o the lower extremities. Bilateral knee pain with passive movement. Right knee surgical wound is well dressed, - NEUROLOGIC: No focal neurological defi cits. CN II-XII grossly intact. - PSYCHIATRIC: Awake, Alert and oriented x 3. Appropriate mood and affect. - SKIN: No rashes or lesions. Warm. - LYMPH: No cervical lymphadenopathy. Objective Data Vital Signs Vital Signs: Vital Signs - 24 hr 05/05/24 20:40 05/05/24 21:56 05/06/24 06:00 Temperature 97.3 F L 97.1 F L Pulse Rate 71 67 Respiratory Rate 14 12 Blood Pressure 159/59 H 169/66 H Pulse Oximetry 96 99 Oxygen Delivery Room Air 05/06/24 08:00 05/06/24 08:30 Temperature Pulse Rate Respiratory Rate Blood Pressure 120/43 L 109/42 L Pulse Oximetry Oxygen Delivery Intake/Output Intake/Output: Intake & Output 05/03/24 05/04/24 05/06/24 05/06/24 23:59 23:59 00:59 23:59 Intake Total 1270 1270 730 50 Output Total 800 1200 700 400 Balance 470 70 30 -350 Meds/Results Medications: Active Medications Generic Name Dose Route Start Last Admin Trade Name Freq PRN Reason Stop Dose Admin Acetaminophen 650 mg 04/29/24 18:53 05/03/24 08:58 Acetaminophen 325 Mg Tablet PO 650 mg Q4H PRN Administration Mild Pain (1-3) or Fever Hydrocodone Bitart/Acetaminophen 1 tab 04/29/24 18:53 05/05/24 17:49 Hydrocodone/Acetaminophen (*Crx) 5-325 Mg Tablet PO 1 tab Q4H PRN Administration Pain Rated 4-10 Docusate Sodium 100 mg 05/04/24 21:00 05/06/24 09:01 Docusate Sodium 100 Mg Capsule PO 100 mg Q12HR MANJU Administration Enoxaparin Sodium 40 mg 05/01/24 18:00 05/05/24 17:53 Enoxaparin 40 Mg/0.4 Ml Syringe SUB-Q Not Given QPM MANJU Famotidine 20 mg 04/30/24 09:00 05/06/24 09:02 Famotidine 20 Mg Tablet PO 20 mg Q12HR MANJU Administration Levothyroxine Sodium 50 mcg 04/30/24 06:30 05/06/24 06:08 Levothyroxine Sodium 50 Mcg Tablet PO 50 mcg DAILY@0630 MANJU Administration Midodrine 5 mg 05/05/24 17:00 05/06/24 14:17 Midodrine Hcl 2.5 Mg Tablet PO 5 mg TID MANJU Administration Ondansetron HCl 4 mg 04/29/24 18:53 Ondansetron Inj 4 Mg/2 Ml Vial IV PUSH Q4H PRN Nausea Polyethylene Glycol 17 gm 05/04/24 15:09 05/05/24 15:52 Polyethylene Glycol 3350 17 Gm Powd.Pack PO 17 gm DAILY PRN Administration Constipation Radiology Results: ITS Impressions Chest X-Ray 04/29/24 13:07 IMPRESSION: No acute cardiopulmonary pathology. Hip/Pelvis X-Ray 04/29/24 14:13 IMPRESSION: 1. Mild osteoarthritis of the hips. Knee X-Ray 04/29/24 14:15 IMPRESSION: No acute osseous abnormality right knee. Chondrocalcinosis. Mild to moderate osteoarthritic changes. Ankle X-Ray 04/30/24 20:28 IMPRESSION: Degenerative disease and diffuse bony demineralization without acute fracture. Knee MRI 05/01/24 12:59 IMPRESSION: 1. Complex lateral meniscal tear with macerated appearance of the meniscal body and no discernible anterior horn suggesting significant secondary displacement or degeneration of the meniscal tissue. 2. 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 3. Scarring consistent with chronic sprain of the proximal fibular collateral ligament. 4. Mild tendinopathy without tears at the quadriceps and popliteal tendons. 5. Likely reactive moderate sized right knee joint effusion.
[2024-05-06] MEDS: SENNA/DOCUSATE SODIUM TABLET 2 TAB PO (17:24)
[2024-05-06 22:00] VITALS: BP 149/62; PULSE 69; RESP 16; TEMP 36.9; O2SAT 94
[2024-05-07] MEDS: LEVOTHYROXINE SODIUM 50 MCG TABLET PO (05:34)
[2024-05-07 06:00] VITALS: PULSE 60; RESP 20; TEMP 36.7; O2SAT 98
[2024-05-07 08:00] VITALS: O2SAT 98
[2024-05-07] MEDS: MIDODRINE HCL 2.5 MG TABLET 5 MG PO ×3 (09:41→16:52)
[2024-05-07] MEDS: polyethylene glycoL 3350 17 GM POWD.PACK PO (09:41)
[2024-05-07] MEDS: SENNA/DOCUSATE SODIUM TABLET 2 TAB PO ×2 (09:41→16:52)
[2024-05-07] MEDS: FAMOTIDINE 20 MG TABLET PO ×2 (09:41→21:37)
[2024-05-07] MEDS: HYDROcodone/acetaminophen (*CRX) 5-325 MG TABLET 1 TAB PO ×2 (09:42→21:36)
--- NOTE | 2024-05-07 10:33 | PM.IMPN ---
Progress Note: A&P Assessment and Plan (1) Osteoporosis: Code(s): M81.0 - Age-related osteoporosis without current pathological fracture Status: Acute (2) Abnormal urinalysis: Code(s): R82.90 - Unspecified abnormal findings in urine Status: Acute (3) Acute UTI: Code(s): N39.0 - Urinary tract infection, site not specified Status: Acute (4) Sepsis: Qualifiers: Sepsis acute organ dysfunction status: without acute organ dysfunction Sepsis type: sepsis due to unspecified organism Qualified Code(s): A41.9 - Sepsis, unspecified organism Code(s): A41.9 - Sepsis, unspecified organism Status: Acute Plan Rhabdomyolysis: Qualifiers: Rhabdomyolysis type: non-traumatic Qualified Code(s): M62.82 - Rhabdomyolysis Code(s): M62.82 - Rhabdomyolysis Status: Acute Assessment and Plan: Patient with diffuse lower extremity bilateral pain. She was found to have a right knee effusion which was tapped. She denies back pain. She has low-grade fever and was mildly tachycardic but no elevated white count. Total CK is 1052 consistent with mild rhabdomyolysis. Repeat level trending downward. dc IV fluid today 05/01 Resolved Acute knee pain: Qualifiers: Laterality: right Qualified Code(s): M25.561 - Pain in right knee Code(s): M25.569 - Pain in unspecified knee Status: Acute Assessment and Plan: Patient with right knee pain with imaging showing effusion. She had 5000 red cells and 15,000 white cells that were 88% neutrophils. No crystals. Gram stain showing many WBC but no MO. She is with diffuse LE symptoms but doubt disseminated gonococcal WBC <20K and no trauma so will add Vanco for MRSA coverage. Ortho consulted and appreciate their input. Follow up on culture results: No growth Orthopedic surgeon performed arthroscopic, patient found having Meniscal tear, I and D was performed on 05/03 Continue PT OT and technical healthcare consultant for evaluation and assisting placement Constipation Likely secondary to immobility and narcotic medication Start Senokot S 2 tablets b.i.d. p.o., MiraLax 1 packet daily Acute UTI: Code(s): N39.0 - Urinary tract infection, site not specified Status: Acute Assessment and Plan: UA is consistent with UTI. UCx collected. Rocephin started. UCx growing EColi. Follow up on UCx results. change to oral antibiotic Augmentin today till May 05 per ID pharmacist recommendation 05/03 Completed the antibiotics treatment Asymptomatic now (4) Effusion of right knee: Code(s): M25.461 - Effusion, right knee Status: Acute Assessment and Plan: As above sepsis Fever: Qualifiers: Fever type: due to other condition Qualified Code(s): R50.81 - Fever presenting with conditions classified elsewhere Code(s): R50.9 - Fever, unspecified Status: Acute Assessment and Plan: Related to above. Lightheadedness Blood pressure on the lower side today Start normal saline IV 100 mL/hour 05/04 Order orthostatic test: Positive orthostatic hypotension Start midodrine 2.5 mg t.i.d. p.o. apply compression socks, discontinue normal saline 05/04 Increase midodrine 5 mg t.i.d. p.o. 05/05 Plan Hypothyroidism - TSH Normal. Macrocytosis - Check b12/folate Code status - full DVT prophylaxis - Lovenox Consult PT OT, technical healthcare consultant for evaluation and assisting placement Subjective Date/time seen: 05/07/24 10:33 Interval history: Patient feels better today, has right knee pain, ambulate w/ help. Patient has constipation, had a small bowel movement yesterday. Denies chest pain abdomen pain nausea vomiting. Patient is afebrile blood pressure stable Exam Narrative: GENERAL: Pleasant, in no acute distress. Well-nourished. - EYES: EOMI. Anicteric. - HENT: Moist mucous membranes. - LUNGS: Clear to auscultation bilaterally, no wheezing, rhonchi, or rales. - CARDIOVASCULAR: Regular rate and rhythm. No murmur. No JVD. - ABDOMEN: Soft, non-tender and non-distended. No palpable masses. - EXTREMITIES: Pain with passive ROM to the lower extremities. Bilateral knee pain with passive movement. Right knee surgical wound is well dressed, - NEUROLOGIC: No focal neurological deficits. CN II-XII grossly intact. - PSYCHIATRIC: Awake, Alert and oriented x 3. Appropriate mood and affect. - SKIN: No rashes or lesions. Warm. - LYMPH: No cervical lymphadenopathy. Objective Data Vital Signs Vital Signs: Vital Signs - 24 hr 05/06/24 14:00 05/06/24 20:13 05/06/24 22:00 Temperature 98.6 F 98.4 F Pulse Rate 75 69 Respiratory Rate 18 16 Blood Pressure 154/49 H 149/62 H Pulse Oximetry 98 94 Oxygen Delivery Room Air 05/07/24 06:00 Temperature 98.0 F Pulse Rate 60 Respiratory Rate 20 Blood Pressure Pulse Oximetry 98 Oxygen Delivery Intake/Output Intake/Output: Intake & Output 05/04/24 05/06/24 05/06/24 05/07/24 23:59 00:59 23:59 23:59 Intake Total 1270 730 770 Output Total 1200 700 400 200 Balance 70 30 370 -200 Meds/Results Medications: Active Medications Generic Name Dose Route Start Last Admin Trade Name Freq PRN Reason Stop Dose Admin Acetaminophen 650 mg 04/29/24 18:53 05/03/24 08:58 Acetaminophen 325 Mg Tablet PO 650 mg Q4H PRN Administration Mild Pain (1-3) or Fever Hydrocodone Bitart/Acetaminophen 1 tab 04/29/24 18:53 05/07/24 09:42 Hydrocodone/Acetaminophen (*Crx) 5-325 Mg Tablet PO 1 tab Q4H PRN Administration Pain Rated 4-10 Enoxaparin Sodium 30 mg 05/07/24 18:00 Enoxaparin 30 Mg/0.3 Ml Syringe SUB-Q QPM MANJU Famotidine 20 mg 04/30/24 09:00 05/07/24 09:41 Famotidine 20 Mg Tablet PO 20 mg Q12HR MANJU Administration Levothyroxine Sodium 50 mcg 04/30/24 06:30 05/07/24 05:34 Levothyroxine Sodium 50 Mcg Tablet PO 50 mcg DAILY@0630 MANJU Administration Midodrine 5 mg 05/05/24 17:00 05/07/24 09:41 Midodrine Hcl 2.5 Mg Tablet PO 5 mg TID MANJU Administration Ondansetron HCl 4 mg 04/29/24 18:53 Ondansetron Inj 4 Mg/2 Ml Vial IV PUSH Q4H PRN Nausea Polyethylene Glycol 17 gm 05/07/24 09:00 05/07/24 09:41 Polyethylene Glycol 3350 17 Gm Powd.Pack PO 17 gm DAILY MANJU Administration Senna/Docusate Sodium 2 tab 05/06/24 14:30 05/07/24 09:41 Senna/Docusate Sodium Tablet PO 2 tab BID MANJU Administration Radiology Results: ITS Impressions Chest X-Ray 04/29/24 13:07 IMPRESSION: No acute cardiopulmonary pathology. Hip/Pelvis X-Ray 04/29/24 14:13 IMPRESSION: 1. Mild osteoarthritis of the hips. Knee X-Ray 04/29/24 14:15 IMPRESSION: No acute osseous abnormality right knee. Chondrocalcinosis. Mild to moderate osteoarthritic changes. Ankle X-Ray 04/30/24 20:28 IMPRESSION: Degenerative disease and diffuse bony demineralization without acute fracture. Knee MRI 05/01/24 12:59 IMPRESSION: 1. Complex lateral meniscal tear with macerated appearance of the meniscal body and no discernible anterior horn suggesting significant secondary displacement or degeneration of the meniscal tissue. 2. 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 3. Scarring consistent with chronic sprain of the proximal fibular collateral ligament. 4. Mild tendinopathy without tears at the quadriceps and popliteal tendons. 5. Likely reactive moderate sized right knee joint effusion.
--- NOTE | 2024-05-07 12:34 | PCNWS ---
Weekly nutritional screen. Patient is tolerating current Regular diet with adequate intake 50-100%. No weight loss reported. No nutritional recommendations at this time.
[2024-05-07] MEDS: ENOXAPARIN 30 MG/0.3 ML SYRINGE SUB-Q (16:54)
[2024-05-07 21:13] VITALS: BP 152/71; PULSE 68; RESP 17; TEMP 36.8; O2SAT 96
[2024-05-08] VITALS (7 sets, daily range): BP systolic 105–146; BP diastolic 41–71; PULSE 54–86; RESP 14–18; TEMP 36.6–37.1; O2SAT 96–100
[2024-05-08] MEDS: LEVOTHYROXINE SODIUM 50 MCG TABLET PO (05:51)
--- NOTE | 2024-05-08 08:31 | PM.IMPN ---
Progress Note: A&P Assessment and Plan (1) Osteoporosis: Code(s): M81.0 - Age-related osteoporosis without current pathological fracture Status: Acute (2) Abnormal urinalysis: Code(s): R82.90 - Unspecified abnormal findings in urine Status: Acute (3) Acute UTI: Code(s): N39.0 - Urinary tract infection, site not specified Status: Acute (4) Sepsis: Qualifiers: Sepsis acute organ dysfunction status: without acute organ dysfunction Sepsis type: sepsis due to unspecified organism Qualified Code(s): A41.9 - Sepsis, unspecified organism Code(s): A41.9 - Sepsis, unspecified organism Status: Acute Plan Rhabdomyolysis: Qualifiers: Rhabdomyolysis type: non-traumatic Qualified Code(s): M62.82 - Rhabdomyolysis Code(s): M62.82 - Rhabdomyolysis Status: Acute Assessment and Plan: Patient with diffuse lower extremity bilateral pain. She was found to have a right knee effusion which was tapped. She denies back pain. She has low-grade fever and was mildly tachycardic but no elevated white count. Total CK is 1052 consistent with mild rhabdomyolysis. Repeat level trending downward. dc IV fluid today 05/01 Resolved Acute knee pain: Qualifiers: Laterality: right Qualified Code(s): M25.561 - Pain in right knee Code(s): M25.569 - Pain in unspecified knee Status: Acute Assessment and Plan: Patient with right knee pain with imaging showing effusion. She had 5000 red cells and 15,000 white cells that were 88% neutrophils. No crystals. Gram stain showing many WBC but no MO. She is with diffuse LE symptoms but doubt disseminated gonococcal WBC <20K and no trauma so will add Vanco for MRSA coverage. Ortho consulted and appreciate their input. Follow up on culture results: No growth Orthopedic surgeon performed arthroscopic, patient found having Meniscal tear, I and D was performed on 05/03 Continue PT OT and hospice patient care secretary for evaluation and assisting placement Constipation Likely secondary to immobility and narcotic medication Start Senokot S 2 tablets b.i.d. p.o., MiraLax 1 packet daily Has bowel movement Acute UTI: Code(s): N39.0 - Urinary tract infection, site not specified Status: Acute Assessment and Plan: UA is consistent with UTI. UCx collected. Rocephin started. UCx growing EColi. Follow up on UCx results. change to oral antibiotic Augmentin today till May 05 per ID pharmacist recommendation 05/03 Completed the antibiotics treatment Asymptomatic now (4) Effusion of right knee: Code(s): M25.461 - Effusion, right knee Status: Acute Assessment and Plan: As above sepsis Fever: Qualifiers: Fever type: due to other condition Qualified Code(s): R50.81 - Fever presenting with conditions classified elsewhere Code(s): R50.9 - Fever, unspecified Status: Acute Assessment and Plan: Related to above. Resolved Lightheadedness Blood pressure on the lower side today Start normal saline IV 100 mL/hour 05/04 Order orthostatic test: Positive orthostatic hypotension Start midodrine 2.5 mg t.i.d. p.o. apply compression socks, discontinue normal saline 05/04 Increase midodrine 5 mg t.i.d. p.o. 05/05 Improves significantly, continue current treatment 05/08 Plan Hypothyroidism - TSH Normal. Macrocytosis - Check b12/folate Code status - full DVT prophylaxis - Lovenox Consult PT OT, hospice patient care secretary for evaluation and assisting placement Subjective Date/time seen: 05/08/24 08:31 Interval history: Patient feels better today, has right knee pain, ambulate w/ help. Dizziness is improving, has bowel movement. Patient is afebrile blood pressure stable. Exam Narrative: GENERAL: Pleasant, in no acute distress. Well-nourished. - EYES: EOMI. Anicteric. - HENT: Moist mucous membranes. - LUNGS: Clear to auscultation bilaterally, no wheezing, rhonchi, or rales. - CARDIOVASCULAR: Regular rate and rhythm. No murmur. No JVD. - ABDOMEN: Soft, non-tender and non-distended. No palpable masses. - EXTREMITIES: Pain with passive ROM to the lower extremities. Bilateral knee pain with passive movement. Right knee surgical wound is well dressed, - NEUROLOGIC: No focal neurological deficits. CN II-XII grossly intact. - PSYCHIATRIC: Awake, Alert and oriented x 3. Appropriate mood and affect. - SKIN: No rashes or lesions. Warm. - LYMPH: No cervical lymphadenopathy. Objective Data Vital Signs Vital Signs: Vital Signs - 24 hr 05/07/24 21:13 05/08/24 05:57 Temperature 98.2 F 98.1 F Pulse Rate 68 58 L Respiratory Rate 17 14 Blood Pressure 152/71 H 146/66 H Pulse Oximetry 96 99 Intake/Output Intake/Output: Intake & Output 05/06/24 05/06/24 05/07/24 05/08/24 00:59 23:59 23:59 23:59 Intake Total 497 904 2220 150 Output Total 700 400 200 350 Balance 30 370 1317 -200 Meds/Results Medications: Active Medications Generic Name Dose Route Start Last Admin Trade Name Freq PRN Reason Stop Dose Admin Acetaminophen 650 mg 04/29/24 18:53 05/03/24 08:58 Acetaminophen 325 Mg Tablet PO 650 mg Q4H PRN Administration Mild Pain (1-3) or Fever Hydrocodone Bitart/Acetaminophen 1 tab 04/29/24 18:53 05/07/24 21:36 Hydrocodone/Acetaminophen (*Crx) 5-325 Mg Tablet PO 1 tab Q4H PRN Administration Pain Rated 4-10 Enoxaparin Sodium 30 mg 05/07/24 18:00 05/07/24 16:54 Enoxaparin 30 Mg/0.3 Ml Syringe SUB-Q 30 mg QPM MANJU Administration Famotidine 20 mg 04/30/24 09:00 05/07/24 21:37 Famotidine 20 Mg Tablet PO 20 mg Q12HR MANJU Administration Levothyroxine Sodium 50 mcg 04/30/24 06:30 05/08/24 05:51 Levothyroxine Sodium 50 Mcg Tablet PO 50 mcg DAILY@0630 MANJU Administration Midodrine 5 mg 05/05/24 17:00 05/07/24 16:52 Midodrine Hcl 2.5 Mg Tablet PO 5 mg TID MANJU Administration Ondansetron HCl 4 mg 04/29/24 18:53 Ondansetron Inj 4 Mg/2 Ml Vial IV PUSH Q4H PRN Nausea Polyethylene Glycol 17 gm 05/07/24 09:00 05/07/24 09:41 Polyethylene Glycol 3350 17 Gm Powd.Pack PO 17 gm DAILY MANJU Administration Senna/Docusate Sodium 2 tab 05/06/24 14:30 05/07/24 16:52 Senna/Docusate Sodium Tablet PO 2 tab BID MANJU Administration Radiology Results: ITS Impressions Chest X-Ray 04/29/24 13:07 IMPRESSION: No acute cardiopulmonary pathology. Hip/Pelvis X-Ray 04/29/24 14:13 IMPRESSION: 1. Mild osteoarthritis of the hips. Knee X-Ray 04/29/24 14:15 IMPRESSION: No acute osseous abnormality right knee. Chondrocalcinosis. Mild to moderate osteoarthritic changes. Ankle X-Ray 04/30/24 20:28 IMPRESSION: Degenerative disease and diffuse bony demineralization without acute fracture. Knee MRI 05/01/24 12:59 IMPRESSION: 1. Complex lateral meniscal tear with macerated appearance of the meniscal body and no discernible anterior horn suggesting significant secondary displacement or degeneration of the meniscal tissue. 2. 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 3. Scarring consistent with chronic sprain of the proximal fibular collateral ligament. 4. Mild tendinopathy without tears at the quadriceps and popliteal tendons. 5. Likely reactive moderate sized right knee joint effusion.
[2024-05-08] MEDS: SENNA/DOCUSATE SODIUM TABLET 2 TAB PO ×2 (08:50→17:46)
[2024-05-08] MEDS: MIDODRINE HCL 2.5 MG TABLET 5 MG PO ×3 (08:50→17:46)
[2024-05-08] MEDS: polyethylene glycoL 3350 17 GM POWD.PACK PO (08:50)
[2024-05-08] MEDS: FAMOTIDINE 20 MG TABLET PO ×2 (08:50→20:54)
[2024-05-08] MEDS: HYDROcodone/acetaminophen (*CRX) 5-325 MG TABLET 1 TAB PO (10:08)
[2024-05-08] MEDS: ONDANSETRON HCL ODT 4 MG TABLET PO (12:40)
--- NOTE | 2024-05-08 13:14 | PCPTNOTE ---
Attempted to see patient 2x today for PT. On this attempt RN and patient's daughter report patient ambulated to the bathroom with assist and then sat up in chair. While sitting in chair patient c/o increased dizziness and BP decreased. Patient was assisted back to bed and is sleeping at this time. PT will continue to follow per plan of care.
--- NOTE | 2024-05-08 13:46 | PCOTNOTE ---
Patient attempted to be seen 2 times this date. This A.M. Patient had no received her blood pressure medication yet, attmepted again and Patient having increased dizziness with the low blood pressures and back in bed sleeping at this time. Patient declines to participate this P.M.
[2024-05-09] MEDS: HYDROcodone/acetaminophen (*CRX) 5-325 MG TABLET 1 TAB PO ×2 (03:09→10:04)
[2024-05-09 05:42] VITALS: BP 103/45; PULSE 71; RESP 20; TEMP 36.3; O2SAT 95
[2024-05-09 06:32] LABS: Hematocrit 35.6 % (37.0-47.0); Hemoglobin 11.1 g/dL (12.0-15.0); Mean Corpuscular HGB Conc 31.2 g/dl (32-36); Mean Corpuscular Hemoglobin 32.2 pg (26-34); Mean Corpuscular Volume 103.2 fl (80-100); Mean Platelet Volume 8.3 fl (7.4-10.4); Platelet Count Result 505 k/mm3 (150-375); Red Blood Count 3.45 M/mm3 (4.2-5.4); Red Cell Distribution Width 12.5 % (11.5-14.5); White Blood Count 5.1 K/mm3 (4.5-10.0)
[2024-05-09] MEDS: LEVOTHYROXINE SODIUM 50 MCG TABLET PO (06:41)
[2024-05-09 06:49] LABS: Anion Gap 6 mmol/L (4-12); Blood Urea Nitrogen 14 mg/dL (7-17); Calcium 8.7 mg/dL (8.4-10.2); Carbon Dioxide 27 mmol/L (22-30); Chloride 104 mmol/L (98-107); Estimated CRCL calculation 34 ml/min; Estimated Glomerular Filt Rate 58; Glucose 99 mg/dL (65-110); Potassium 4.3 mmol/L (3.4-5.0); Sodium 137 mmol/L (137-145)
--- NOTE | 2024-05-09 09:13 | PM.IMPN ---
Progress Note: A&P Assessment and Plan (1) Osteoporosis: Code(s): M81.0 - Age-related osteoporosis without current pathological fracture Status: Acute (2) Abnormal urinalysis: Code(s): R82.90 - Unspecified abnormal findings in urine Status: Acute (3) Acute UTI: Code(s): N39.0 - Urinary tract infection, site not specified Status: Acute (4) Sepsis: Qualifiers: Sepsis acute organ dysfunction status: without acute organ dysfunction Sepsis type: sepsis due to unspecified organism Qualified Code(s): A41.9 - Sepsis, unspecified organism Code(s): A41.9 - Sepsis, unspecified organism Status: Acute Plan Rhabdomyolysis: Qualifiers: Rhabdomyolysis type: non-traumatic Qualified Code(s): M62.82 - Rhabdomyolysis Code(s): M62.82 - Rhabdomyolysis Status: Acute Assessment and Plan: Patient with diffuse lower extremity bilateral pain. She was found to have a right knee effusion which was tapped. She denies back pain. She has low-grade fever and was mildly tachycardic but no elevated white count. Total CK is 1052 consistent with mild rhabdomyolysis. Repeat level trending downward. dc IV fluid today 05/01 Resolved Acute knee pain: Qualifiers: Laterality: right Qualified Code(s): M25.561 - Pain in right knee Code(s): M25.569 - Pain in unspecified knee Status: Acute Assessment and Plan: Patient with right knee pain with imaging showing effusion. She had 5000 red cells and 15,000 white cells that were 88% neutrophils. No crystals. Gram stain showing many WBC but no MO. She is with diffuse LE symptoms but doubt disseminated gonococcal WBC <20K and no trauma so will add Vanco for MRSA coverage. Ortho consulted and appreciate their input. Follow up on culture results: No growth Orthopedic surgeon performed arthroscopic, patient found having Meniscal tear, I and D was performed on 05/03 Continue PT OT and behavioral health care manager for evaluation and assisting placement Constipation Likely secondary to immobility and narcotic medication Start Senokot S 2 tablets b.i.d. p.o., MiraLax 1 packet daily Has bowel movements regularly Acute UTI: Code(s): N39.0 - Urinary tract infection, site not specified Status: Acute Assessment and Plan: UA is consistent with UTI. UCx collected. Rocephin started. UCx growing EColi. Follow up on UCx results. change to oral antibiotic Augmentin today till May 05 per ID pharmacist recommendation 05/03 Completed the antibiotics treatment Asymptomatic now (4) Effusion of right knee: Code(s): M25.461 - Effusion, right knee Status: Acute Assessment and Plan: As above sepsis Fever: Qualifiers: Fever type: due to other condition Qualified Code(s): R50.81 - Fever presenting with conditions classified elsewhere Code(s): R50.9 - Fever, unspecified Status: Acute Assessment and Plan: Related to above. Resolved Lightheadedness Blood pressure on the lower side today Start normal saline IV 100 mL/hour 05/04 Order orthostatic test: Positive orthostatic hypotension Start midodrine 2.5 mg t.i.d. p.o. apply compression socks, discontinue normal saline 05/04 Increase midodrine 5 mg t.i.d. p.o. 05/05 Improves significantly, continue current treatment 05/08 Patient had lightheadedness in the morning, blood pressure soft. Increase midodrine 10 mg t.i.d. p.o. 05/09 Plan Hypothyroidism - TSH Normal. Macrocytosis - Check b12/folate Code status - full DVT prophylaxis - Lovenox Consult PT OT, behavioral health care manager for evaluation and assisting placement Subjective Date/time seen: 05/09/24 09:13 Interval history: Patient feels better today, has right knee pain that is improving. Patient has had lightheadedness in the morning, blood pressure soft. Denies focal weakness. Patient had a bowel movement yesterday and today Exam Narrative: GENERAL: Pleasant, in no acute distress. Well-nourished. - EYES: EOMI. Anicteric. - HENT: Moist mucous membranes. - LUNGS: Clear to auscultation bilaterally, no wheezing, rhonchi, or rales. - CARDIOVASCULAR: Regular rate and rhythm. No murmur. No JVD. - ABDOMEN: Soft, non-tender and non-distended. No palpable masses. - EXTREMITIES: Pain with passive ROM to the lower extremities. Bilateral knee pain with passive movement. Right knee surgical wound is well dressed, - NEUROLOGIC: No focal neurological deficits. CN II-XII grossly intact. - PSYCHIATRIC: Awake, Alert and oriented x 3. Appropriate mood and affect. - SKIN: No rashes or lesions. Warm. - LYMPH: No cervical lymphadenopathy. Objective Data Vital Signs Vital Signs: Vital Signs - 24 hr 05/08/24 12:42 05/08/24 14:00 05/08/24 20:00 Temperature 98.8 F Pulse Rate 54 L Respiratory Rate 18 Blood Pressure 107/52 L 113/64 Pulse Oximetry 97 Oxygen Delivery Room Air 05/08/24 21:18 05/09/24 05:42 Temperature 97.8 F 97.4 F L Pulse Rate 86 71 Respiratory Rate 14 20 Blood Pressure 105/41 L 103/45 L Pulse Oximetry 96 95 Oxygen Delivery Intake/Output Intake/Output: Intake & Output 05/06/24 05/07/24 05/08/24 05/09/24 23:59 23:59 23:59 23:59 Intake Total 770 1517 1630 125 Output Total 400 200 350 150 Balance 370 1317 1280 -25 Meds/Results Medications: Active Medications Generic Name Dose Route Start Last Admin Trade Name Freq PRN Reason Stop Dose Admin Acetaminophen 650 mg 04/29/24 18:53 05/03/24 08:58 Acetaminophen 325 Mg Tablet PO 650 mg Q4H PRN Administration Mild Pain (1-3) or Fever Hydrocodone Bitart/Acetaminophen 1 tab 04/29/24 18:53 05/09/24 03:09 Hydrocodone/Acetaminophen (*Crx) 5-325 Mg Tablet PO 1 tab Q4H PRN Administration Pain Rated 4-10 Enoxaparin Sodium 30 mg 05/07/24 18:00 05/08/24 20:03 Enoxaparin 30 Mg/0.3 Ml Syringe SUB-Q Not Given QPM MANJU Famotidine 20 mg 04/30/24 09:00 05/08/24 20:54 Famotidine 20 Mg Tablet PO 20 mg Q12HR MANJU Administration Levothyroxine Sodium 50 mcg 04/30/24 06:30 05/09/24 06:41 Levothyroxine Sodium 50 Mcg Tablet PO 50 mcg DAILY@0630 MANJU Administration Midodrine 5 mg 05/05/24 17:00 05/08/24 17:46 Midodrine Hcl 2.5 Mg Tablet PO 5 mg TID MANJU Administration Miscellaneous Information 1 each 05/09/24 00:01 05/08/24 22:09 [place] Needs To Be Renewed Or It Will Automatically Discontinue XX 06/08/24 00:00 Not Given CLARIFY MANJU Ondansetron HCl 4 mg 05/08/24 12:26 05/08/24 12:40 Ondansetron Hcl Odt 4 Mg Tablet PO 4 mg Q6H PRN Administration Nausea And Vomiting Polyethylene Glycol 17 gm 05/07/24 09:00 05/08/24 08:50 Polyethylene Glycol 3350 17 Gm Powd.Pack PO 17 gm DAILY MANJU Administration Senna/Docusate Sodium 2 tab 05/06/24 14:30 05/08/24 17:46 Senna/Docusate Sodium Tablet PO 2 tab BID MANJU Administration Radiology Results: ITS Impressions Chest X-Ray 04/29/24 13:07 IMPRESSION: No acute cardiopulmonary pathology. Hip/Pelvis X-Ray 04/29/24 14:13 IMPRESSION: 1. Mild osteoarthritis of the hips. Knee X-Ray 04/29/24 14:15 IMPRESSION: No acute osseous abnormality right knee. Chondrocalcinosis. Mild to moderate osteoarthritic changes. Ankle X-Ray 04/30/24 20:28 IMPRESSION: Degenerative disease and diffuse bony demineralization without acute fracture. Knee MRI 05/01/24 12:59 IMPRESSION: 1. Complex lateral meniscal tear with macerated appearance of the meniscal body and no discernible anterior horn suggesting significant secondary displacement or degeneration of the meniscal tissue. 2. 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 3. Scarring consistent with chronic sprain of the proximal fibular collateral ligament. 4. Mild tendinopathy without tears at the quadriceps and popliteal tendons. 5. Likely reactive moderate sized right knee joint effusion. Labs Labs: Laboratory Results - last 24 hr 05/09/24 06:18 WBC 5.1 RBC 3.45 L Hgb 11.1 L Hct 35.6 L MCV 103.2 H MCH 32.2 MCHC 31.2 L RDW 12.5 Plt Count 505 H MPV 8.3 Sodium 137 Potassium 4.3 Chloride 104 Carbon Dioxide 27 Anion Gap 6 BUN 14 Creatinine 0.92 Estim Creat Clear Calc 34 Estimated GFR 58 L Glucose 99 Calcium 8.7 Blood Type O Positive Antibody Screen Negative
[2024-05-09] MEDS: SENNA/DOCUSATE SODIUM TABLET 2 TAB PO ×2 (09:44→17:50)
[2024-05-09] MEDS: FAMOTIDINE 20 MG TABLET PO ×2 (09:44→21:02)
[2024-05-09] MEDS: polyethylene glycoL 3350 17 GM POWD.PACK PO (09:44)
[2024-05-09] MEDS: MIDODRINE HCL 10 MG TABLET PO ×2 (12:49→17:50)
[2024-05-09 14:00] VITALS: BP 126/54; PULSE 71; RESP 18; TEMP 36.6; O2SAT 98
[2024-05-09] MEDS: ENOXAPARIN 30 MG/0.3 ML SYRINGE SUB-Q (17:50)
--- NOTE | 2024-05-09 19:01 | PC.NURSE ---
Dsg changed to right knee with Telfa and tegaderm. Inc sites well approximated without drainage. Pt offers no complaints.
[2024-05-09 20:00] VITALS: PULSE 68; RESP 20; O2SAT 97
[2024-05-09] MEDS: ACETAMINOPHEN 325 MG TABLET 650 MG PO (21:02)
[2024-05-09 21:10] VITALS: BP 154/64; PULSE 68; RESP 20; TEMP 36.9; O2SAT 97
[2024-05-10 05:30] VITALS: BP 145/56; PULSE 59; RESP 20; TEMP 35.9; O2SAT 96
[2024-05-10] MEDS: LEVOTHYROXINE SODIUM 50 MCG TABLET PO (05:55)
--- NOTE | 2024-05-10 09:08 | P.PNIM_ITS ---
Progress Note: A&P Assessment and Plan (1) Osteoporosis: Code(s): M81.0 - Age-related osteoporosis without current pathological fracture Status: Acute (2) Abnormal urinalysis: Code(s): R82.90 - Unspecified abnormal findings in urine Status: Acute (3) Acute UTI: Code(s): N39.0 - Urinary tract infection, site not specified Status: Acute (4) Sepsis: Qualifiers: Sepsis acute organ dysfunction status: without acute organ dysfunction Sepsis type: sepsis due to unspecified organism Qualified Code(s): A41.9 - Sepsis, unspecified organism Code(s): A41.9 - Sepsis, unspecified organism Status: Acute Plan Rhabdomyolysis: Qualifiers: Rhabdomyolysis type: non-traumatic Qualified Code(s): M62.82 - Rhabdomyolysis Code(s): M62.82 - Rhabdomyolysis Status: Acute Assessment and Plan: Patient with diffuse lower extremity bilateral pain. She was found to have a right knee effusion which was tapped. She denies back pain. She has low-grade fever and was mildly tachycardic but no elevated white count. Total CK is 1052 consistent with mild rhabdomyolysis. Repeat level trending downward. dc IV fluid today 05/01 Resolved Acute knee pain: Qualifiers: Laterality: right Qualified Code(s): M25.561 - Pain in right knee Code(s): M25.569 - Pain in unspecified knee Status: Acute Assessment and Plan: Patient with right knee pain with imaging showing effusion. She had 5000 red cells and 15,000 white cells that were 88% neutrophils. No crystals. Gram stain showing many WBC but no MO. She is with diffuse LE symptoms but doubt disseminated gonococcal WBC <20K and no trauma so will add Vanco for MRSA coverage. Ortho consulted and appreciate their input. Follow up on culture results: No growth Orthopedic surgeon performed arthroscopic, patient found having Meniscal tear, I and D was performed on 05/03 Continue PT OT and intensive care ambulance paramedic for evaluation and assisting placement Constipation Likely secondary to immobility and narcotic medication Start Senokot S 2 tablets b.i.d. p.o., MiraLax 1 packet daily Has bowel movements regularly Acute UTI: Code(s): N39.0 - Urinary tract infection, site not specified Status: Acute Assessment and Plan: UA is consistent with UTI. UCx collected. Rocephin started. UCx growing EColi. Follow up on UCx results. change to oral antibiotic Augmentin today till May 05 per ID pharmacist recommendation 05/03 Completed the antibiotics treatment Asymptomatic now (4) Effusion of right knee: Code(s): M25.461 - Effusion, right knee Status: Acute Assessment and Plan: As above sepsis Fever: Qualifiers: Fever type: due to other condition Qualified Code(s): R50.81 - Fever presenting with conditions classified elsewhere Code(s): R50.9 - Fever, unspecified Status: Acute Assessment and Plan: Related to above. Resolved Lightheadedness Blood pressure on the lower side today Start normal saline IV 100 mL/hour 05/04 Order orthostatic test: Positive orthostatic hypotension Start midodrine 2.5 mg t.i.d. p.o. apply compression socks, discontinue normal saline 05/04 Increase midodrine 5 mg t.i.d. p.o. 05/05 Improves significantly, continue current treatment 05/08 Patient had lightheadedness in the morning, blood pressure soft. Increase midodrine 10 mg t.i.d. p.o. 05/09 Now blood pressure stable, patient has no lightheadedness. Continue midodrine and compression socks Plan Hypothyroidism - TSH Normal. Macrocytosis - Check b12/folate Code status - full DVT prophylaxis - Lovenox Consult PT OT, intensive care ambulance paramedic for evaluation and assisting placement. Patient is accepted by [facility] Subjective Date/time seen: 05/10/24 09:08 Interval history: Patient feels better, knee pain is tolerable on pain medication management Denies focal weakness. Patient denies lightheadedness, denies chest pain abdomen pain nausea vomiting patient blood pressure stable patient afebrile Exam Narrative: GENERAL: Pleasant, in no acute distress. Well-nourished. - EYES: EOMI. Anicteric. - HENT: Moist mucous membranes. - LUNGS: Clear to auscultation bilateral ly, no wheezing, rhonchi, or rales. - CARDIOVASCULAR: Regular rate and rhyth m. No murmur. No JVD. - ABDOMEN: Soft, non-tender and non-dist ended. No palpable masses. - EXTREMITIES: Pain with passive ROM t o the lower extremities. Bilateral knee pain with passive movement. Right knee surgical wound is well dressed, - NEUROLOGIC: No focal neurological defi cits. CN II-XII grossly intact. - PSYCHIATRIC: Awake, Alert and oriented x 3. Appropriate mood and affect. - SKIN: No rashes or lesions. Warm. - LYMPH: No cervical lymphadenopathy. Objective Data Vital Signs Vital Signs: Vital Signs - 24 hr 05/09/24 14:00 05/09/24 20:00 05/09/24 21:10 Temperature 97.8 F 98.4 F Pulse Rate 71 68 68 Respiratory Rate 18 20 20 Blood Pressure 126/54 L 154/64 H Pulse Oximetry 98 97 97 Oxygen Delivery Room Air 05/10/24 05:30 Temperature 96.6 F L Pulse Rate 59 L Respiratory Rate 20 Blood Pressure 145/56 H Pulse Oximetry 96 Oxygen Delivery Intake/Output Intake/Output: Intake & Output 05/07/24 05/08/24 05/09/24 05/10/24 23:59 23:59 23:59 23:59 Intake Total 1517 1630 1725 300 Output Total 200 350 150 Balance 1317 1280 1575 300 Meds/Results Medications: Active Medications Generic Name Dose Route Start Last Admin Trade Name Freq PRN Reason Stop Dose Admin Acetaminophen 650 mg 04/29/24 18:53 05/09/24 21:02 Acetaminophen 325 Mg Tablet PO 650 mg Q4H PRN Administration Mild Pain (1-3) or Fever Enoxaparin Sodium 40 mg 05/10/24 18:00 Enoxaparin 40 Mg/0.4 Ml Syringe SUB-Q QPM MANJU Famotidine 20 mg 04/30/24 09:00 05/09/24 21:02 Famotidine 20 Mg Tablet PO 20 mg Q12HR MANJU Administration Levothyroxine Sodium 50 mcg 04/30/24 06:30 05/10/24 05:55 Levothyroxine Sodium 50 Mcg Tablet PO 50 mcg DAILY@0630 MANJU Administration Midodrine 10 mg 05/09/24 13:00 05/09/24 17:50 Midodrine Hcl 10 Mg Tablet PO 10 mg TID MANJU Administration Miscellaneous Information 1 each 05/09/24 00:01 05/08/24 22:09 [place] Needs To Be Renewed Or It Will Automatically Discontinue XX 06/08/24 00:00 Not Given CLARIFY MANJU Ondansetron HCl 4 mg 05/08/24 12:26 05/08/24 12:40 Ondansetron Hcl Odt 4 Mg Tablet PO 4 mg Q6H PRN Administration Nausea And Vomiting Polyethylene Glycol 17 gm 05/07/24 09:00 05/09/24 09:44 Polyethylene Glycol 3350 17 Gm Powd.Pack PO 17 gm DAILY MANJU Administration Senna/Docusate Sodium 2 tab 05/06/24 14:30 05/09/24 17:50 Senna/Docusate Sodium Tablet PO 2 tab BID MANJU Administration Radiology Results: ITS Impressions Chest X-Ray 04/29/24 13:07 IMPRESSION: No acute cardiopulmonary pathology. Hip/Pelvis X-Ray 04/29/24 14:13 IMPRESSION: 1. Mild osteoarthritis of the hips. Knee X-Ray 04/29/24 14:15 IMPRESSION: No acute osseous abnormality right knee. Chondrocalcinosis. Mild to moderate osteoarthritic changes. Ankle X-Ray 04/30/24 20:28 IMPRESSION: Degenerative disease and diffuse bony demineralization without acute fracture. Knee MRI 05/01/24 12:59 IMPRESSION: 1. Complex lateral meniscal tear with macerated appearance of the meniscal body and no discernible anterior horn suggesting significant secondary displacement or degeneration of the meniscal tissue. 2. 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 3. Scarring consistent with chronic sprain of the proximal fibular collateral ligament. 4. Mild tendinopathy without tears at the quadriceps and popliteal tendons. 5. Likely reactive moderate sized right knee joint effusion.
--- NOTE | 2024-05-10 09:08 | P.DS_ITS ---
DS: Admitting Diagnosis Discharge Date 05/10 Admitting Diagnosis (1) Osteoporosis: Code(s): M81.0 - Age-related osteoporosis without current pathological fracture Status: Acute (2) Abnormal urinalysis: Code(s): R82.90 - Unspecified abnormal findings in urine Status: Acute (3) Acute UTI: Code(s): N39.0 - Urinary tract infection, site not specified Status: Acute (4) Sepsis: Qualifiers: Sepsis acute organ dysfunction status: without acute organ dysfunction Sepsis type: sepsis due to unspecified organism Qualified Code(s): A41.9 - Sepsis, unspecified organism Code(s): A41.9 - Sepsis, unspecified organism Status: Acute DS: Discharge Diagnosis Discharge Diagnosis (1) Osteoporosis: Code(s): M81.0 - Age-related osteoporosis without current pathological fracture Status: Acute (2) Abnormal urinalysis: Code(s): R82.90 - Unspecified abnormal findings in urine Status: Acute (3) Acute UTI: Code(s): N39.0 - Urinary tract infection, site not specified Status: Acute (4) Sepsis: Qualifiers: Sepsis type: sepsis due to unspecified organism Sepsis acute organ dysfunction status: without acute organ dysfunction Qualified Code(s): A41.9 - Sepsis, unspecified organism Code(s): A41.9 - Sepsis, unspecified organism Status: Acute DS: Summary Hospital Course Hospital Course: Per H&P 88-year-old female with a past medical history of 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 The patient is alert orient to person, place and year. She is confused as to the month and thinks that it is June. She reports that she does have some memory difficulties that her mild. She has difficulty communicating her symptoms and is unclear if this is due to some of her confusion verses mild language barrier. The patient is originally from the [facility] nursing staff stated the patient's provided all significant information P The patient was so weak that the family had been moving the patient around the house by dragging her on a sheet. Patient has been having weakness for 18 months but has been unable to walk for 1 week. She tells me that she has intermittent upper abdominal pain that is severe when it occurs. She cannot provide any eliciting or relieving factors. He states last week or so. Still had a bowel movement. She denies any dysuria or increased urinary frequency or hematuria. She denies Melena or hematochezia. The reported the patient had been having left hip pain for 1 week but had not had a fall prior to yesterday. The patient states that she has been so weak she has not been able to remove around for the last week. She reports generalized muscle pains of her legs. She reports to me that her feet and ankles hurt. Initially she stated the pain was on the top of her foot but on exam patient has significant pain with dorsiflexion and worsened pain with active plantar flexion of bilateral feet. Pain is in the ball of the feet bilaterally. She denied any fevers or chills but in the ER was noted to have a fever of 100.5. She denies any respiratory symptoms. She reports she significant fatigue. The following med issues have been addressed during hospitalization Rhabdomyolysis: Qualifiers: Rhabdomyolysis type: non-traumatic Qualified Code(s): M62.82 - Rhabdo myolysis Code(s): M62.82 - Rhabdomyolysis Status: Acute Assessment and Plan: Patient with diffuse lower extremity bilateral pain. She was found to have a right knee effusion which was tapped. She denies back pain. She has low-grade fever and was mildly tachycardic but no elevated white count. Total CK is 1052 consistent with mild rhabdomyolysis. Repeat level trending downward. dc IV fluid today 05/01 Resolved Acute knee pain: Qualifiers: Laterality: right Qualified Code(s): M25.561 - Pain in right knee Code(s): M25.569 - Pain in unspecified knee Status: Acute Assessment and Plan: Patient with right knee pain with imaging showing effusion. She had 5000 red cells and 15,000 white cells that were 88% neutrophils. No crystals. Gram stain showing many WBC but no MO. She is with diffuse LE symptoms but doubt disseminated gonococcal WBC <20K and no trauma so will add Vanco for MRSA coverage. Ortho consulted and appreciate their input. Follow up on culture results: No growth Orthopedic surgeon performed arthroscopic, patient found having Meniscal tear, I and D was performed on 05/03 Continue PT OT and primary care nurse practitioner for evaluation and assisting placement Constipation Likely secondary to immobility and narcotic medication Start Senokot S 2 tablets b.i.d. p.o., MiraLax 1 packet daily Has bowel movements regularly Acute UTI: Code(s): N39.0 - Urinary tract infection, site not specified Status: Acute Assessment and Plan: UA is consistent with UTI. UCx collected. Rocephin started. UCx growing EColi. Follow up on UCx results. change to oral antibiotic Augmentin today till May 05 per ID pharmacist recommendation 05/03 Completed the antibiotics treatment Asymptomatic now (4) Effusion of right knee: Code(s): M25.461 - Effusion, right knee Status: Acute Assessment and Plan: As above sepsis Fever: Qualifiers: Fever type: due to other condition Qualified Code(s): R50.81 - Fever presenting with conditions classified elsewhere Code(s): R50.9 - Fever, unspecified Status: Acute Assessment and Plan: Related to above. Resolved Lightheadedness Blood pressure on the lower side today Start normal saline IV 100 mL/hour 05/04 Order orthostatic test: Positive orthostatic hypotension Start midodrine 2.5 mg t.i.d. p.o. apply compression socks, discontinue normal saline 05/04 Increase midodrine 5 mg t.i.d. p.o. 05/05 Improves significantly, continue current treatment 05/08 Patient had lightheadedness in the morning, blood pressure soft. Increase midodrine 10 mg t.i.d. p.o. 05/09 Now blood pressure stable, patient has no lightheadedness. Continue midodrine and compression socks Consult PT OT, primary care nurse practitioner for evaluation and assisting placement. Patient is accepted by [facility] for rehab Time Spent with Patient Time attestation: Total time spent providing and/or coordinating discharge services: Exam Narrative: GENERAL: Pleasant, in no acute distress. Well-nourished. - EYES: EOMI. Anicteric. - HENT: Moist mucous membranes. - LUNGS: Clear to auscultation bilateral ly, no wheezing, rhonchi, or rales. - CARDIOVASCULAR: Regular rate and rhyth m. No murmur. No JVD. - ABDOMEN: Soft, non-tender and non-dist ended. No palpable masses. - EXTREMITIES: Pain with passive ROM t o the lower extremities. Bilateral knee pain with passive movement. Right knee surgical wound is well dressed, - NEUROLOGIC: No focal neurological defi cits. CN II-XII grossly intact. - PSYCHIATRIC: Awake, Alert and oriented x 3. Appropriate mood and affect. - SKIN: No rashes or lesions. Warm. - LYMPH: No cervical lymphadenopathy. DS: Data Data Completed and Pending Labs on day of discharge: Preliminary micro results at discharge 04/29/24 14:58 Anaerobic Culture - Preliminary Synovial Fluid Right Knee Aerobic Culture - Preliminary Discharge Plan Discharge Attending physician on discharge: Javon Nguyen Consulting providers: John Flores Discharging Clinician: Javon Nguyen Anticipated Discharge Date/Time: 05/10/24 09:08 Patient Disposition: SNF Activity: as tolerated and follow weight bearing status Diet: as tolerated and heart healthy Patient Language: Kiswahili Stand Alone Forms: General Discharge Information Follow-up/Referrals: Frederic Regalado, [Primary Care Provider] - (Patient needs see primary care doctor in 1 week) Discharge Medications: New hydrocodone-acetaminophen 5-325 mg Tablet 1 tablet PO Q6H PRN (Reason: Pain Rated 4-10) Qty: 20 0RF sennosides-docusate sodium [Senokot-S] 8.6-50 mg Tablet 1 tab PO BID Qty: 60 0RF polyethylene glycol 3350 [Miralax] 17 gram Powder In Packet 17 g PO DAILY Qty: 30 0RF famotidine 20 mg Tablet 20 mg PO Q12HR Qty: 60 0RF midodrine 10 mg Tablet 10 mg PO TID Qty: 90 0RF hydrocodone-acetaminophen 5-325 mg Tablet 1 tablet PO Q4H PRN (Reason: Pain Rated 4-6) Qty: 14 0RF Continued ibandronate 150 mg tablet 150 mg PO MONTHLY levothyroxine 50 mcg tablet 50 mcg PO DAILY Qty: 60 0RF Date of admission: 04/30/24 09:44 Primary Care Provider: Frederic Regalado Admitting Provider: Sam Jaquez Attending physician on admission: Sam Jaquez Condition: Stable
[2024-05-10] MEDS: FAMOTIDINE 20 MG TABLET PO (09:24)
[2024-05-10] MEDS: MIDODRINE HCL 10 MG TABLET PO (09:24)
[2024-05-10] MEDS: polyethylene glycoL 3350 17 GM POWD.PACK PO (09:25)
[2024-05-10] MEDS: SENNA/DOCUSATE SODIUM TABLET 2 TAB PO (09:25)
== END 2024-05-10 12:05 | DRG 854 ==
LOC: ANHED 18:58 → ANH3MEDSUR 20:00
PROVIDERS: Emergency Medicine; Internal Medicine; Orthopaedic Surgery; Admitting Provider General Practice; Emergency Provider Emergency Medicine; PCP Family Medicine; Visit Provider Hospitalist
PROC: 0SBC4ZZ Excision of Right Knee Joint, Percutaneous Endoscopic Approach (ICD-10-PCS; CPT 29870; principal; 2024-05-02 10:00)
DX: A41.9 Sepsis, unspecified organism (principal); N39.0 Urinary tract infection, site not specified; K59.00 Constipation, unspecified; M25.461 Effusion, right knee; E78.5 Hyperlipidemia, unspecified; E03.9 Hypothyroidism, unspecified; E86.0 Dehydration; M81.0 Age-related osteoporosis without current pathological fracture; M54.16 Radiculopathy, lumbar region; B96.20 Unspecified Escherichia coli [E. coli] as the cause of diseases classified elsewhere; I95.1 Orthostatic hypotension; Z20.822 Contact with and (suspected) exposure to COVID-19; Z85.3 Personal history of malignant neoplasm of breast; Z87.891 Personal history of nicotine dependence; Z87.11 Personal history of peptic ulcer disease
CPT/HCPCS: 20610; 36415; 71045; 73502; 73562; 73610; 73721; 80048; 80053; 81001; 82550; 82565; 82607; 82746; 82945; 84145; 84157; 84443; 84484; 84550; 85025; 85027; 85652; 86140; 86850; 86900; 86901; 87040; 87070; 87075; 87086; 87186; 87205; 87637; 89051; 89060; 93005; 96361; 96365; 96375; 96376; 97110; 97116; 97162; 97166; 97530; 97535; 99285; A9270; G0378; J0360; J0696; J1100; J1650; J2003; J2004; J2270; J2405; J2704; J3010; J3370; J7030; J7120

== ENCOUNTER 2024-06-26 16:53 | Inpatient (IN) | payer OTHER, SELFPAY ==
--- NOTE | ~2024-06-26 | MR_ITS ---
EXAMINATION: MR brain/brain stem wo/w con DATE: 06/27/2024 15:00 INDICATION: Encephalopathy TECHNIQUE: Magnetic resonance imaging (MRI) of the brain and brainstem was performed without and with 11 mL ProHance intravenous contrast. Sequences included sagittal and axial T1-weighted SE, axial dif fusion-weighted FS SE, axial T2*-weighted GRE, axial 3D SWAN, axial T2-weighted FLAIR, and axial T2-w eighted FSE. Postcontrast axial and coronal T1-weighted SE was obtained. Apparent diffusion coefficie nt (ADC) maps were created. COMPARISON: Head CT dated 06/26/2024 FINDINGS: There are no areas of restricted diffusion to suggest acute infarction. No intracranial hemorrhage or abnormal intracranial mass lesion. There are scattered areas of nonspecific increased T2-weighted si gnal intensity in the cerebral white matter, predominantly involving the deep and periventricular whi te matter which is within normal limits for age and likely sequela of chronic small vessel ischemic d isease. There are no intraparenchymal signal abnormalities seen on the other pulse sequences. The douglas tricles are symmetric and normal in size. There are no abnormal extra-axial fluid collections. Flow v oids are seen in the cerebral arteries on the T2-weighted sequences consistent with their expected pa tency. Changes of bilateral intraocular lens replacement. Mild mucosal thickening in the paranasal s inuses. There are no areas of abnormal enhancement on the post contrast images. IMPRESSION: 1. No acute intracranial process no abnormally enhancing brain lesions. 2. Normal aging brain with moderate nonspecific periventricular predominant white matter T2 hyperinte nsity consistent with chronic small vessel ischemic disease. Reviewed, dictated and finalized at location B. IMPRESSION: 1. No acute intracranial process no abnormally enhancing brain lesions. 2. Normal aging brain with moderate nonspecific periventricular predominant whi te matter T2 hyperintensity consistent with chronic small vessel ischemic disea se.
--- NOTE | ~2024-06-26 | XR_ITS ---
XR chest 2V Ordering provider: Fuentes Cantu MD History: 89 years Female with . DIZZINESS/AMS . Comparison: May 19, 2024 FINDINGS: MEDIASTINUM: The cardiac silhouette is not enlarged. LUNGS: No infiltrates, effusions or pneumothorax. Rounded opacity is seen in the right lower lobe whi ch may be summation shadow. Follow-up in 3 months advised. Interstitial thickening in the left mid zo ne is noted. OTHER: No free air under the diaphragm. Degenerative changes of the spine. IMPRESSION: Interstitial thickening in the left midzone unchanged. Possible rounded opacity in the right lower lo be which may be summation shadow. A repeat exam in 3 months is advised. Otherwise, No acute cardiopulmonary pathology. Reviewed, dictated and finalized at location A. IMPRESSION: Interstitial thickening in the left midzone unchanged. Possible rounded opacity in the right lower lobe which may be summation shadow. A repeat exam in 3 varsha hs is advised. Otherwise, No acute cardiopulmonary pathology.
--- NOTE | ~2024-06-26 | CT_ITS ---
CT brain wo con Ordering provider: Fuentes Cantu MD History: 89 years Female with . ams . Comparison: July 17, 2012 Technique: CT of the head without contrast. Radiation reduction technique utilized.The dose-length pr oduct was 681.00 mGy-cm. FINDINGS: BRAIN PARENCHYMA AND CSF SPACES: Mild leukoaraiosis and diffuse cortical atrophy. Mild atheromatous d isease. No midline shift, mass effect or hemorrhage. The brain parenchyma and CSF spaces are otherwi se normal. VISUALIZED PARANASAL SINUSES: Bilateral anterior ethmoid sinus disease. Otherwise, Well aerated. MASTOIDS: Well aerated. BONES: The bones appear intact. SOFT TISSUES: Visualized nasopharynx is normal. Superficial soft tissues are normal. IMPRESSION: No acute intracranial findings. Reviewed, dictated and finalized at location A.
[2024-06-26 16:54] VITALS: BP 196/93; PULSE 90; RESP 16; TEMP 36.4; O2SAT 100
--- OUTSIDE RECORDS SUMMARY | 2024-06-26 16:55 | XMS_ITS ---
Author Organization [facility] Address [address] [place] [address] Phone Care Team Providers Care Life Tester [employer] Name Role Phone Brigitte Michael MD PhD Unavaila ble Shira Gold NP Unavailable [phone] Leora Bullock MD Unavailable [phone] Frederic Regalado DO Primary Care Provider [phone] Active Problems Problem Noted Date Diagnosed Date Medicare annual wellness visit, subsequent 03/21 Assessment & Plan (03/21/2023 1:02 PM MACHINE STRIPER): A yearly Medicare Annual Wellness Visit has [...] style. Suggested using shampoo Nioxin #3 same centrifuge separator tender in his scalp treatment. Told her it would take about 3 months for this to start working and she should see new hair growth. Also suggested seen a hot mill operator in regards to this problem. History of breast cancer 01/19/2021 Personal history of radiation therapy 11/25/2020 History of 2019 novel coronavirus disease (COVID -19) 02/23/2020 Bilateral hearing loss 01/22/2020 Assessment & Plan (02/07/2021 5:21 PM MACHINE STRIPER): Monitor hearing for change. Let provider know if change. Assessment & Plan (01/22/2020 3:39 PM MACHINE STRIPER): Have Eye Evaluation Hearing test and [facility] BMI 21.0-21.9, adult 01/06/2020 Assessment & Plan (02/07/2021 5:20 PM MACHINE STRIPER): Watch diet, eat 3 meals a day or 6 small meals a day. Use fortified cereals or shakes. Weight weekly. Make sure you are drinking adequate fluids. Age-related osteoporosis wit hout current pathological fracture 01/06/2020 Assessment & Plan (01/06/2020 1:34 PM MACHINE STRIPER): On Fosamax, will refill. Patient due for another bone density study. Order placed. Arthralgia of multiple joints 01/06/2020 Assessment & Plan (03/21/2023 1:01 PM MACHINE STRIPER): Continues topical Voltaren prn. Discussed oral medications but want to check labs first. Also suggested Collagen Peptides. Assessment & Plan (02/07/2021 5:26 PM MACHINE STRIPER): Talked about bilateral knee pain and options to care. Encouraged not to do keep knee bends, squatting, kneeling on knees. Exercise gently not to injur knees more. Topical OTC meds discussed for joint pain. Also talked about shoes and avoiding wearing high heels. Assessment & Plan (01/06/2020 1:34 PM MACHINE STRIPER): Zujg-ndp-rdwfobz pain relievers or choice recommended. Jblzn-rl-uwrsyy exercises encouraged. Essential hypertension 01/06/2020 Assessment & Plan (09/19/2023 1:44 PM CDT): BP in good shape. Updated labs ordered. Assessment & Plan (03/21/2023 1:01 PM MACHINE STRIPER): BP in good shape. Updated labs ordered. Assessment & Plan (05/18/2021 10:31 PM CDT): Continue with high blood pressure medication as ordered. Watch diet for added salt or salty food. Exercise for 30 minutes 3 times a week as tolerated Suggested doing some long bone exercises. Assessment & Plan (02/07/2021 5:19 PM MACHINE STRIPER): Continue medications as directed. Watch diet for salt, avoid adding salt. Monitor BP at home daily, minimum of 3 times a week. Exercise as tolerated 3 times a week. Assessment & Plan (01/06/2020 11:13 AM MACHINE STRIPER): Trial of lisinopril 2.5 mg once a [...] 07/14/2020 Assessment & Plan (02/07/2021 5:23 PM MACHINE STRIPER): Continue with oncology as advised by specialty. Continue with meds as directed. Assessment & Plan (01/12/2020 7:59 PM MACHINE STRIPER): On Arimidex. Managed by oncology Current Treatment and Therapy Plans No current plan information found. Past Treatment and Therapy Plans No past plan information found. Radiation Treatments (No Episode) * Course C1 LTMULBRS 202009/07/2020 - 10/16/2020 [...] 03/2020 Assessment & Plan (01/22/2020 3:39 PM MACHINE STRIPER): Have Eye Evaluation Hearing test and [facility] - [facility] Assessment & Plan (01/06/2020 1:33 PM MACHINE STRIPER): No dizziness today. Referred to ENT for further evaluation and management.
--- OUTSIDE RECORDS SUMMARY | 2024-06-26 16:55 | XMS_ITS | Referral Summary ---
Author Organization [facility] Address [address] [place] [address] Phone Care Team Providers Care Telesales Supervisor Name Role Phone Brigitte Michael MD PhD Unavaila ble Shira Gold NP Unavailable [phone] Leora Bullock MD Unavailable [phone] Frederic Regalado DO Primary Care Provider [phone] Encounters Date Type Department Care Team Description 06/06/2024 Telephone [facility] Medical Office Building 2 Radiation Oncology [address] [place] [id number] Indigo Patterson PA from Last 3 [...] 03/21 Assessment & Plan (03/21/2023 1:02 PM CLASSIFIER): A yearly Medicare Annual Wellness Visit has [...] style. Suggested using shampoo Nioxin #3 same equipment analyst in his scalp treatment. Told her it would take about 3 months for this to start working and she should see new hair growth. Also suggested seen a ski topper in regards to this problem. History of breast cancer 01/19/2021 Personal history of radiation therapy 11/25/2020 History of 2019 novel coronavirus disease (COVID -19) 02/23/2020 Bilateral hearing loss 01/22/2020 Assessment & Plan (02/07/2021 5:21 PM CLASSIFIER): Monitor hearing for change. Let provider know if change. Assessment & Plan (01/22/2020 3:39 PM CLASSIFIER): Have Eye Evaluation Hearing test and [facility] - [facility] BMI 21.0-21.9, adult 01/06/2020 Assessment & Plan (02/07/2021 5:20 PM CLASSIFIER): Watch diet, eat 3 meals a day or 6 small meals a day. Use fortified cereals or shakes. Weight weekly. Make sure you are drinking adequate fluids. Age-related osteoporosis wit hout current pathological fracture 01/06/2020 Assessment & Plan (01/06/2020 1:34 PM CLASSIFIER): On Fosamax, will refill. Patient due for another bone density study. Order placed. Arthralgia of multiple joints 01/06/2020 Assessment & Plan (03/21/2023 1:01 PM CLASSIFIER): Continues topical Voltaren prn. Discussed oral medications but want to check labs first. Also suggested Collagen Peptides. Assessment & Plan (02/07/2021 5:26 PM CLASSIFIER): Talked about bilateral knee pain and options to care. Encouraged not to do keep knee bends, squatting, kneeling on knees. Exercise gently not to injur knees more. Topical OTC meds discussed for joint pain. Also talked about shoes and avoiding wearing high heels. Assessment & Plan (01/06/2020 1:34 PM CLASSIFIER): Rcba-mic-tzewzmr pain relievers or choice recommended. Zmfhb-ln-mshmtp exercises encouraged. Essential hypertension 01/06/2020 Assessment & Plan (09/19/2023 1:44 PM CDT): BP in good shape. Updated labs ordered. Assessment & Plan (03/21/2023 1:01 PM CLASSIFIER): BP in good shape. Updated labs ordered. Assessment & Plan (05/18/2021 10:31 PM CDT): Continue with high blood pressure medication as ordered. Watch diet for added salt or salty food. Exercise for 30 minutes 3 times a week as tolerated Suggested doing some long bone exercises. Assessment & Plan (02/07/2021 5:19 PM CLASSIFIER): Continue medications as directed. Watch diet for salt, avoid adding salt. Monitor BP at home daily, minimum of 3 times a week. Exercise as tolerated 3 times a week. Assessment & Plan (01/06/2020 11:13 AM CLASSIFIER): Trial of lisinopril 2.5 mg once a [...] 07/14/2020 Assessment & Plan (02/07/2021 5:23 PM CLASSIFIER): Continue with oncology as advised by specialty. Continue with meds as directed. Assessment & Plan (01/12/2020 7:59 PM CLASSIFIER): On Arimidex. Managed by oncology Resolved Problems Problem Noted Date Diagnosed Date Resolved Date Dizziness and giddiness 01/06/2020 06/2 03/2020 Assessment & Plan (01/22/2020 3:39 PM CLASSIFIER): Have Eye Evaluation Hearing test and [facility] - [facility] Assessment & Plan (01/06/2020 1:33 PM CLASSIFIER): No dizziness today. Referred to ENT for further evaluation and management. Immunizations Immunization Administration Dates Next Due Influenza, Quadrivalent, Delores l Culture-based MDCK, Preservative Free, Antibiotic Free, Intramuscular 01/14/2021,03/01/2018 Influenza, Quadrivalent, Hig h Dose, Preservative Free, Intrr 01/06/2020 Influenza, Trivalent, IM (MDV) 02/01/2012 Influenza, Unspecified 03/21/2023(Deferr ed: Patient Refused),02/27/2022(Deferred: Patient Refused) Alberto (J&J) SARS-CoV-2 Vaccination 05/07/2020 Social History Tobacco [...] on file Legal Sex Female 4:52 AM CLASSIFIER Gender Identity Not on file Sexual Orientation [...] Plan of Treatment Not on file Insurance [facility] FOR [facility] Care Teams Telesales Supervisor Relationship Specialty Start Date End Date Frederic Regalado DO [address] [place] [address] PCP - General Family Medicine 05/08/24 Brigitte Michael MD PhD [address] [facility] [address] Surgeon Surgical Oncology 08/27/20 Shira Gold NP [address] [place] [address] [address] Nurse Practitioner Medical Oncology 02/15/23 Leora Bullock MD [address] [place] [address] [address] [place] [address] Radiation Oncologist Radiation Oncology 05/08/24
--- OUTSIDE RECORDS SUMMARY | 2024-06-26 16:55 | XMS_ITS | Continuity of Care Document ---
Author Name [facility] Organization [facility] Care Team Providers Care Demand Planning Analyst Name Role Phone [facility] Unavailable Unavailable Problems Combined list of problems from Department of Defense and Veterans Affairs facilities. It does not include entries that were removed or entered in error. Problem Status Onset Date Problem Type Date of Resolution Comments Source visit for: administrative purpose Inactive Condition [facility] HEPATIC CYST Active Condition [facility] joint pain, localized in the knee Active [...] Known Allergies Drug allergy (disorder) active [address] [place] [address] Fredo Alec [facility]) Encounters Combined list of: 1) Encounters from Department of Veterans Affairs facilities going backup to the last 18 months, not all [place] inpatient encounters are included; 2) Encounters from the Department of Defense facilities going backup to 280 months. Location Location Details Encounter Type Encounter Number Reason For Visit Attending Provider ADM Date DC Date Status Disposition Source [address] [place] [address] Fredo ALONZO [facility] ) OUTPATIENT [id number] swollen knee INDIRA SADLER CIV 05/31 Released w/o Limitations [address] [place] [address] Fredo ALONZO [facility]) [address] [place] [address] Fredo ALONZO [facility] ) TELE CONSULT [id number] Normal Duplex study right leg [facility] 06/01/11 INDIRA SADLER CIV 06/[address] [place] [address] Fredo ALONZO [facility]) [address] [place] [address] Fredo ALONZO [facility] ) TELE CONSULT [id number] pls call pt FINN ROBERTS 06/[address] [place] [address] Fredo ALONZO [facility] Intern[facility] Medic[facility] Tm) [address] [place] [address] Ferdo ALONZO [facility]Sco tt Internal Medicine Tm) TELE CONSULT [id number] hepatic cyst f/u INDIRA SADLER CIV 06/[address] [place] [address] Group Fredo [facility]S cott Interna l Medicin e Tm) Procedures Combined list of: 1) Procedures from Department of Veterans Affairs facilities going back up to thelast 18 months, not all [place] non-surgical procedures are included; 2) All procedures from the Department of Defense facilities. Procedure Procedure Type Code Date Perfomer Comments Sourc e TELE ASSESS & MGT SRV PROV QUAL NONPHYS HLTH CARE PRO TO EST PAT,PARENT,GUAR D NOT ORIG REL ASSESS & MGT SRV PROV W/IN PREV 7 DAYS NOR LEAD ASSESS & MGT SRV/PX W/IN NXT 24 HR/SOON APT;5-10 MIN MED DIS 06/08/2011 [facility] Non-Physician Phone Call To Patient/Provide r Brief (5-10min) Non-Physician Phone Call To Patient/Provide r Brief (5-10min) [id number] 06/09/2011 FINN ROBERTS [facility] No data available for this section Ambulatory [...] Plan No data available for this section 06/26/2024 Ambulatory Pharmacy Functional Status Combined list of recent functional and cognitive assessments recorded at Department of Defense and [facility] Affairs ([place] Functional [place] Measurement (FIM) Scale: 1 = Total Assistance (Subject = 0% +), 2 = Maximal Assistance (Subject = 25% +), 3 = Moderate Assistance (Subject = 50% +), 4 = Minimal Assistance (Subject = 75% +), 5 = Supervision, 6 = Modified [place] (Device), 7 = Complete [place] (Timely, Safely). Assessment Date/Time Source Assessment Type Assessment Skill Assessment Score Assessment Details No data available for this section
--- OUTSIDE RECORDS SUMMARY | 2024-06-26 16:55 | XMS_ITS | Clinical Summary ---
Author Organization [facility] Address [address] [place] [address] Phone Care Team Providers Care Pattern Changer Name Role Phone Brigitte Michael MD PhD Unavaila ble Shira Gold NP Unavailable [phone]- [phone] Leora Bullock MD Unavailable [phone] Frederic Regalado DO Primary Care Provider Allergies Active Allergy Reactions Criticality Noted Date [...] 03/21 Assessment & Plan (03/21/2023 1:02 PM CODING FILE CLERK): A yearly Medicare Annual Wellness Visit has [...] style. Suggested using shampoo Nioxin #3 same deaf/hard of hearing specialist in his scalp treatment. Told her it would take about 3 months for this to start working and she should see new hair growth. Also suggested seen a sider mechanic in regards to this problem. History of breast cancer 01/19/2021 Personal history of radiation therapy 11/25/2020 History of 2019 novel coronavirus disease (COVID -19) 02/23/2020 Bilateral hearing loss 01/22/2020 Assessment & Plan (02/07/2021 5:21 PM CODING FILE CLERK): Monitor hearing for change. Let provider know if change. Assessment & Plan (01/22/2020 3:39 PM CODING FILE CLERK): Have Eye Evaluation Hearing test and [facility] - [facility] BMI 21.0-21.9, adult 01/06/2020 Assessment & Plan (02/07/2021 5:20 PM CODING FILE CLERK): Watch diet, eat 3 meals a day or 6 small meals a day. Use fortified cereals or shakes. Weight weekly. Make sure you are drinking adequate fluids. Age-related osteoporosis wit hout current pathological fracture 01/06/2020 Assessment & Plan (01/06/2020 1:34 PM CODING FILE CLERK): On Fosamax, will refill. Patient due for another bone density study. Order placed. Arthralgia of multiple joints 01/06/2020 Assessment & Plan (03/21/2023 1:01 PM CODING FILE CLERK): Continues topical Voltaren prn. Discussed oral medications but want to check labs first. Also suggested Collagen Peptides. Assessment & Plan (02/07/2021 5:26 PM CODING FILE CLERK): Talked about bilateral knee pain and options to care. Encouraged not to do keep knee bends, squatting, kneeling on knees. Exercise gently not to injur knees more. Topical OTC meds discussed for joint pain. Also talked about shoes and avoiding wearing high heels. Assessment & Plan (01/06/2020 1:34 PM CODING FILE CLERK): Ekoi-qfh-dydlhrk pain relievers or choice recommended. Mcyqk-bo-lpkukj exercises encouraged. Essential hypertension 01/06/2020 Assessment & Plan (09/19/2023 1:44 PM CDT): BP in good shape. Updated labs ordered. Assessment & Plan (03/21/2023 1:01 PM CODING FILE CLERK): BP in good shape. Updated labs ordered. Assessment & Plan (05/18/2021 10:31 PM CDT): Continue with high blood pressure medication as ordered. Watch diet for added salt or salty food. Exercise for 30 minutes 3 times a week as tolerated Suggested doing some long bone exercises. Assessment & Plan (02/07/2021 5:19 PM CODING FILE CLERK): Continue medications as directed. Watch diet for salt, avoid adding salt. Monitor BP at home daily, minimum of 3 times a week. Exercise as tolerated 3 times a week. Assessment & Plan (01/06/2020 11:13 AM CODING FILE CLERK): Trial of lisinopril 2.5 mg once a day. Low-sodium diet recommended. Aromatase inhibitor use 05/24/2018 Malignant neoplasm of upper- outer quadrant of left breast in female, estrogen receptor positive 01/30/2018 Cancer Staging:Clinical stage from 03/01/2018:Stage IB(cT1c, cN1, cM0, G2, ER: Positive, ID: Positive, HER2: Negative, Oncotype DX score: 6) - Unsigned Pathologic stage from 07/14/2020:No Stage Recommended(ypT2, pN1, cM0, G2, ER+, ID+, HER2-) - Signed by Brigitte Michael MD PhD on 07/14/2020 Assessment & Plan (02/07/2021 5:23 PM CODING FILE CLERK): Continue with oncology as advised by specialty. Continue with meds as directed. Assessment & Plan (01/12/2020 7:59 PM CODING FILE CLERK): On Arimidex. Managed by oncology Resolved Problems Problem Noted Date Diagnosed Date Resolved Date Dizziness and giddiness 01/06/2020 06/03/2020 Assessment & Plan (01/22/2020 3:39 PM CODING FILE CLERK): Have Eye Evaluation Hearing test and [facility] - [facility] Assessment & Plan (01/06/2020 1:33 PM CODING FILE CLERK): No dizziness today. Referred to ENT for further evaluation and management. Encounters Date Type Department Care Team Description 06/06/2024 Telephone [facility] Medical Office Building 2 Radiation Oncology [address] [place] [id number] Indigo Patterson PA from Last 3 Months Immunizations Immunization Administration Dates Next Due Influenza, Quadrivalent, Delores l Culture-based MDCK, Preservative Free, Antibiotic Free, Intramuscular 01/14/2021,03/01/2018 Influenza, Quadrivalent, Hig h Dose, Preservative Free, Intrr 01/06/2020 Influenza, Trivalent, IM (MDV) 02/01/2012 Influenza, Unspecified 03/21/2023(Deferr ed: Patient Refused),02/27/2022(Deferred: Patient Refused) Flipaste (J&J) SARS-CoV-2 Vaccination 05/07/2020 Surgical History Surgery [...] on file Legal Sex Female 4:52 AM CODING FILE CLERK Gender Identity Not on file Sexual Orientation Not on file Obstetrics History Para Term AB IAB SAB Ectopic Multiple Livin g Live Births 1 1 1 Date Outcome GA Total Labor [...] - Jansse n risk series) 06/04/2020 05/07/2020 Well Visit 65+ 03/21/2024 03/21/2023 Depression Screening 09/18/2024 09/19/2023, 03/21/2023, 05/07/2021, Additional history exists Fall Risk Assessment 09/18/2024 09/19/2023, 03/21/2023, 02/05/2021, Additional history exists Influenza Vaccine (Season Ended) 2024 01/14/2021, 01/06/2020, 03/01/2018, Additional history exists Insurance [facility] [employer] [facility] Care Teams Pattern Changer Relationship Specialty Start Date End Date Frederic Regalado DO [address] [place] [address] PCP - General Family Medicine 05/08/24 Brigitte Michael MD PhD [address] [facility] [place] [address] Surgeon Surgical Oncology 08/27/20 [place] [address] [place] [address] [id number] Nurse Practitioner Medical Oncology 02/15/23 Leora Bullock MD [address] [place] [address] [address] [place] [address] Radiation Oncologist Radiation Oncology 05/08/24
--- OUTSIDE RECORDS SUMMARY | 2024-06-26 16:55 | XMS_ITS | Clinical Summary ---
Author Organization [facility] Address [address] [place] [address] Care Team Providers Care Public Bath Attendant Name Role Phone Germain Jewell MD Primary Care Provider [phone] Source Comments [facility],non-owned Affiliates and Associated Physician Practices is amultiple site organization consisting of ambulatory clinics and hospital sitesin [place], [place], [place] and [place]. This disclosure is being madepursuant to the Care Everywhere program and may not contain all information available regarding this patient. Last updated 17.[facility] Missingames Social History Tobacco Use Types Packs/Day Years Used Date Smoking Tobacco: Never Assessed Comments Unknown Sex and Gender Information Value Date Recorded Sex Assigned at Not on file Legal Sex Female 3:55 PM CARD GAME OPERATOR Gender Identity Not on file Sexual [...] VACCINE ( - 2023-2 5 season) 2023 DEPRESSION SCREENING 02/28/2024 INFLUENZA VACCINE (Season Ended) 2024 HEPATITIS B VACCINE Aged Out No longe r eligible based on patient's age to complete this topic HIB VACCINE Aged Out No longer eligi ble based on patient's age to complete this topic HPV VACCINE Aged Out No longer eligi ble based on patient's age to complete this topic MENINGOCOCCAL (Group B) VACC INE SHARED DECISION-MAKING Aged Out No longer eligibl e based on patient's age to complete this topic MENINGOCOCCAL GROUPS A/C/Y/W VACCINE Aged Out No longer eligible b ased on patient's age to complete this topic Insurance [facility] MEDICARE Care Teams Public Bath Attendant Relationship Specialty Start Date End Date Germain Jewell MD [address] [place] [address] PCP - General Family Medicine 02/13/18
--- OUTSIDE RECORDS SUMMARY | 2024-06-26 16:55 | XMS_ITS | Clinical Summary ---
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
--- OUTSIDE RECORDS SUMMARY | 2024-06-26 16:55 | XMS_ITS | Clinical Summary ---
Author Organization [facility] Address [address] [place] [address] Care Team Providers Care Meat Hanger Name Role Phone Bradford Alcantara MD Primary [...] Td Vaccines ( 1 - Tdap) 06/02/1954 Pneumococcal Vaccine: 50+ Ye ars (1 of 1 - PCV) 1986 Zoster Vaccines (1 of 2) 1986 RSV Immunization or 60+ Years (1 - 1-dose 75+ series) 06/02/2011 COVID-19 Vaccine ( - 2023-2 5 season) 2023 Meningococcal B Vaccine Aged Out No l onger eligible based on patient's age to complete this topic Meningococcal Vaccine Aged Out No eh alfa eligible based on patient's age to complete this topic RSV Immunizations Under 20 Months Aged Out No longer eligible based on patient's age to complete this topic Care Teams Meat Hanger Relationship Specialty Start Date End Date Bradford Alcantara MD PCP - General 06/01/11
--- NOTE | 2024-06-26 21:36 | ECG_ITS ---
Test Date: 2024-06-26 23:38:03 Measurements Intervals [place] Rate: 80 P: 52 WI: 187 QRS: 27 QRSD: 70 T: 48 QT: 376 QTc: 435 Interpretive Statements SINUS RHYTHM Compared to ECG 04/29/2024 12:42:36 Sinus tachycardia no longer present ST (T wave) deviation no longer present Electronically Signed On 06-28-2024 18:54:47 CDT by Joyce Florez
[2024-06-26 22:03] LABS: Basophils Absolute Auto 0.1 K/mm3 (0.0-0.1); Basophils Percent Auto 0.9 % (0.2-1.2); Eosinophils Absolute Auto 0.2 K/mm3 (0-0.3); Eosinophils Percent Auto 3.9 % (0-4.4); Hematocrit 35.8 % (37.0-47.0); Hemoglobin 10.8 g/dL (12.0-15.0); Immature Granulocyte Absolute 0.03 K/mm3 (0.00-0.031); Immature Granulocyte Percent A 0.6 % (0-0.5); Lymphocytes Absolute Auto 1.33 K/mm3 (0.9-3.2); Lymphocytes Percent Auto 24.6 % (18.3-44.2); Mean Corpuscular HGB Conc 30.2 g/dl (32-36); Mean Corpuscular Hemoglobin 31.6 pg (26-34); Mean Corpuscular Volume 104.7 fl (80-100); Mean Platelet Volume 8.4 fl (7.4-10.4); Monocytes Absolute Auto 0.4 K/mm3 (0.1-0.6); Monocytes Percent Auto 7.2 % (2.6-8.5); Neutrophils Absolute Auto 3.4 K/mm3 (1.3-6.7); Neutrophils Percent Auto 62.8 % (45.5-73.1); Platelet Count Result 388 k/mm3 (150-375); Red Blood Count 3.42 M/mm3 (4.2-5.4); Red Cell Distribution Width 14.1 % (11.5-14.5); White Blood Count 5.4 K/mm3 (4.5-10.0)
[2024-06-26 22:12] LABS: Alanine Aminotransferase 13 U/L (6-35); Albumin Level 4.4 g/dL (3.5-5.1); Alkaline Phosphatase 135 U/L (38-126); Anion Gap 15 mmol/L (4-12); Aspartate Amino Transferase 23 U/L (14-36); Bilirubin,Total 0.3 mg/dL (0.2-1.3); Blood Urea Nitrogen 17 mg/dL (7-17); Calcium 8.6 mg/dL (8.4-10.2); Carbon Dioxide 19 mmol/L (22-30); Chloride 109 mmol/L (98-107); Estimated CRCL calculation 31 ml/min; Estimated Glomerular Filt Rate > 60; Glucose 116 mg/dL (65-110); Sodium 143 mmol/L (137-145)
[2024-06-26 22:15] VITALS: BP 149/67; PULSE 93; RESP 13; O2SAT 100
[2024-06-26 22:38] VITALS: PULSE 86
[2024-06-26 22:40] VITALS: BP 137/74; PULSE 84; RESP 20; O2SAT 100
--- OUTSIDE RECORDS SUMMARY | 2024-06-26 22:52 | XMS_ITS | Clinical Summary ---
Author Organization [facility] Address [address] [place] [address] Phone Care Team Providers Care Directional Bore Operator Name Role Phone Brigitte Michael MD PhD Unavaila ble Shira Gold NP Unavailable [phone]- [phone] Leora Bullock MD Unavailable [phone] Frederic Regalado DO Primary Care Provider Allergies [...] 03/21 Assessment & Plan (03/21/2023 1:02 PM CONCRETE FINISHING MACHINE OPERATOR): A yearly Medicare Annual Wellness Visit [...] style. Suggested using shampoo Nioxin #3 same electrician research in his scalp treatment. Told her it would take about 3 months for this to start working and she should see new hair growth. Also suggested seen a stone paver in regards to this problem. History of breast cancer 01/19/2021 Personal history of radiation therapy 11/25/2020 History of 2019 novel coronavirus disease (COVID -19) 02/23/2020 Bilateral hearing loss 01/22/2020 Assessment & Plan (02/07/2021 5:21 PM CONCRETE FINISHING MACHINE OPERATOR): Monitor hearing for change. Let provider know if change. Assessment & Plan (01/22/2020 3:39 PM CONCRETE FINISHING MACHINE OPERATOR): Have Eye Evaluation Hearing test and [facility] - [facility] BMI 21.0-21.9, adult 01/06/2020 Assessment & Plan (02/07/2021 5:20 PM CONCRETE FINISHING MACHINE OPERATOR): Watch diet, eat 3 meals a day or 6 small meals a day. Use fortified cereals or shakes. Weight weekly. Make sure you are drinking adequate fluids. Age-related osteoporosis wit hout current pathological fracture 01/06/2020 Assessment & Plan (01/06/2020 1:34 PM CONCRETE FINISHING MACHINE OPERATOR): On Fosamax, will refill. Patient due for another bone density study. Order placed. Arthralgia of multiple joints 01/06/2020 Assessment & Plan (03/21/2023 1:01 PM CONCRETE FINISHING MACHINE OPERATOR): Continues topical Voltaren prn. Discussed oral medications but want to check labs first. Also suggested Collagen Peptides. Assessment & Plan (02/07/2021 5:26 PM CONCRETE FINISHING MACHINE OPERATOR): Talked about bilateral knee pain and options to care. Encouraged not to do keep knee bends, squatting, kneeling on knees. Exercise gently not to injur knees more. Topical OTC meds discussed for joint pain. Also talked about shoes and avoiding wearing high heels. Assessment & Plan (01/06/2020 1:34 PM CONCRETE FINISHING MACHINE OPERATOR): Drbi-otl-fxkaphp pain relievers or choice recommended. Fdcch-oq-fcnqpy exercises encouraged. Essential hypertension 01/06/2020 Assessment & Plan (09/19/2023 1:44 PM CDT): BP in good shape. Updated labs ordered. Assessment & Plan (03/21/2023 1:01 PM CONCRETE FINISHING MACHINE OPERATOR): BP in good shape. Updated labs ordered. Assessment & Plan (05/18/2021 10:31 PM CDT): Continue with high blood pressure medication as ordered. Watch diet for added salt or salty food. Exercise for 30 minutes 3 times a week as tolerated Suggested doing some long bone exercises. Assessment & Plan (02/07/2021 5:19 PM CONCRETE FINISHING MACHINE OPERATOR): Continue medications as directed. Watch diet for salt, avoid adding salt. Monitor BP at home daily, minimum of 3 times a week. Exercise as tolerated 3 times a week. Assessment & Plan (01/06/2020 11:13 AM CONCRETE FINISHING MACHINE OPERATOR): Trial of lisinopril 2.5 mg once a day. Low-sodium diet recommended. Aromatase inhibitor use 05/24/2018 Malignant neoplasm of upper- outer quadrant of left breast in female, estrogen receptor positive 01/30/2018 Cancer Staging:Clinical stage from 03/01/2018:Stage IB(cT1c, cN1, cM0, G2, ER: Positive, [place]: Positive, HER2: Negative, Oncotype DX score: 6) - Unsigned Pathologic stage from 07/14/2020:No Stage Recommended(ypT2, pN1, cM0, G2, ER+, W[place]+, HER2-) - Signed by Brigitte Michael MD PhD on 07/14/2020 Assessment & Plan (02/07/2021 5:23 PM CONCRETE FINISHING MACHINE OPERATOR): Continue with oncology as advised by specialty. Continue with meds as directed. Assessment & Plan (01/12/2020 7:59 PM CONCRETE FINISHING MACHINE OPERATOR): On Arimidex. Managed by oncology Resolved Problems Problem Noted Date Diagnosed Date Resolved Date Dizziness and giddiness 01/06/2020 06/03/2020 Assessment & Plan (01/22/2020 3:39 PM CONCRETE FINISHING MACHINE OPERATOR): Have Eye Evaluation Hearing test and [facility] - [facility] Assessment & Plan (01/06/2020 1:33 PM CONCRETE FINISHING MACHINE OPERATOR): No dizziness today. Referred to ENT for further evaluation and management. Encounters Date Type Department Care Team Description 06/06/2024 Telephone [facility] Medical Office Building 2 Radiation Oncology [address] [place] [address] Indigo Patterson PA from Last 3 Months Immunizations Immunization Administration Dates Next Due Influenza, Quadrivalent, Delores l Culture-based MDCK, Preservative Free, Antibiotic Free, Intramuscular 01/14/2021,03/01/2018 Influenza, Quadrivalent, Hig h Dose, Preservative Free, Intrr 01/06/2020 Influenza, Trivalent, IM (MDV) 02/01/2012 Influenza, Unspecified 03/21/2023(Deferr ed: Patient Refused),02/27/2022(Deferred: Patient Refused) [employer] (J&J) SARS-CoV-2 Vaccination 05/07/2020 Surgical History Surgery [...] on file Legal Sex Female 4:52 AM CONCRETE FINISHING MACHINE OPERATOR Gender Identity Not on file Sexual [...] 01/14/2021, 01/06/2020, 03/01/2018, Additional history exists Insurance [facility] [employer] [facility] Care Teams Directional Bore Operator Relationship Specialty Start Date End Date Frederic Regalado DO [address] [place] [address] PCP - General Family Medicine 05/08/24 Brigitte Michael MD PhD [address] [facility] [place] [address] Surgeon Surgical Oncology 08/27/20 [place] [address] [place] [address] [phone] Nurse Practitioner Medical Oncology 02/15/23 Leora Bullock MD [address] [place] [address] [address] [place] [address] Radiation Oncologist Radiation Oncology 05/08/24
--- OUTSIDE RECORDS SUMMARY | 2024-06-26 22:52 | XMS_ITS | Continuity of Care Document ---
Author Name [facility] Organization [facility] Care Team Providers Care Broiler Manager Name Role Phone [facility] Unavailable Unavailable Problems Combined list of problems from Department of Defense and Veterans Affairs facilities. It does not include entries that were removed or entered in error. Problem Status Onset Date Problem Type Date of Resolution Comments Source visit for: administrative purpose Inactive Condition [facility] HEPATIC CYST Active Condition [facility] joint pain, localized in the knee Active [...] Known Allergies Drug allergy (disorder) active [address] [place] [address] Fredo Alec [facility]) Encounters Combined list of: 1) Encounters from Department of Veterans Affairs facilities going backup to the last 18 months, not all [place] inpatient encounters are included; 2) Encounters from the Department of Defense facilities going backup to 280 months. Location Location Details Encounter Type Encounter Number Reason For Visit Attending Provider ADM Date DC Date Status Disposition Source [address] [place] [address] Fredo ALONZO [facility] ) OUTPATIENT [id number] swollen knee INDIRA SADLER CIV 05/31 Released w/o Limitations [address] [place] [address] Fredo ALONZO [facility] T[facility]) [address] [place] [address] Fredo ALONZO [facility] ) TELE CONSULT [id number] Normal Duplex study right leg St. [facility] 06/01/11 INDIRA SADLER CIV 06/[address] [place] [address] Fredo ALONZO [facility]) [address] [place] [address] Fredo ALONZO [facility] ) TELE CONSULT [id number] pls call pt FINN ROBERTS 06/[address] [place] [address] Fredo ALONZO [facility] cott Interna l Medicin e Tm) [address] [place] [address] Fredo ALONZO [facility]Sco tt Internal Medicine Tm) TELE CONSULT [id number] hepatic cyst f/u INDIRA SADLER CIV 06/[address] [place] [address] Group Fredo [facility]S cott Interna l Medicin e Tm) Procedures Combined list of: 1) Procedures from Department of Veterans Affairs facilities going back up to thelast 18 months, not all [place] non-surgical procedures are included; 2) All procedures [...] 24 HR/SOON APT;5-10 MIN MED DIS 06/08/2011 [facility] Non-Physician Phone Call To Patient/Provide r Brief (5-10min) Non-Physician Phone Call To Patient/Provide r Brief (5-10min) [id number] 06/09/2011 FINN ROBERTS [facility] No data available for this section Ambulatory [...] Plan No data available for this section 06/27/2024 Ambulatory Pharmacy Functional Status Combined list of recent functional and cognitive assessments recorded at Department of Defense and Veterans Affairs ([place]).[place] Functional Garrard Measurement (FIM) Scale: 1 = Total Assistance (Subject = 0% +), 2 = Maximal Assistance (Subject = 25% +), 3 = Moderate Assistance (Subject = 50% +), 4 = Minimal Assistance (Subject = 75% +), 5 = Supervision, 6 = Modified Garrard (Device), 7 = Complete Garrard (Timely, Safely). Assessment Date/Time Source Assessment Type Assessment Skill Assessment Score Assessment Details No data available for this section
--- OUTSIDE RECORDS SUMMARY | 2024-06-26 22:52 | XMS_ITS | Clinical Summary ---
Author Organization [facility] Address 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
--- OUTSIDE RECORDS SUMMARY | 2024-06-26 22:52 | XMS_ITS ---
Author Organization [facility] Address [address] [place] [address] Phone Care Team Providers Care Delivery Department Supervisor Name Role Phone Brigitte Michael MD PhD Unavaila ble Shira Gold NP Unavailable + [phone] Leora Bullock MD Unavailable [phone] Frederic Regalado DO Primary Care Provider [phone] Active Problems Problem Noted Date Diagnosed Date Medicare annual wellness visit, subsequent 03/21 Assessment & Plan (03/21/2023 1:02 PM EXERCISE INSTRUCTOR): A yearly Medicare Annual Wellness Visit has [...] style. Suggested using shampoo Nioxin #3 same ramp service employee in his scalp treatment. Told her it would take about 3 months for this to start working and she should see new hair growth. Also suggested seen a equipment washer in regards to this problem. History of breast cancer 01/19/2021 Personal history of radiation therapy 11/25/2020 History of 2019 novel coronavirus disease (COVID -19) 02/23/2020 Bilateral hearing loss 01/22/2020 Assessment & Plan (02/07/2021 5:21 PM EXERCISE INSTRUCTOR): Monitor hearing for change. Let provider know if change. Assessment & Plan (01/22/2020 3:39 PM EXERCISE INSTRUCTOR): Have Eye Evaluation Hearing test and [facility] - [facility] BMI 21.0-21.9, adult 01/06/2020 Assessment & Plan (02/07/2021 5:20 PM EXERCISE INSTRUCTOR): Watch diet, eat 3 meals a day or 6 small meals a day. Use fortified cereals or shakes. Weight weekly. Make sure you are drinking adequate fluids. Age-related osteoporosis wit hout current pathological fracture 01/06/2020 Assessment & Plan (01/06/2020 1:34 PM EXERCISE INSTRUCTOR): On Fosamax, will refill. Patient due for another bone density study. Order placed. Arthralgia of multiple joints 01/06/2020 Assessment & Plan (03/21/2023 1:01 PM EXERCISE INSTRUCTOR): Continues topical Voltaren prn. Discussed oral medications but want to check labs first. Also suggested Collagen Peptides. Assessment & Plan (02/07/2021 5:26 PM EXERCISE INSTRUCTOR): Talked about bilateral knee pain and options to care. Encouraged not to do keep knee bends, squatting, kneeling on knees. Exercise gently not to injur knees more. Topical OTC meds discussed for joint pain. Also talked about shoes and avoiding wearing high heels. Assessment & Plan (01/06/2020 1:34 PM EXERCISE INSTRUCTOR): Ptue-ugn-jcsxwep pain relievers or choice recommended. Painv-sl-dmqxcr exercises encouraged. Essential hypertension 01/06/2020 Assessment & Plan (09/19/2023 1:44 PM CDT): BP in good shape. Updated labs ordered. Assessment & Plan (03/21/2023 1:01 PM EXERCISE INSTRUCTOR): BP in good shape. Updated labs ordered. Assessment & Plan (05/18/2021 10:31 PM CDT): Continue with high blood pressure medication as ordered. Watch diet for added salt or salty food. Exercise for 30 minutes 3 times a week as tolerated Suggested doing some long bone exercises. Assessment & Plan (02/07/2021 5:19 PM EXERCISE INSTRUCTOR): Continue medications as directed. Watch diet for salt, avoid adding salt. Monitor BP at home daily, minimum of 3 times a week. Exercise as tolerated 3 times a week. Assessment & Plan (01/06/2020 11:13 AM EXERCISE INSTRUCTOR): Trial of lisinopril 2.5 mg once a day. Low-sodium diet recommended. Aromatase inhibitor use 05/24/2018 Malignant neoplasm of upper- outer quadrant of left breast in female, estrogen receptor positive 01/30/2018 Cancer Staging:Clinical stage from 03/01/2018:Stage IB(cT1c, cN1, cM0, G2, ER: Positive, AK: Positive, HER2: Negative, Oncotype DX score: 6) - Unsigned Pathologic stage from 07/14/2020:No Stage Recommended(ypT2, pN1, cM0, G2, ER+, AK+, HER2-) - Signed by Brigitte Michael MD PhD on 07/14/2020 Assessment & Plan (02/07/2021 5:23 PM EXERCISE INSTRUCTOR): Continue with oncology as advised by specialty. Continue with meds as directed. Assessment & Plan (01/12/2020 7:59 PM EXERCISE INSTRUCTOR): On Arimidex. Managed by oncology Current Treatment [...] 03/2020 Assessment & Plan (01/22/2020 3:39 PM EXERCISE INSTRUCTOR): Have Eye Evaluation Hearing test and [facility] - [facility] Assessment & Plan (01/06/2020 1:33 PM EXERCISE INSTRUCTOR): No dizziness today. Referred to ENT for further evaluation and management.
--- OUTSIDE RECORDS SUMMARY | 2024-06-26 22:52 | XMS_ITS | Clinical Summary ---
Author Organization [facility] Address [address] [place] [address] Care Team Providers Care Travel Writer Name Role Phone Germain Jewell MD Primary Care Provider [phone] [facility],non-owned Affiliates and Associated Physician Practices is amultiple site organization consisting of ambulatory clinics and hospital sitesin [place], [place], [place] and [place]. This disclosure is being madepursuant to the Care Everywhere program and may not contain all information available regarding this patient. Last updated 17.[facility] [employer] Social History Tobacco Use Types Packs/Day Years Used Date Smoking Tobacco: Never Assessed Comments Unknown Sex and Gender Information Value Date Recorded Sex Assigned at Not on file Legal Sex Female 3:55 PM [employer] Gender Identity Not on file Sexual Orientation [...] patient's age to complete this topic Insurance [facility] MEDICARE Care Teams Travel Writer Relationship Specialty Start Date End Date Germain Jewell MD [address] [place] [address] PCP - General Family Medicine 02/13/18
--- OUTSIDE RECORDS SUMMARY | 2024-06-26 22:52 | XMS_ITS | Clinical Summary ---
Author Organization [facility] Address [address] [place] [address] Care Team Providers Care [employer] Weapons Sergeant Name Role Phone Bradford Aclantara MD Primary Care Provider Unavailabl e Social [...] age to complete this topic Care Teams [employer] Weapons Sergeant Relationship Specialty Start Date End Date Bradford Alcantara MD PCP - General 06/01/11
--- OUTSIDE RECORDS SUMMARY | 2024-06-26 22:52 | XMS_ITS | Referral Summary ---
Author Organization [facility] Address [address] [place] [address] Phone Care Team Providers Care Teacher Cclc Name Role Phone Brigitte Michael MD PhD Unavaila ble Shira Gold NP Unavailable [phone] Leora Bullock MD Unavailable [phone] Frederic Regalado DO Primary Care Provider [phone] Encounters Date Type Department Care Team Description 06/06/2024 Telephone [facility] Medical Office Building 2 Radiation Oncology [address] [place] [id number] Indigo Patterson PA from Last 3 [...] 03/21 Assessment & Plan (03/21/2023 1:02 PM FOUNTAIN MANAGER): A yearly Medicare Annual Wellness Visit has been performed today. Liz Hapr is up to date on screening tests. [...] style. Suggested using shampoo Nioxin #3 same community organization aide in his scalp treatment. Told her it would take about 3 months for this to start working and she should see new hair growth. Also suggested seen a gallery assistant in regards to this problem. History of breast cancer 01/19/2021 Personal history of radiation therapy 11/25/2020 History of 2019 novel coronavirus disease (COVID -19) 02/23/2020 Bilateral hearing loss 01/22/2020 Assessment & Plan (02/07/2021 5:21 PM FOUNTAIN MANAGER): Monitor hearing for change. Let provider know if change. Assessment & Plan (01/22/2020 3:39 PM FOUNTAIN MANAGER): Have Eye Evaluation Hearing test and [facility] - [facility] BMI 21.0-21.9, adult 01/06/2020 Assessment & Plan (02/07/2021 5:20 PM FOUNTAIN MANAGER): Watch diet, eat 3 meals a day or 6 small meals a day. Use fortified cereals or shakes. Weight weekly. Make sure you are drinking adequate fluids. Age-related osteoporosis wit hout current pathological fracture 01/06/2020 Assessment & Plan (01/06/2020 1:34 PM FOUNTAIN MANAGER): On Fosamax, will refill. Patient due for another bone density study. Order placed. Arthralgia of multiple joints 01/06/2020 Assessment & Plan (03/21/2023 1:01 PM FOUNTAIN MANAGER): Continues topical Voltaren prn. Discussed oral medications but want to check labs first. Also suggested Collagen Peptides. Assessment & Plan (02/07/2021 5:26 PM FOUNTAIN MANAGER): Talked about bilateral knee pain and options to care. Encouraged not to do keep knee bends, squatting, kneeling on knees. Exercise gently not to injur knees more. Topical OTC meds discussed for joint pain. Also talked about shoes and avoiding wearing high heels. Assessment & Plan (01/06/2020 1:34 PM FOUNTAIN MANAGER): Ohpc-qgm-zniqfug pain relievers or choice recommended. Tzokq-sm-nvlwoo exercises encouraged. Essential hypertension 01/06/2020 Assessment & Plan (09/19/2023 1:44 PM CDT): BP in good shape. Updated labs ordered. Assessment & Plan (03/21/2023 1:01 PM FOUNTAIN MANAGER): BP in good shape. Updated labs ordered. Assessment & Plan (05/18/2021 10:31 PM CDT): Continue with high blood pressure medication as ordered. Watch diet for added salt or salty food. Exercise for 30 minutes 3 times a week as tolerated Suggested doing some long bone exercises. Assessment & Plan (02/07/2021 5:19 PM FOUNTAIN MANAGER): Continue medications as directed. Watch diet for salt, avoid adding salt. Monitor BP at home daily, minimum of 3 times a week. Exercise as tolerated 3 times a week. Assessment & Plan (01/06/2020 11:13 AM FOUNTAIN MANAGER): Trial of lisinopril 2.5 mg once a day. Low-sodium diet recommended. Aromatase inhibitor use 05/24/2018 Malignant neoplasm of upper- outer quadrant of left breast in female, estrogen receptor positive 01/30/2018 Cancer Staging:Clinical stage from 03/01/2018:Stage IB(cT1c, cN1, cM0, G2, ER: Positive, CT: Positive, HER2: Negative, Oncotype DX score: 6) - Unsigned Pathologic stage from 07/14/2020:No Stage Recommended(ypT2, pN1, cM0, G2, ER+, CT+, HER2-) - Signed by Brigitte Michael MD PhD on 07/14/2020 Assessment & Plan (02/07/2021 5:23 PM FOUNTAIN MANAGER): Continue with oncology as advised by specialty. Continue with meds as directed. Assessment & Plan (01/12/2020 7:59 PM FOUNTAIN MANAGER): On Arimidex. Managed by oncology Resolved Problems Problem Noted Date Diagnosed Date Resolved Date Dizziness and giddiness 01/06/2020 06/2 03/2020 Assessment & Plan (01/22/2020 3:39 PM FOUNTAIN MANAGER): Have Eye Evaluation Hearing test and [facility] - [facility] Assessment & Plan (01/06/2020 1:33 PM FOUNTAIN MANAGER): No dizziness today. Referred to ENT [...] on file Legal Sex Female 4:52 AM FOUNTAIN MANAGER Gender Identity Not on file Sexual [...] on file Insurance [facility] FOR LIFE [facility] FOR LIFE [facility] Care Teams Teacher Cclc Relationship Specialty Start Date End Date Frederic Regalado DO [address] [place] [address] PCP - General Family Medicine 05/08/24 Brigitte Michael MD PhD [address] [facility] [place] [address] Surgeon Surgical Oncology 08/27/20 Shira Gold NP [address] [place] [address] [address] Nurse Practitioner Medical Oncology 02/15/23 Leora Bullock MD [address] [place] [address] [address] [place] [address] Radiation Oncologist Radiation Oncology 05/08/24
[2024-06-26 23:28] LABS: Add Urine Microscopic? NO; Appearance Urine Clear (Clear); Bilirubin Urine Negative (Negative); Blood Urine Negative (Negative); Color Urine Yellow (Yellow); Glucose Urine UA Negative (Negative); Ketones Urine Negative (Negative); Leukocyte Esterase Ur Negative LEU/UL (Negative); Nitrate Urine Negative (Negative); Protein Urine Negative (Negative); Specific Grav Ur 1.023 (1.001-1.035)
--- NOTE | 2024-06-26 23:51 | ED_ITS ---
HPI - Altered Mental Status General Chief Complaint: Dizziness Stated Complaint: dizziness Time Seen by Provider: 06/26/24 22:14 History of Present Illness HPI narrative: 89-year-old female with history of hypertension, previous breast cancer now in remission status post surgery. Patient presents to the emergency department for mental status changes. Her daughter is present at bedside and provides the majority of the collateral formation. She is concerned that her dementia is acting up and causing her mental decline. She is not able to take care of herself at home. She just got back home from a skilled rehab facility after her recent hospitalization where she had a meniscal repair. According to the family she has been doing well at the rehab facility and graduated and went back home where she lives with her alone. Patient herself has been seeing things, talking to people that are not there, wandering around the house, leaving the house accidentally locking herself outside the house, turning on the stove and forgetting about it for hours. Patient herself thinks that her is trying to poison her but the family at bedside states that this is not the case and they are not actually worried about that. Family is distraught and thinks that she needs higher level of care and cannot be trusted to live alone with her was of equal age. Patient herself presently has no complaints such as headache, nausea, vomiting, abdominal pain, back pain, fever, chills. No urinary complaints, dysuria. No falls according to the family. Related Data Home Medications ?Medication ?Instructions ?Recorded ?Confirmed ?Last Taken ?Type ibandronate 150 mg tablet 150 mg PO MONTHLY 04/29/24 04/29/24 04/27/24 History Allergies Allergy/AdvReac Type Severity Reaction Status Date / Time No Known Allergies Allergy Mild Verified 05/02/24 09:24 Review of Systems 2 Review of Systems: As reviewed above in HPI [facility] Past Medical History Medical History Hyperlipidemia Vertigo Peptic ulcer disease Lumbar back pain with radiculopathy affecting left lower extremity Osteoporosis Breast cancer Diagnosed in 2019 left infiltrating ductal breast cancer T2 N1 ER positive [place] positive HER2 negative. The patient had delayed follow-up and initially had refused lumpectomy but eventually underwent lumpectomy. She did not receive chemotherapy or radiation therapy. Atopic dermatitis Surgical History Surgical History Status post left breast lumpectomy History of breast biopsy Family History Family History Mother Family history of arthritis Sibling Family history of diabetes mellitus in first degree relative Social History Social History Social History: She lives with her they were in 1968. She raised 4 children. She used to occasionally drink alcohol in moderation but has not done so in many years. She smoked 1 pack of cigarettes per day for about 25 years but quit at age 43. She denies illicit substance use. 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: Full code Surrogate decision maker: Smoking packs per day: 1 Smoking cigarettes per day: 20.0 Years smoked: 25 Smoking pack-years: 25.00 Smoking status: Former smoker Second hand tobacco smoke exposure: No Smoking end date: 02/28/96 Alcohol intake: former Substance use: never Do You Feel Safe in your Home?: Yes Lack of Transportation: No Lack of Food: Never True Current Housing: I Have Housing Concerned About Future Housing: No Difficulty Paying Gas/Electric Bills: No Difficulty Paying for Meds: No Currently Unemployed: No Education: Decline to Answer Difficulty w/ Childcare or Family Care: No Spiritual care concerns: No Exam 2 Narrative: GENERAL: [Well-appearing, well-nourished, and in no acute distress.] HEAD: [Normocephalic, atraumatic.] EYES: [PERRLA and EOMI.] ENT: Nares clear, no rhinorrhea or epistaxis. Mucous membranes moist. NECK: Supple. CHEST: [Clear to auscultation. No respiratory distress.] HEART: [Regular rate and rhythm]. No murmur heard. [Normal peripheral pulses.] ABDOMEN: [Soft, nondistended], [nontender], [No rigidity or guarding] EXTREMITIES: Normal range of motion. [No edema.] SKIN: Warm, dry, no rash. NEURO: [No focal deficits]. Alert and oriented [x3.] Seemingly intermittently confused PSYCH: [Normal mood and affect.] Course Vital Signs Vital signs: Vital Signs Temperature 36.4 C 06/26/24 16:54 Pulse Rate 90 06/26/24 16:54 Respiratory Rate 16 06/26/24 16:54 Blood Pressure 196/93 H 06/26/24 16:54 Pulse Oximetry 100 06/26/24 16:54 Oxygen Delivery Room Air 06/26/24 16:54 Temperature 36.4 C 06/26/24 16:54 Pulse Rate 84 06/26/24 22:40 Respiratory Rate 20 06/26/24 22:40 Blood Pressure 137/74 06/26/24 22:40 Pulse Oximetry 100 06/26/24 22:40 Oxygen Delivery Room Air 06/26/24 16:54 MDM - Altered Mental Status MDM Narrative Medical decision making narrative: 89-year-old female with a history of breast cancer now in remission, hypertension. She presents to the emergency department accompanied by her daughter who provides the majority of the collateral formation. Patient has been intermittently confused and the family is concerned that her dementia is worsening. They do not believe she can be safely going home at this time as she is locking herself out of the house, wandering, seeing things that are not there, turning on the stove and leaving in for hours at a time. Patient herself has no acute complaints at this time is not any distress. She has reassuring vital signs without any significant hypertension, tachycardia, fever or hypoxia. Strong symmetric pulses and neurovascularly intact. Previous arthroplastic site in her knee appears well healed without any effusion or tenderness. Suspicion presently is for cognitive decline from dementia verses UTI versus infectious process versus pneumonia. Low suspicion intracranial process such as stroke or hemorrhage. A workup was ordered including CBC, CMP, EKG, chest x- ray, CT of the head, urinalysis with straight catheterization. Workup was reassuring. No leukocytosis or significant anemia worse than baseline. Normal platelet count. Electrolytes are unremarkable. Normal renal function, normal glucose and LFTs. Urinalysis without signs of infection. Chest x-ray shows no acute cardiopulmonary process, unchanged interstitial thickening in the left side. CT of the head shows no acute findings. I spoke with the family members who wished to have higher level of care for the patient whether that be home health care or placement to a facility. I spoke to the hospitalist currently being covered by [facility] who accepted the patient to a medical-surgical bed for care coordination and placement. Medical Records Attestation: I reviewed the patient's medical records. Lab Data Attestation: I reviewed the patient's lab results. 06/26/24 21:55 06/26/24 21:55 Labs: Lab Results 06/26/24 06/26/24 Range/Units 21:55 23:20 WBC 5.4 (4.5-10.0) K/mm3 RBC 3.42 L (4.2-5.4) M/mm3 Hgb 10.8 L (12.0-15.0) g/dL Hct 35.8 L (37.0-47.0) % MCV 104.7 H (80-100) fl MCH 31.6 (26-34) pg MCHC 30.2 L (32-36) g/dl RDW 14.1 (11.5-14.5) % Plt Count 388 H (150-375) k/mm3 MPV 8.4 (7.4-10.4) fl Immature Gran % (Auto) 0.6 H (0-0.5) % Neut % (Auto) 62.8 (45.5-73.1) % Lymph % (Auto) 24.6 (18.3-44.2) % Clark % (Auto) 7.2 (2.6-8.5) % Eos % (Auto) 3.9 (0-4.4) % Baso % (Auto) 0.9 (0.2-1.2) % Lymph # (Auto) 1.33 (0.9-3.2) K/mm3 Clark # (Auto) 0.4 (0.1-0.6) K/mm3 Eos # (Auto) 0.2 (0-0.3) K/mm3 Baso # (Auto) 0.1 (0.0-0.1) K/mm3 Abs Immat Gran (auto) 0.03 (0.00-0.031) K/mm3 Absolute Neuts (auto) 3.4 (1.3-6.7) K/mm3 Absolute Nucleated RBC 0.000 (0.0-0.012) K/mm3 Nucleated RBC % 0.0 (0.0-0.2) % Sodium 143 (137-145) mmol/L Potassium 4.0 (3.4-5.0) mmol/L Chloride 109 H (98-107) mmol/L Carbon Dioxide 19 L (22-30) mmol/L Anion Gap 15 H (4-12) mmol/L BUN 17 (7-17) mg/dL Creatinine 0.77 (0.7-1.0) mg/dL Estim Creat Clear Calc 31 ml/min Estimated GFR > 60 (59 - ) Glucose 116 H (65-110) mg/dL Calcium 8.6 (8.4-10.2) mg/dL Total Bilirubin 0.3 (0.2-1.3) mg/dL AST 23 (14-36) U/L ALT 13 (6-35) U/L Alkaline Phosphatase 135 H (38-126) U/L Total Protein 8.0 (6.3-8.2) g/dL Albumin 4.4 (3.5-5.1) g/dL Urine Color Yellow (Yellow) Urine Appearance Clear (Clear) Urine pH 7.0 (5.0-9.0) Ur Specific Alba 1.023 (1.001-1.035) Urine Protein Negative (Negative) mg/dL Urine Glucose (UA) Negative (Negative) mg/dL Urine Ketones Negative (Negative) mg/dL Ur Blood (Man) Negative (Negative) Urine Nitrate Negative (Negative) Urine Bilirubin Negative (Negative) Urine Urobilinogen 1.0 (<2.0) mg/dL Leukocyte Esterase Rfl Negative (Negative) LYRIC/UL Imaging Data Attestation: I personally reviewed and interpreted this imaging study as follows: My impression: Impressions Chest X-Ray 06/26/24 22:10 IMPRESSION: Interstitial thickening in the left midzone unchanged. Possible rounded opacity in the right lower lobe which may be summation shadow. A repeat exam in 3 months is advised. Otherwise, No acute cardiopulmonary pathology. Head CT 06/26/24 22:37 IMPRESSION: No acute intracranial findings. ECG Data EKG #1: Attestation: I personally reviewed and interpreted this ECG as follows: ECG completion date: 06/27/24 ECG completion time: 12:42 Prior ECG tracings: not available for review Interpretation: No ST segment elevations, depressions. QTC 437, [place] interval 179, rate of 106 beats per minute. QRS 61. Final interpretation sinus tachycardia. Discharge Plan Discharge Clinical Impression: Confusion Patient Disposition: Still a Patient Condition: Stable Patient Language: Hungarian Prescriptions: No Action ibandronate 150 mg tablet 150 mg PO MONTHLY hydrocodone-acetaminophen 5-325 mg Tablet 1 tablet PO Q6H PRN (Reason: Pain Rated 4-10) Qty: 20 0RF sennosides-docusate sodium [Senokot-S] 8.6-50 mg Tablet 1 tab PO BID Qty: 60 0RF polyethylene glycol 3350 [Miralax] 17 gram Powder In Packet 17 g PO DAILY Qty: 30 0RF famotidine 20 mg Tablet 20 mg PO Q12HR Qty: 60 0RF midodrine 10 mg Tablet 10 mg PO TID Qty: 90 0RF hydrocodone-acetaminophen 5-325 mg Tablet 1 tablet PO Q4H PRN (Reason: Pain Rated 4-6) Qty: 14 0RF levothyroxine 50 mcg tablet 50 mcg PO DAILY Qty: 60 0RF Follow-up/Referrals: UNKNOWN,DOCTOR [Primary Care Provider] - Time of Disposition: 00:02
[2024-06-27] VITALS (14 sets, daily range): BP systolic 126–186; BP diastolic 74–119; PULSE 74–100; RESP 14–20; TEMP 36.1–36.6; O2SAT 98–100; BMI 22.3
--- NOTE | 2024-06-27 00:58 | ADMGEN ---
This patient, Liz Harp, was admitted to Medical Room 343-01. Patient/family oriented to hospital policies and general routines including ID bracelet, bed and alarms, visiting hours, pain management, procedures, bathroom and other care routines, personal items, smoking policy, room service/diet, and visiting hours. Information on how to activate the Rapid Response Team has been discussed. Patient/Family are encouraged to report perceived risks to care and to ask questions if they do not understand what they are told or what they should do.
--- NOTE | 2024-06-27 01:55 | PM.IMHP ---
H&P: HPI History of Present Illness Date/Time: 06/27/24 00:15 Chief Complaint: Confusion. Narrative: This is a very pleasant 81-year-old female with suspected dementia, vertigo, orthostatic hypotension, hypothyroidism, breast cancer, and gastroesophageal reflux disease who presented to the emergency department via EMS from home for evaluation of confusion. She is able to provide some history and her daughter at bedside provides additional information with the patient's permission. The patient was admitted to the hospital early April after a fall and she was treated for mild rhabdomyolysis related to the fall and E coli urinary tract infection. She was discharged to [facility] for rehab and daughter reports that she had increasing confusion while at that facility and was ?started on something for dementia? however on review of her medications it looks like she was started on olanzapine as needed for agitation; I do not see anything specifically for dementia. Since returning home she has become more and more confused and seems to be getting lost in the home she has shared with her for many years. She now has episodes of hallucinations and paranoia. The other day she accidentally locked herself out of the home and told her daughter that her was keeping her from going inside. She also thinks that he is trying to poison her. She has also forgetting about things on the stove and had only the gas going on the stove the other day. Last evening she left the house and wondered over to a neighbor's home which is very unusual for her and they called 911. Daughter does not think that the patient is safe to be at home with just her in her and may need placement. Other than the increasing confusion, she has no complaints. She does express frustration as she recognizes her confusion and hallucinations. She also mentions having frequent vertigo which is been an ongoing problem and is not new. She denies fever, headache, vision changes, focal weakness, paresthesias, cold and flu symptoms, chest pain, shortness of breath, cough, nausea, vomiting, diarrhea, and dysuria. In the ED: Vital signs on arrival include a temperature 97.6?, blood pressure 196/93, pulse 90, respiratory rate 16, SpO2 100% on room air. Labs are significant for a hemoglobin of 10.8, MCV 104.7, chloride 109, carbon dioxide 19, anion gap 15, creatinine 0.77, glucose 116. Urinalysis was unremarkable. Brain CT showed no acute findings. Chest x-ray showed interstitial thickening in the left mid zone which is unchanged. Review of Systems Review of Systems: 12 systems were reviewed and are negative except for as per HPI. FOR[facility], [facility] Past Medical History Medical History (Updated 06/27/24 @ 04:31 by Marita Lazaro PA-C) Hypothyroidism Hyperlipidemia Vertigo Peptic ulcer disease Lumbar back pain with radiculopathy affecting left lower extremity Osteoporosis Breast cancer Diagnosed in 2019 left infiltrating ductal breast cancer T2 N1 ER positive RI positive HER2 negative. The patient had delayed follow-up and initially had refused lumpectomy but eventually underwent lumpectomy. She did not receive chemotherapy or radiation therapy. Atopic dermatitis Surgical History Surgical History Status post left breast lumpectomy History of breast biopsy Family History Family History Mother Family history of arthritis Sibling Family history of diabetes mellitus in first degree relative Social History Social History Social History: She lives with her they were in 1968. She raised 4 children. She used to occasionally drink alcohol in moderation but has not done so in many years. She smoked 1 pack of cigarettes per day for about 25 years but quit at age 43. She denies illicit substance use. 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: Full code Surrogate decision maker: Smoking packs per day: 1 Smoking cigarettes per day: 20.0 Years smoked: 20 Smoking pack-years: 20.00 Smoking status: Former smoker Second hand tobacco smoke exposure: No Smoking end date: 02/28/96 Alcohol intake: former Substance use: never Substance use type: does not use Do You Feel Safe in your Home?: Yes Lack of Transportation: No Lack of Food: Never True Current Housing: I Have Housing Concerned About Future Housing: No Difficulty Paying Gas/Electric Bills: No Difficulty Paying for Meds: No Currently Unemployed: No Education: Never Attended/Kindergarten Only Difficulty w/ Childcare or Family Care: No Spiritual care concerns: No Meds Home Medications and Allergies Home Medications ?Medication ?Instructions ?Recorded ?Confirmed ?Type ibandronate 150 mg tablet 150 mg PO MONTHLY 04/29/24 06/27/24 History famotidine 20 mg tablet 20 mg PO Q12HR #60 tabs 05/10/24 06/27/24 Rx levothyroxine 50 mcg tablet 50 mcg PO DAILY #60 tabs 05/10/24 06/27/24 Rx midodrine 10 mg tablet 10 mg PO TID #90 tabs 05/10/24 06/27/24 Rx docusate sodium 100 mg capsule 100 mg PO DAILY 06/27/24 06/27/24 History (Dulcolax Stool Softener (docusate)) hydrocodone 5 mg-acetaminophen 325 1 tablet PO Q6H PRN Pain Rated 4-6 06/27/24 06/27/24 History mg tablet lidocaine 4 % topical patch 1 patch topical DAILY PRN pain 06/27/24 06/27/24 History olanzapine 2.5 mg tablet (Zyprexa) 2.5 mg PO HS PRN agitation 06/27/24 06/27/24 History Allergies Allergy/AdvReac Type Severity Reaction Status Date / Time No Known Allergies Allergy Mild Verified 05/02/24 09:24 Vital Signs Vital Signs - 24 hr 06/26/24 16:54 06/26/24 22:15 06/26/24 22:38 Temperature 97.6 F Pulse Rate 90 93 86 Respiratory Rate 16 13 Blood Pressure 196/93 H 149/67 H Pulse Oximetry 100 100 Oxygen Delivery Room Air 06/26/24 22:40 06/27/24 00:28 06/27/24 00:47 Temperature Pulse Rate 84 85 96 Respiratory Rate 20 14 Blood Pressure 137/74 163/74 H 186/91 H Pulse Oximetry 100 98 Oxygen Delivery 06/27/24 00:47 06/27/24 00:48 06/27/24 01:05 Temperature 97.6 F Pulse Rate 88 88 74 Respiratory Rate 16 Blood Pressure 181/90 H 162/89 H 162/82 H Pulse Oximetry 99 Oxygen Delivery 06/27/24 01:14 06/27/24 01:40 Temperature Pulse Rate 85 Respiratory Rate 14 Blood Pressure 163/74 H Pulse Oximetry 98 Oxygen Delivery Room Air Exam Narrative: General: Well-developed, nontoxic-appearing female sitting up in bed. Weight: 55.3 kg. BMI: 22.3. HEENT: Arcus senilis. PERRL, EOMI. Sclera anicteric. Oral mucosa moist. Neck: Supple. Respiratory: Lungs are clear to auscultation bilaterally. Cardiovascular: Regular rate and rhythm with S1-S2. Gastrointestinal: Abdomen is soft, nontender, and nondistended with positive bowel sounds. Skin: Warm and dry. No rash or lesions on limited exam. Extremities: No cyanosis, clubbing, or edema. Radial and pedal pulses intact. Neurological: Alert and oriented to name, age, date of , place, year, and president. She is aware that she is at the hospital. Cranial nerves 2-12 are grossly intact. Speech is clear. No facial asymmetry. No gross focal deficits to casual conversation. Psychiatric: Pleasant and cooperative. She recognizes the confusion and hallucinations that she has been having. H&P: Results Labs Labs: Short CBC 06/26/24 Range/Units 21:55 WBC 5.4 (4.5-10.0) K/mm3 Hgb 10.8 L (12.0-15.0) g/dL Hct 35.8 L (37.0-47.0) % Plt Count 388 H (150-375) k/mm3 BMP 06/26/24 21:55 Sodium 143 Potassium 4.0 Chloride 109 H Carbon Dioxide 19 L BUN 17 Creatinine 0.77 Glucose 116 H Calcium 8.6 Liver Function 06/26/24 Range/Units 21:55 Total Bilirubin 0.3 (0.2-1.3) mg/dL AST 23 (14-36) U/L ALT 13 (6-35) U/L Alkaline Phosphatase 135 H (38-126) U/L Albumin 4.4 (3.5-5.1) g/dL Urine 06/26/24 Range/Units 23:20 Urine Color Yellow (Yellow) Urine Appearance Clear (Clear) Urine pH 7.0 (5.0-9.0) Ur Specific [place] 1.023 (1.001-1.035) Urine Protein Negative (Negative) mg/dL Urine Glucose (UA) Negative (Negative) mg/dL Impressions Chest X-Ray 06/26/24 22:10 IMPRESSION: Interstitial thickening in the left midzone unchanged. Possible rounded opacity in the right lower lobe which may be summation shadow. A repeat exam in 3 months is advised. Otherwise, No acute cardiopulmonary pathology. Head CT 06/26/24 22:37 IMPRESSION: No acute intracranial findings. Assessment and Plan Assessment and plan (1) Hallucinations: Code(s): R44.3 - Hallucinations, unspecified Status: Acute (2) Confusion: Code(s): R41.0 - Disorientation, unspecified Status: Acute (3) Hypothyroidism: Code(s): E03.9 - Hypothyroidism, unspecified Status: Acute (4) Macrocytic anemia: Code(s): D53.9 - Nutritional anemia, unspecified Status: Acute Plan The patient presented to the emergency department for evaluation after she was found wandering outside as detailed in HPI. Labs, imaging, EKG, and all reports were personally reviewed. She has had increasing confusion since her hospitalization in April, worse since returning home from rehab. She was started on olanzapine at the rehab facility for agitation but it is unclear whether not she has been taking that at home. She does not have an official dementia diagnosis thus will consult Neurology for their opinion. She does not appear to have underlying infection or focal deficit Family members are concerned for her safety at home as she has been leaving the stove on and has been wandering which is very unusual for her and they feel that she may need to be placed in Memory Care and care coordination has been consulted. Hold hydrocodone and olanzapine for now to see if there is any improvement. Her vital signs have been stable. Continue levothyroxine; recent TSH was within normal limits. Macrocytic anemia stable and recent B12 and folate studies were noted. Her home medications will be reviewed and resumed as appropriate. Findings and treatment plan were discussed with the patient and her daughter. Questions were solicited and answered to satisfaction. The patient's medical management will be taken over by the hospitalist team in a.m. Quality VTE Prophylaxis VTE prophylaxis: mechanical ordered If No VTE Prophylaxis Answer both mechanical and pharmacologic: Reason no pharmacologic proph: medical contraindication (fall risk) The patient has been admitted under observation status. Hospitalist MIPS Advance Care Plan I have confirmed that the patient's Advanced Care Plan is present, code status is documented, or surrogate decision maker is listed in patient medical record.: Yes Medication Reconciliation I have utilized all available resources to obtain, update and review the patients current medications (includes all prescriptions, OTC, herbals, cannabis, and nutritional supplements).: Yes
[2024-06-27] MEDS: LEVOTHYROXINE SODIUM 50 MCG TABLET PO (05:40)
[2024-06-27] MEDS: FAMOTIDINE 20 MG TABLET PO ×2 (09:54→20:08)
--- NOTE | 2024-06-27 09:58 | PC.NURSE ---
will review orthostatic results with MD on rounds, pt doing well, up ambulatory in room with daughter
[2024-06-27 10:39] LABS: Prothrombin Time 13.6 Seconds (11.1-14.7)
[2024-06-27 10:40] LABS: Partial Thromboplastin Time 26.5 Seconds (22.3-36.8)
[2024-06-27 11:47] LABS: Syphilis IgG/IgM Antibody Negative (Negative)
--- NOTE | 2024-06-27 14:27 | ECG_ITS ---
Test Date: 2024-06-27 16:09:13 Measurements Intervals [place] Rate: 86 P: 54 CO: 185 QRS: 14 QRSD: 69 T: 49 QT: 388 QTc: 466 Interpretive Statements SINUS RHYTHM NONSPECIFIC ST-T WAVE CHNAGES Compared to ECG 06/26/2024 23:38:03 no significant change seen Electronically Signed On 06-28-2024 19:00:35 CDT by Joyce Florez
--- NOTE | 2024-06-27 15:57 | WPDNEURCNPN ---
Assessment and Plan Assessment and plan (1) Dementia of Alzheimer's type with behavioral disturbance: Code(s): G30.9 - Alzheimer's disease, unspecified; F02.818 - Dementia in other diseases classified elsewhere, unspecified severity, with other behavioral disturbance Status: Acute Plan according to the history there was a very slow decline over the last 1 year however the last 1 month there is a dramatic decline in her mental status after she had a fall and urinary tract infection for which she was hospitalized. CT scan of brain did not show any abnormality. Serum B12 level was normal. Other lab data data do not point to any underlying significant abnormality. Hemoglobin was course low 10.8. I agree with the decision to go for MRI and spinal tap looking for any viral or autoimmune encephalitis. I talked to the nursing staff About this also. Consult date: 06/27/24 HPI: Liz Harp is a 89 year old female protein with the confusional behavior. She has been paranoid at to bizarre manner. She was here in April with urinary tract infection and was discharged to a rehab facility. According to her there have been a decline in memory over the last 1 year however she has taken at her significant nose dive in the last month or so she has been suspicious of people sometimes seeing things or talking to people who were not there wandering around the house leaving the house accidentally locking herself outside the house and turning on the stall stroke and for itching about 4 hours. The patient herself thinks that her is trying to poison her but the family is at the bedside states that that is not the case. Patient's and daughter were both present at the time of my evaluation. Patient denies any symptoms. She was admitted to the hospital in April after having a fall and had mild rhabdomyolysis. Here in the hospital she has been afebrile and vital signs have been stable. Upon specific questioning she denies any headache nausea or vomiting she has not had any head trauma. No seizures or passing out spell. CT scan head was performed which was normal. Is scheduled to have an MRI of the brain and spinal tap most likely to look for any encephalitis. Review of Systems Review of Systems: All systems reviewed & are unremarkable except as noted in HPI and below PMFSH Past Medical History Medical History (Updated 06/27/24 @ 16:05 by Cari Bolivar MD) Dementia of Alzheimer's type with behavioral disturbance Hypothyroidism Hyperlipidemia Vertigo Peptic ulcer disease Lumbar back pain with radiculopathy affecting left lower extremity Osteoporosis Breast cancer Diagnosed in 2019 left infiltrating ductal breast cancer T2 N1 ER positive RI positive HER2 negative. The patient had delayed follow-up and initially had refused lumpectomy but eventually underwent lumpectomy. She did not receive chemotherapy or radiation therapy. Atopic dermatitis Surgical History Surgical History Status post left breast lumpectomy History of breast biopsy Family History Family History Mother Family history of arthritis Sibling Family history of diabetes mellitus in first degree relative Social History Social History Social History: She lives with her they were in 1968. She raised 4 children. She used to occasionally drink alcohol in moderation but has not done so in many years. She smoked 1 pack of cigarettes per day for about 25 years but quit at age 43. She denies illicit substance use. 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: Full code Surrogate decision maker: Smoking packs per day: 1 Smoking cigarettes per day: 20.0 Years smoked: 20 Smoking pack-years: 20.00 Smoking status: Former smoker Second hand tobacco smoke exposure: No Smoking end date: 02/28/96 Alcohol intake: former Substance use: never Substance use type: does not use Do You Feel Safe in your Home?: Yes Lack of Transportation: No Lack of Food: Never True Current Housing: I Have Housing Concerned About Future Housing: No Difficulty Paying Gas/Electric Bills: No Difficulty Paying for Meds: No Currently Unemployed: No Education: Never Attended/Kindergarten Only Difficulty w/ Childcare or Family Care: No Spiritual care concerns: No Meds Home Medications and Allergies Home Medications ?Medication ?Instructions ?Recorded ?Confirmed ?Type ibandronate 150 mg tablet 150 mg PO MONTHLY 04/29/24 06/27/24 History famotidine 20 mg tablet 20 mg PO Q12HR #60 tabs 05/10/24 06/27/24 Rx levothyroxine 50 mcg tablet 50 mcg PO DAILY #60 tabs 05/10/24 06/27/24 Rx midodrine 10 mg tablet 10 mg PO TID #90 tabs 05/10/24 06/27/24 Rx docusate sodium 100 mg capsule 100 mg PO DAILY 06/27/24 06/27/24 History (Dulcolax Stool Softener (docusate)) hydrocodone 5 mg-acetaminophen 325 1 tablet PO Q6H PRN Pain Rated 4-6 06/27/24 06/27/24 History mg tablet lidocaine 4 % topical patch 1 patch topical DAILY PRN pain 06/27/24 06/27/24 History olanzapine 2.5 mg tablet (Zyprexa) 2.5 mg PO HS PRN dementia 06/27/24 06/27/24 History Allergies Allergy/AdvReac Type Severity Reaction Status Date / Time No Known Allergies Allergy Mild Verified 05/02/24 09:24 Vital Signs Vital Signs - 24 hr 06/26/24 16:54 06/26/24 22:15 06/26/24 22:38 Temperature 97.6 F Pulse Rate 90 93 86 Respiratory Rate 16 13 Blood Pressure 196/93 H 149/67 H Pulse Oximetry 100 100 Oxygen Delivery Room Air 06/26/24 22:40 06/27/24 00:28 06/27/24 00:47 Temperature Pulse Rate 84 85 96 Respiratory Rate 20 14 Blood Pressure 137/74 163/74 H 186/91 H Pulse Oximetry 100 98 Oxygen Delivery 06/27/24 00:47 06/27/24 00:48 06/27/24 01:05 Temperature 97.6 F Pulse Rate 88 88 74 Respiratory Rate 16 Blood Pressure 181/90 H 162/89 H 162/82 H Pulse Oximetry 99 Oxygen Delivery 06/27/24 01:14 06/27/24 01:40 06/27/24 04:45 Temperature 98 F Pulse Rate 85 84 Respiratory Rate 14 16 Blood Pressure 163/74 H 153/75 H Pulse Oximetry 98 99 Oxygen Delivery Room Air 06/27/24 08:50 06/27/24 09:45 06/27/24 09:47 Temperature Pulse Rate Respiratory Rate Blood Pressure 135/74 130/84 Pulse Oximetry Oxygen Delivery Room Air 06/27/24 09:49 06/27/24 14:17 06/27/24 14:17 Temperature 97.1 F L Pulse Rate 82 Respiratory Rate 16 Blood Pressure 126/93 H 173/82 H Pulse Oximetry 100 Oxygen Delivery 06/27/24 14:18 06/27/24 14:18 06/27/24 15:10 Temperature Pulse Rate 80 Respiratory Rate Blood Pressure 163/119 H 152/76 H Pulse Oximetry Oxygen Delivery Room Air Exam Narrative: Fully conscious alert. When asked to name 5 colors she had no problem. When asked to name 5 fruits name only 3 when asked to name 5 big cities she could not name any. She knew the month and the year and she finally figured out where she is at this time. No aphasia or dysarthria. She does not appear to be actively hallucinating or delusional at this time. She is fully conscious alert and does seem to be trying to cooperate. Examination head and neck shows no evidence of external trauma. Cranial nerves pupils were equal react to light. Visual h[place] by confrontation are within normal range. Extraocular movements intact. There is no facial asymmetry. Face sensation intact. Other cranial nerves were within normal limits. Motor system shows normal power and tone in both upper and lower limbs. No involuntary movements seen. Sensory examination grossly intact. Results Labs 06/26/24 21:55 06/26/24 21:55 Labs: Short CBC 06/26/24 Range/Units 21:55 WBC 5.4 (4.5-10.0) K/mm3 Hgb 10.8 L (12.0-15.0) g/dL Hct 35.8 L (37.0-47.0) % Plt Count 388 H (150-375) k/mm3 BMP 06/26/24 21:55 Sodium 143 Potassium 4.0 Chloride 109 H Carbon Dioxide 19 L BUN 17 Creatinine 0.77 Glucose 116 H Calcium 8.6 Liver Function 06/26/24 Range/Units 21:55 Total Bilirubin 0.3 (0.2-1.3) mg/dL AST 23 (14-36) U/L ALT 13 (6-35) U/L Alkaline Phosphatase 135 H (38-126) U/L Albumin 4.4 (3.5-5.1) g/dL Urine 06/26/24 Range/Units 23:20 Urine Color Yellow (Yellow) Urine Appearance Clear (Clear) Urine pH 7.0 (5.0-9.0) Ur Specific [place] 1.023 (1.001-1.035) Urine Protein Negative (Negative) mg/dL Urine Glucose (UA) Negative (Negative) mg/dL
--- NOTE | 2024-06-27 17:22 | P.PNIM_ITS ---
Progress Note: A&P Assessment and Plan (1) Hallucinations: Code(s): R44.3 - Hallucinations, unspecified Status: Acute (2) Confusion: Code(s): R41.0 - Disorientation, unspecified Status: Acute (3) Hypothyroidism: Code(s): E03.9 - Hypothyroidism, unspecified Status: Acute (4) Macrocytic anemia: Code(s): D53.9 - Nutritional anemia, unspecified Status: Acute Plan Worsening AMS Daughter noted that since her last hospitalization patient has had deep decline in mental status otherwise noted mild confusion prior to previous hospitalization alert and oriented x2, not to time MRI brain no acute changes, b12 and folate from prior admission wnl, Syphylis IgG/Igm negative Neurology consulted and recommended EEG based off of which Lumbar will be considered monitor Hypothyroidism continue home Levothyroxine Anemia hb 10.8 Iron panel ordered B12 and folate normal DVT prophylaxis on Sq Lovenox Subjective Date/time seen: 06/27/24 17:22 Interval history: Comfortable at bedside alert and oriented x2 Review of Systems Review of Systems: 12 systems were reviewed and are negativ e except for as per HPI. Exam Narrative: General: comfortable no acute distress HEENT: Arcus senilis. PERRL, EOMI. Sclera anicteric. Oral mucosa moist. Neck: Supple. Respiratory: Lungs are clear to auscultation bilaterally. Cardiovascular: Regular rate and rhythm with S1-S2. Gastrointestinal: Abdomen is soft, nontender, and nondistended with positive bowel sounds. Skin: Warm and dry. No rash or lesions on limited exam. Extremities: No cyanosis, clubbing, or edema. Radial and pedal pulses intact. Neurological: Alert and oriented to name, age, date of , place, year, and president. She is aware that she is at the hospital. Cranial nerves 2-12 are grossly intact. Speech is clear. No facial asymmetry. No gross focal deficits to casual conversation. Psychiatric: Pleasant and cooperative. She recognizes the confusion and hallucinations that she has been having. Objective Data Vital Signs Vital Signs: Vital Signs - 24 hr 06/26/24 22:15 06/26/24 22:38 06/26/24 22:40 Temperature Pulse Rate 93 86 84 Respiratory Rate 13 20 Blood Pressure 149/67 H 137/74 Pulse Oximetry 100 100 Oxygen Delivery 06/27/24 00:28 06/27/24 00:47 06/27/24 00:47 Temperature Pulse Rate 85 96 88 Respiratory Rate 14 Blood Pressure 163/74 H 186/91 H 181/90 H Pulse Oximetry 98 Oxygen Delivery 06/27/24 00:48 06/27/24 01:05 06/27/24 01:14 Temperature 97.6 F Pulse Rate 88 74 Respiratory Rate 16 Blood Pressure 162/89 H 162/82 H Pulse Oximetry 99 Oxygen Delivery Room Air 06/27/24 01:40 06/27/24 04:45 06/27/24 08:50 Temperature 98 F Pulse Rate 85 84 Respiratory Rate 14 16 Blood Pressure 163/74 H 153/75 H Pulse Oximetry 98 99 Oxygen Delivery Room Air 06/27/24 09:45 06/27/24 09:47 06/27/24 09:49 Temperature Pulse Rate Respiratory Rate Blood Pressure 135/74 130/84 126/93 H Pulse Oximetry Oxygen Delivery 06/27/24 14:17 06/27/24 14:17 06/27/24 14:18 Temperature 97.1 F L Pulse Rate 82 80 Respiratory Rate 16 Blood Pressure 173/82 H 163/119 H Pulse Oximetry 100 Oxygen Delivery 06/27/24 14:18 06/27/24 15:10 Temperature Pulse Rate Respiratory Rate Blood Pressure 152/76 H Pulse Oximetry Oxygen Delivery Room Air Intake/Output Intake/Output: Intake & Output 06/24/24 06/25/24 06/26/24 06/27/24 23:59 23:59 23:59 23:59 Intake Total 120 Output Total 75 150 Balance -75 -30 Meds/Results Medications: Active Medications Generic Name Dose Route Start Last Admin Trade Name Cesar PRN Reason Stop Dose Admin Acetaminophen 650 mg 06/26/24 23:36 Acetaminophen 325 Mg Tablet PO Q4H PRN Mild Pain (1-3) or Fever Docusate Sodium 100 mg 06/27/24 09:00 06/27/24 09:58 Docusate Sodium 100 Mg Capsule PO Not Given DAILY MANJU Famotidine 20 mg 06/27/24 09:00 06/27/24 09:54 Famotidine 20 Mg Tablet PO 20 mg Q12HR MANJU Administration Levothyroxine Sodium 50 mcg 06/27/24 06:30 06/27/24 05:40 Levothyroxine Sodium 50 Mcg Tablet PO 50 mcg DAILY@0630 MANJU Administration Lidocaine 1 patch 06/27/24 06:00 Lidocaine 5% Patch TRANSDERM DAILY PRN pain Midodrine 10 mg 06/27/24 09:00 06/27/24 15:53 Midodrine Hcl 10 Mg Tablet PO Not Given TID [facility] Ondansetron HCl 4 mg 06/26/24 23:36 Ondansetron Inj 4 Mg/2 Ml Vial IV PUSH Q4H PRN Nausea Radiology Results: ITS Impressions Chest X-Ray 06/26/24 22:10 IMPRESSION: Interstitial thickening in the left midzone unchanged. Possible rounded opacity in the right lower lobe which may be summation shadow. A repeat exam in 3 months is advised. Otherwise, No acute cardiopulmonary pathology. Head CT 06/26/24 22:37 IMPRESSION: No acute intracranial findings. Brain MRI 06/27/24 15:08 IMPRESSION: 1. No acute intracranial process no abnormally enhancing brain lesions. 2. Normal aging brain with moderate nonspecific periventricular predominant white matter T2 hyperintensity consistent with chronic small vessel ischemic disease. Labs Labs: Laboratory Results - last 24 hr 06/26/24 06/26/24 06/27/24 21:55 23:20 10:17 WBC 5.4 RBC 3.42 L Hgb 10.8 L Hct 35.8 L MCV 104.7 H MCH 31.6 MCHC 30.2 L RDW 14.1 Plt Count 388 H MPV 8.4 Immature Gran % (Auto) 0.6 H Neut % (Auto) 62.8 Lymph % (Auto) 24.6 [place] % (Auto) 7.2 Eos % (Auto) 3.9 Baso % (Auto) 0.9 Lymph # (Auto) 1.33 [place] # (Auto) 0.4 Eos # (Auto) 0.2 Baso # (Auto) 0.1 Abs Immat Gran (auto) 0.03 Absolute Neuts (auto) 3.4 Absolute Nucleated RBC 0.000 Nucleated RBC % 0.0 PT 13.6 INR 1.0 APTT 26.5 Sodium 143 Potassium 4.0 Chloride 109 H Carbon Dioxide 19 L Anion Gap 15 H BUN 17 Creatinine 0.77 Estim Creat Clear Calc 31 Estimated GFR > 60 Glucose 116 H Calcium 8.6 Total Bilirubin 0.3 AST 23 ALT 13 Alkaline Phosphatase 135 H Total Protein 8.0 Albumin 4.4 Urine Color Yellow Urine Appearance Clear Urine pH 7.0 Ur Specific [place] 1.023 Urine Protein Negative Urine Glucose (UA) Negative Urine Ketones Negative Ur Blood (Man) Negative Urine Nitrate Negative Urine Bilirubin Negative Urine Urobilinogen 1.0 Leukocyte Esterase Rfl Negative Syphilis IgG/IgM Ab Negative Quality VTE Prophylaxis VTE prophylaxis: mechanical ordered
[2024-06-28] VITALS (12 sets, daily range): BP systolic 98–172; BP diastolic 53–90; PULSE 69–96; RESP 16–20; TEMP 35.7–36.2; O2SAT 95–100
[2024-06-28] MEDS: lisinopriL 5 MG TABLET PO (08:01)
[2024-06-28] MEDS: FAMOTIDINE 20 MG TABLET PO ×2 (08:01→20:22)
[2024-06-28] MEDS: DOCUSATE SODIUM 100 MG CAPSULE PO (08:01)
--- NOTE | 2024-06-28 12:43 | PCNEURO ---
EEG was attempted today but patient is very confused and unable to cooperate with the technologist to complete.
--- NOTE | 2024-06-28 12:51 | P.PNIM_ITS ---
Progress Note: A&P Assessment and Plan (1) Hallucinations: Code(s): R44.3 - Hallucinations, unspecified Status: Acute (2) Confusion: Code(s): R41.0 - Disorientation, unspecified Status: Acute (3) Hypothyroidism: Code(s): E03.9 - Hypothyroidism, unspecified Status: Acute (4) Macrocytic anemia: Code(s): D53.9 - Nutritional anemia, unspecified Status: Acute Plan Worsening AMS Daughter noted that since her last hospitalization patient has had deep decline in mental status otherwise noted mild confusion prior to previous hospitalization alert and oriented x2, not to time MRI brain no acute changes, b12 and folate from prior admission wnl, Syphylis IgG/Igm negative EEG pending neurology following Hypothyroidism continue home Levothyroxine Anemia hb 10.8 Iron panel pending B12 and folate normal DVT prophylaxis on Sq Lovenox Subjective Date/time seen: 06/28/24 12:51 Interval history: Comfortable at bedside Awaiting EEG Review of Systems Review of Systems: 12 systems were reviewed and are negativ e except for as per HPI. Exam Narrative: General: comfortable no acute distress HEENT: Arcus senilis. PERRL, EOMI. Sclera anicteric. Oral mucosa moist. Neck: Supple. Respiratory: Lungs are clear to auscultation bilaterally. Cardiovascular: Regular rate and rhythm with S1-S2. Gastrointestinal: Abdomen is soft, nontender, and nondistended with positive bowel sounds. Skin: Warm and dry. No rash or lesions on limited exam. Extremities: No cyanosis, clubbing, or edema. Radial and pedal pulses intact. Neurological: Alert and oriented to name, age, date of , place, year, and president. She is aware that she is at the hospital. Cranial nerves 2-12 are grossly intact. Speech is clear. No facial asymmetry. No gross focal deficits to casual conversation. Psychiatric: Pleasant and cooperative. She recognizes the confusion and hallucinations that she has been having. Objective Data Vital Signs Vital Signs: Vital Signs - 24 hr 06/27/24 14:17 06/27/24 14:17 06/27/24 14:18 Temperature 97.1 F L Pulse Rate 82 80 Respiratory Rate 16 Blood Pressure 173/82 H 163/119 H Pulse Oximetry 100 Oxygen Delivery 06/27/24 14:18 06/27/24 15:10 06/27/24 20:00 Temperature Pulse Rate Respiratory Rate Blood Pressure 152/76 H Pulse Oximetry Oxygen Delivery Room Air Room Air 06/27/24 22:36 06/27/24 22:39 06/27/24 22:51 Temperature 97.0 F L 97.0 F L 97.6 F Pulse Rate 89 89 94 Respiratory Rate 20 20 20 Blood Pressure 150/86 H 150/86 H 174/79 H Pulse Oximetry 100 100 100 Oxygen Delivery 06/27/24 22:51 06/28/24 06:00 06/28/24 08:00 Temperature 97.0 F L 97.1 F L 97.1 F L Pulse Rate 100 80 87 Respiratory Rate 20 18 16 Blood Pressure 164/83 H 172/90 H 137/72 Pulse Oximetry 100 100 100 Oxygen Delivery 06/28/24 08:00 06/28/24 08:45 06/28/24 08:52 Temperature 97.1 F L Pulse Rate 88 Respiratory Rate 16 Blood Pressure 124/83 Pulse Oximetry 100 Oxygen Delivery Room Air Room Air 06/28/24 08:53 Temperature 97.1 F L Pulse Rate 96 Respiratory Rate 16 Blood Pressure 109/59 L Pulse Oximetry 99 Oxygen Delivery Intake/Output Intake/Output: Intake & Output 06/25/24 06/26/24 06/27/24 06/28/24 23:59 23:59 23:59 23:59 Intake Total 240 640 Output Total 75 150 Balance -75 90 640 Meds/Results Medications: Active Medications Generic Name Dose Route Start Last Admin Trade Name Freq PRN Reason Stop Dose Admin Acetaminophen 650 mg 06/26/24 23:36 Acetaminophen 325 Mg Tablet PO Q4H PRN Mild Pain (1-3) or Fever Docusate Sodium 100 mg 06/27/24 09:00 06/28/24 08:01 Docusate Sodium 100 Mg Capsule PO 100 mg DAILY MANJU Administration Famotidine 20 mg 06/27/24 09:00 06/28/24 08:01 Famotidine 20 Mg Tablet PO 20 mg Q12HR MANJU Administration Levothyroxine Sodium 50 mcg 06/27/24 06:30 06/28/24 05:46 Levothyroxine Sodium 50 Mcg Tablet PO Not Given DAILY@0630 MANJU Lidocaine 1 patch 06/27/24 06:00 Lidocaine 5% Patch TRANSDERM DAILY PRN pain Lisinopril 5 mg 06/28/24 09:00 06/28/24 08:01 Lisinopril 5 Mg Tablet PO 5 mg QAM MANUJ Administration Midodrine 10 mg 06/27/24 09:00 06/28/24 08:53 Midodrine Hcl 10 Mg Tablet PO Not Given TID MANJU Olanzapine 2.5 mg 06/28/24 02:52 Olanzapine 2.5 Mg Tablet PO HS PRN dementia Ondansetron HCl 4 mg 06/26/24 23:36 Ondansetron Inj 4 Mg/2 Ml Vial IV PUSH Q4H PRN Nausea Radiology Results: ITS Impressions Chest X-Ray 06/26/24 22:10 IMPRESSION: Interstitial thickening in the left midzone unchanged. Possible rounded opacity in the right lower lobe which may be summation shadow. A repeat exam in 3 months is advised. Otherwise, No acute cardiopulmonary pathology. Head CT 06/26/24 22:37 IMPRESSION: No acute intracranial findings. Brain MRI 06/27/24 15:08 IMPRESSION: 1. No acute intracranial process no abnormally enhancing brain lesions. 2. Normal aging brain with moderate nonspecific periventricular predominant white matter T2 hyperintensity consistent with chronic small vessel ischemic disease. Quality VTE Prophylaxis VTE prophylaxis: mechanical ordered
[2024-06-28] MEDS: MIDODRINE HCL 10 MG TABLET PO ×2 (14:11→17:46)
[2024-06-28] MEDS: OLANZapine 2.5 MG TABLET PO (20:22)
[2024-06-28] MEDS: ACETAMINOPHEN 325 MG TABLET 650 MG PO (20:25)
[2024-06-29 05:12] VITALS: BP 149/71; PULSE 82; RESP 20; TEMP 36.3; O2SAT 100
[2024-06-29] MEDS: LEVOTHYROXINE SODIUM 50 MCG TABLET PO (06:07)
[2024-06-29 07:30] LABS: Basophils Absolute Auto 0.1 K/mm3 (0.0-0.1); Basophils Percent Auto 0.9 % (0.2-1.2); Eosinophils Absolute Auto 0.3 K/mm3 (0-0.3); Eosinophils Percent Auto 6.1 % (0-4.4); Hematocrit 36.7 % (37.0-47.0); Hemoglobin 11.1 g/dL (12.0-15.0); Immature Granulocyte Absolute 0.02 K/mm3 (0.00-0.031); Immature Granulocyte Percent A 0.4 % (0-0.5); Lymphocytes Absolute Auto 1.68 K/mm3 (0.9-3.2); Lymphocytes Percent Auto 31.9 % (18.3-44.2); Mean Corpuscular HGB Conc 30.2 g/dl (32-36); Mean Corpuscular Hemoglobin 31.4 pg (26-34); Mean Platelet Volume 8.4 fl (7.4-10.4); Monocytes Absolute Auto 0.4 K/mm3 (0.1-0.6); Monocytes Percent Auto 8.3 % (2.6-8.5); Neutrophils Absolute Auto 2.8 K/mm3 (1.3-6.7); Neutrophils Percent Auto 52.4 % (45.5-73.1); Platelet Count Result 393 k/mm3 (150-375); Red Blood Count 3.53 M/mm3 (4.2-5.4); Red Cell Distribution Width 14.2 % (11.5-14.5); White Blood Count 5.3 K/mm3 (4.5-10.0)
[2024-06-29 07:39] LABS: Alanine Aminotransferase 10 U/L (6-35); Albumin Level 4.1 g/dL (3.5-5.1); Alkaline Phosphatase 76 U/L (38-126); Anion Gap 8 mmol/L (4-12); Aspartate Amino Transferase 23 U/L (14-36); Bilirubin,Total 0.5 mg/dL (0.2-1.3); Blood Urea Nitrogen 19 mg/dL (7-17); Calcium 8.6 mg/dL (8.4-10.2); Carbon Dioxide 24 mmol/L (22-30); Chloride 110 mmol/L (98-107); Estimated CRCL calculation 30 ml/min; Estimated Glomerular Filt Rate 58; Glucose 86 mg/dL (65-110); Magnesium 2.6 mg/dL (1.6-2.3); Potassium 4.3 mmol/L (3.4-5.0); Sodium 142 mmol/L (137-145)
[2024-06-29 07:43] LABS: Iron 90 ug/dL (37-170)
[2024-06-29 07:53] LABS: Percent Iron Saturation 33 % (20-50)
[2024-06-29 08:00] VITALS: BP 149/71; PULSE 82; RESP 20; TEMP 36.3; O2SAT 100
[2024-06-29] MEDS: lisinopriL 5 MG TABLET PO (08:29)
[2024-06-29] MEDS: DOCUSATE SODIUM 100 MG CAPSULE PO (08:29)
[2024-06-29] MEDS: FAMOTIDINE 20 MG TABLET PO (08:29)
--- NOTE | 2024-06-29 11:21 | PM.DS ---
DS: Admitting Diagnosis Discharge Date 06/29/2024 Admitting Diagnosis Confusion. DS: Discharge Diagnosis Discharge Diagnosis (1) Dementia of Alzheimer's type with behavioral disturbance: Code(s): G30.9 - Alzheimer's disease, unspecified; F02.818 - Dementia in other diseases classified elsewhere, unspecified severity, with other behavioral disturbance Status: Acute DS: Summary Hospital Course Hospital Course: This is a very pleasant 81-year-old female with suspected dementia, vertigo, orthostatic hypotension, hypothyroidism, breast cancer, and gastroesophageal reflux disease who presented to the emergency department via EMS from home for evaluation of confusion. She is able to provide some history and her daughter at bedside provides additional information with the patient's permission. In the ED: Vital signs on arrival include a temperature 97.6?, blood pressure 196/93, pulse 90, respiratory rate 16, SpO2 100% on room air. Labs are significant for a hemoglobin of 10.8, MCV 104.7, chloride 109, carbon dioxide 19, anion gap 15, creatinine 0.77, glucose 116. Urinalysis was unremarkable. Brain CT showed no acute findings. Chest x-ray showed interstitial thickening in the left mid zone which is unchanged. AT bedside daughter noted that patient has been having issues with memory for more than a year, however, her symptoms became exaggerated after she went to Rehab in April and was brought to the ER this time for worsening non specific behavioural disturbance and AMS. On my first encounter patient was alert and oriented x2, unable to tell the year, month or day. otherwise was having normal conversation. MRI brain was unremarkable, Neurology was consulted and he recommended EEG which the patient declined. Patient continued to be alert, eating and self-ambulatory. B12, folate and Syphilis antibody negative. Neurology recommended Namenda and to continue PRN olanzapine, patient discharged on these meds. Patient discharged home. F/u wiht PCP in 3-5 days, f/u with neurology as instructed. Time Spent with Patient Time attestation: Total time spent providing and/or coordinating discharge services: DS: Data Data Completed and Pending Pending studies at discharge: Pending at discharge 06/27/24 09:55 Cytology [PTH] Routine Labs on day of discharge: Labs from last 24 hours 06/29/24 07:15 WBC 5.3 RBC 3.53 L Hgb 11.1 L Hct 36.7 L MCV 104.0 H MCH 31.4 MCHC 30.2 L RDW 14.2 Plt Count 393 H MPV 8.4 Immature Gran % (Auto) 0.4 Neut % (Auto) 52.4 Lymph % (Auto) 31.9 [place] % (Auto) 8.3 Eos % (Auto) 6.1 H Baso % (Auto) 0.9 Lymph # (Auto) 1.68 [place] # (Auto) 0.4 Eos # (Auto) 0.3 Baso # (Auto) 0.1 Abs Immat Gran (auto) 0.02 Absolute Neuts (auto) 2.8 Absolute Nucleated RBC 0.000 Nucleated RBC % 0.0 Sodium 142 Potassium 4.3 Chloride 110 H Carbon Dioxide 24 Anion Gap 8 BUN 19 H Creatinine 0.91 Estim Creat Clear Calc 30 Estimated GFR 58 L Glucose 86 Calcium 8.6 Magnesium 2.6 H Iron 90 TIBC 272 % Saturation 33 Ferritin 92.20 Total Bilirubin 0.5 AST 23 ALT 10 Alkaline Phosphatase 76 Total Protein 7.0 Albumin 4.1 Discharge Plan Discharge Attending physician on discharge: Jewel Jones Consulting providers: Pablo Booth Discharging Clinician: Jewel Jones Anticipated Discharge Date/Time: 06/28/24 16:30 Patient Disposition: Home Activity: as tolerated Diet: as tolerated and regular Patient Instructions: Antibiotic Form Patient Language: Pashto Stand Alone Forms: General Discharge Information Follow-up/Referrals: Frederic Regalado DO [Primary Care Provider] - (F/u with PCP in 3-5 days ) Pablo Booth MD [Physician] - (F/u with neurology as instructed ) Discharge Medications: New lisinopril 5 mg Tablet 5 mg PO QAM 30 Days Qty: 30 0RF midodrine 10 mg Tablet 10 mg PO TID 14 Days Qty: 42 0RF memantine [Namenda XR] 7 mg capsule,sprinkle,ER 24hr 7 mg PO DAILY 30 Days Qty: 30 0RF Continued ibandronate 150 mg tablet 150 mg PO MONTHLY famotidine 20 mg Tablet 20 mg PO Q12HR Qty: 60 0RF midodrine 10 mg Tablet 10 mg PO TID Qty: 90 0RF levothyroxine 50 mcg tablet 50 mcg PO DAILY Qty: 60 0RF lidocaine 4 % adhesive patch,medicated 1 patch topical DAILY PRN (Reason: pain) olanzapine [Zyprexa] 2.5 mg tablet 2.5 mg PO HS PRN (Reason: dementia) docusate sodium [Dulcolax Stool Softener (dss)] 100 mg capsule 100 mg PO DAILY hydrocodone-acetaminophen 5-325 mg Tablet 1 tablet PO Q6H PRN (Reason: Pain Rated 4-6) Date of admission: 06/27/24 07:12 Primary Care Provider: Frederic Regalado Admitting Provider: Javon Nguyen Attending physician on admission: Javon Nguyen Condition: Stable
[2024-07-01 15:03] LABS: CMV DNA Quant PCR IU/mL Not Detected (Not Detected); Cytomegalovirus DNA Quant PCR Not Detected Log IU/mL (Not Detected)
[2024-07-02 00:34] LABS: Varicella IgM Antibody 0.12
[2024-07-02 07:48] LABS: JC Polyoma Virus DNA, QL NOT DETECTED; JC Polyoma Virus Source PLASMA
== END 2024-06-29 10:45 | disposition home or self-care (01) | DRG 57 ==
LOC: ANHED 06-27 00:02 → ANH3MED 06-27 00:12
PROVIDERS: Psychiatry & Neurology Neurology; Admitting Provider Hospitalist; Emergency Provider Student in an Organized Health Care Education/Training Program; PCP Family Medicine; Visit Provider Internal Medicine
DX: G30.9 Alzheimer's disease, unspecified (principal); F02.82 Dementia in other diseases classified elsewhere, unspecified severity, with psychotic disturbance; F02.818 Dementia in other diseases classified elsewhere, unspecified severity, with other behavioral disturbance; R44.2 Other hallucinations; I10 Essential (primary) hypertension; E03.9 Hypothyroidism, unspecified; K21.9 Gastro-esophageal reflux disease without esophagitis; M81.0 Age-related osteoporosis without current pathological fracture; E78.5 Hyperlipidemia, unspecified; D53.9 Nutritional anemia, unspecified; Z85.3 Personal history of malignant neoplasm of breast; Z87.11 Personal history of peptic ulcer disease; Z87.891 Personal history of nicotine dependence
CPT/HCPCS: 36415; 70450; 70553; 71046; 80053; 81003; 82728; 83540; 83550; 83735; 85025; 85610; 85730; 86403; 86593; 86617; 86787; 87497; 87529; 87798; 93005; 97161; 97165; 99285; A9270; A9579; G0378

== ENCOUNTER 2025-01-10 14:37 | Outpatient (CLI) | payer OTHER, SELFPAY ==
--- NOTE | ~2025-01-10 | DEXA_ITS ---
Bone Density Report Name: JUAN LUIS DANIELS Age: 89 Sex: Female Ethnicity: White Date of : 1935 Indication: osteopenia; height loss; cancer; Referring Provider: ANDREW BUSCH Study: Bone densitometry was performed. Exam Date: January 10, 2025 Accession number: [id number] Bone Density: Region BMD T-score Z-score Classification AP Spine(L1-L4) 0.904 -1.3 1.6 Osteopenia Femoral Neck (Left) 0.612 -2.1 0.4 Osteopenia Total Hip (Left) 0.798 -1.2 1.2 Osteopenia Femoral Neck (Right) 0.611 -2.1 0.4 Osteopenia Total Hip (Right) 0.739 -1.7 0.7 Osteopenia Total Hip Mean 0.768 -1.5 1.0 Osteopenia World Health Organization criteria for BMD impression classify patients as: Normal (T-score at or above -1.0), Osteopenia (T-score between -1.0 and -2.5), or Osteoporosis (T-score at or below -2.5). 10-year Fracture Risk(1): Major Osteoporotic Fracture 12% Hip Fracture 4.3% Reported Risk Factors: [place] (), Neck BMD=0.611, BMI=21.4 (1) FRAX(R) Version 3.08. Fracture probability calculated for an untreated patient. Fracture probability may be lower if the patient has received treatment. Previous Exams: Region Exam Age BMD T-score BMD Change BMD Change Date g/cm2 vs Baseline vs Previous AP Spine (L1-L4) 01/10/2025 89 0.904 -1.3 -0.050 (-5.3%) -0.050 (-5.3%) 08/13/2018 83 0.954 -0.8 Total Hip(Left) 01/10/2025 89 0.798 -1.2 -0.059 (-6.9%) -0.059 (-6.9%) 08/13/2018 83 0.857 -0.7 Total Hip(Right) 01/10/2025 89 0.739 -1.7 -0.063 (-7.9%) -0.063 (-7.9%) 08/13/2018 83 0.803 -1.1 *Denotes significance at 95% confidence level, LSC for AP Spine = 0.022 g/cm2, LSC for Total Hip = 0.027 g/cm2 # Denotes dissimilar scan types or analysis methods Clinical Information Provided by Patient: Has used the following medications: Michelle (i.e. ibandronate) Has the following medical conditions: Cancer Patient maximum height was 62 Menopause Age: 51 No regular weight bearing exercise Onset of menses at age 14 Number of children 3 Impression: The patient has low bone mass, based on the Left Femoral Neck T-score. The patient has an estimated ten-year risk of hip fracture of 4.3% and an estimated ten-year risk of major fracture of 12%, based on the WHO FRAX algorithm. No significant bone loss was observed. Discussion: BONE DENSITY IS LOW AT ONE OR MORE SKELETAL SITES. THE PATIENT'S BMD AND CLINICAL RISK FACTORS CONTRIBUTE TO THIS PATIENT'S INCREASED RISK OF FRACTURE. This patient's lowest T-score is low at one or more skeletal sites. It meets the World Health Organization's (WHO) criteria for ?low bone mass? (T-score between -1.0 and -2.5). The patient's 10-year risk of hip fracture as calculated by FRAX exceeds the threshold where pharmacological therapy is recommended by the National Osteoporosis Foundation (NOF). However, all treatment decisions require clinical judgment and consideration of individual patient factors, including patient preferences, comorbidities, previous drug use, risk factors not captured in the FRAX model (e.g., frailty, falls, vitamin D deficiency, increased bone turnover, interval significant decline in bone density) and possible under or overestimation of fracture risk by FRAX. The patient should follow a healthful lifestyle (good nutrition with adequate calcium and vitamin D, and appropriate weight-bearing exercise). Follow-Up: Consider a repeat BMD and Vertebral Fracture Assessment (VFA) exam in 2 years or sooner if medically necessary, to reassess this patient's status. Reported by: ELIJAH on 01/10/2025 3:22:00 PM. Reviewed, dictated and finalized at location A.
== END 2025-01-10 14:38 | disposition home or self-care (01) ==
LOC: ANHFOHIMG 14:40
PROVIDERS: PCP Family Medicine; Visit Provider Family Medicine
DX: M85.89 Other specified disorders of bone density and structure, multiple sites (principal); M81.0 Age-related osteoporosis without current pathological fracture
CPT/HCPCS: 77080